=== PATIENT | male | born 1945 | race Caucasian/White ===

== ENCOUNTER 2016-07-26 08:29 | Day surgery (SDC) | payer MEDICARE ==
--- NOTE | 2016-07-25 08:04 | HP ---
DATE OF SURGERY: 07/26/2016 ADMISSION DIAGNOSIS: Screening colonoscopy. ANTICIPATED PROCEDURE: Colonoscopy. HISTORY OF PRESENT ILLNESS: The patient presents for a two year follow up status post resection. He had a partial colectomy open hand assist by Dr. Mathews 07/04/2014. PAST MEDICAL HISTORY: ALLERGIES: NONE. MEDICATIONS: None. PAST SURGICAL HISTORY: 2014. SOCIAL HISTORY: Negative. FAMILY HISTORY: Negative. REVIEW OF SYSTEMS: Negative. PHYSICAL EXAMINATION: VITAL SIGNS: Normal. CHEST: Clear. COR: Regular. ABDOMEN: Well healed incision. IMPRESSION: Follow up. PLAN: Colonoscopy.
[~2016-07-26 08:29] MED LIST: DEMEROL 50 MG IV ONE; VERSED 5 MG/5 ML IV ONE
[2016-07-26] MEDS ORDERED: Sodium Chloride 0.9% 1000 ML 1,000 ML IV SCH (08:45)
[2016-07-26] MEDS ORDERED: Sodium Chloride 0.9% 1000 ML 1,000 ML ONE (12:49)
[2016-07-26 15:12] VITALS: BP 108/48; PULSE 56; O2SAT 97
--- NOTE | 2016-07-26 15:13 | OP ---
SURGERY DATE: 07/26/16 SURGERY TIME: 1245 PREOPERATIVE DIAGNOSIS: 1. TWO YEAR FOLLOW-UP OF COLON RESECTION FOR TUMOR. POSTOPERATIVE DIAGNOSIS: 1. 1 POLYP, 8 MM IN MID TRANSVERSE COLON. PROCEDURE: 1. Colonoscopic examination complete with hot polypectomy X 1. SURGEON: Gokul Reyes M.D. ANESTHESIA: IV sedation. COMPLICATIONS: None. CONDITION: Stable. INDICATION: 71 y/o requiring follow-up. OPERATIVE PROCEDURE: Taken to endoscopy. Left lateral decubitus position. Anal digital examination satisfactory. Scope introduced. Scope advanced to the ileum. On circumferential withdrawal, residual ileocolonic area satisfactory. Transverse colon satisfactory. In the splenic flexure portion of the left transverse colon an 8 mm polyp was picked up and taken to extinction. Hepatic flexure satisfactory. Descending satisfactory. Sigmoid slightly tortuous. Rectum and anus satisfactory. IMPRESSION: 1. COMPLETE EXAM. 2. HOT POLYPECTOMY X 1. FOLLOW-UP: 2 years.
== END 2016-07-26 14:45 | disposition home or self-care (01) ==
LOC: SDC 08:29
PROVIDERS: ATTEND Surgery
PROC: 0DJD8ZZ Inspection of Lower Intestinal Tract, Via Natural or Artificial Opening Endoscopic (ICD-10-PCS; principal; 2016-07-26)
DX: Z12.11 Encounter for screening for malignant neoplasm of colon (principal); Z85.038 Personal history of other malignant neoplasm of large intestine; Z90.49 Acquired absence of other specified parts of digestive tract
CPT/HCPCS: G0105 ×2; 36415; J2175; J2250

== ENCOUNTER 2019-01-05 12:48 | Day surgery (SDC) | payer MEDICARE ==
--- NOTE | 2019-01-05 08:44 | HP ---
DATE OF SURGERY: 01/05/2019 HISTORY OF PRESENT ILLNESS: The patient is a 73 year-old who has a cyst on his head increasing in size in need of excision at this point. PAST MEDICAL HISTORY: Hypertension, hypothyroidism. He is a little bit overweight. He had prostate cancer in the past. PAST SURGICAL HISTORY: Back surgery. Hip arthroplasty in the past. Colonoscopy with polyps in the past. Laparotomy partial colectomy for benign polyp in the past. He had prostate surgery in the past. MEDICATIONS: Lisinopril. ALLERGIES: NKDA. FAMILY HISTORY: Negative in regards to this problem. SOCIAL HISTORY: No smoking. He drinks some alcohol denies abuse. REVIEW OF SYSTEMS: Fourteen systems reviewed. No chest pain or palpitations other systems negative or noncontributory as above and per preadmission questionnaire. PHYSICAL EXAMINATION: GENERAL: No acute distress. HEENT: Sclerae nonicteric. Enlarging cyst or nodule on his scalp. NECK: No JVD. CHEST: Equal excursion, nonlabored breathing. CVS: Regular rate and rhythm. ABDOMEN: Soft. EXTREMITIES: No significant edema. NEURO: Alert, oriented, moving extremities symmetrically. No gross motor deficits noted. IMPRESSION: He has enlarging cyst or nodule on his scalp. I feel he will benefit from excision and biopsy. Risks and benefits explained in detail including but not limited to bleeding or infection, risk of wound dehiscence possibly requiring healing by secondary intent or packing, general risk of aches, pains, burning or numbness possibly termite control technician or chronic in nature, general risk of anesthesia. He also understands there is possibility what we excise will not return but he could get a similar cyst or nodule adjacent to or elsewhere on his scalp or body. He understands and agrees to the planned procedure, will proceed with outpatient excisional biopsy scalp cyst or nodule.
[~2019-01-05 12:48] MED LIST changes: +CEFAZOLIN 2 GM-D5W BAG** 2 GM/50 ML ML IV SCH; -DEMEROL 50 MG IV ONE; +Lactated Ringers 0 ML IV ONE; +Lactated Ringers 1,000 ML IV ONE; +Lactated Ringers 1,000 ML IV SCH; +Sensorcaine 0.25% 10 ML ONE; -VERSED 5 MG/5 ML IV ONE; +XYLOCAINE 1% HCL 20 ML MDV ONE
[2019-01-05] MEDS ORDERED: DIPRIVAN 200 MG/20 ML IV ONE (14:28)
[2019-01-05] MEDS ORDERED: SUBLIMAZE 100 MCG/2 ML ONE ×2 (14:28→14:42)
[2019-01-05] MEDS ORDERED: Versed 2 MG/2 ML Injection ONE (14:29)
[2019-01-05 15:44] VITALS: O2SAT 95
[2019-01-05] MEDS ORDERED: Zestril 20 MG PO ONE (16:13)
[2019-01-05 16:27] VITALS: PULSE 70
[2019-01-05 16:51] VITALS: BP 150/84
--- NOTE | 2019-01-06 10:24 | OP ---
SURGERY DATE/TIME: 01/05/2019 1427 PREOPERATIVE DIAGNOSIS: Enlarging scalp cyst or nodule. POSTOPERATIVE DIAGNOSIS: Enlarging scalp cyst or nodule. PROCEDURE: Excisional biopsy scalp cyst approximately 1.3 cm with intermediate closure. SURGEON: Dr. Juan Mathews. ANESTHESIA: General. ESTIMATED BLOOD LOSS: Minimal. INDICATIONS: As noted above. Risks and benefits explained in detail and not limited to and consent obtained. DESCRIPTION OF PROCEDURE AND FINDINGS: The patient is taken to the operating room. General anesthesia induced. The scalp prepped and draped in usual sterile fashion. After official time out and no disagreement with planned procedure, incision made directly overlying the presumed cyst. Dissection carried down circumferentially around what appeared to be a cyst and carefully passed off. It measured about 1.3 cm with margins, passed off for pathology. The wound is irrigated out. Good hemostasis noted. It was then closed in layers with deep and superficial subcu closed with 3-0 Vicryl. Skin closed with combination of interrupted and vertical mattress 3-0 Prolene. Sterile dressing applied. Patient tolerated the procedure well. There were no immediate complications. Findings discussed with the family out in the waiting. He was transferred to recovery room in stable condition.
== END 2019-01-05 16:45 | disposition home or self-care (01) ==
LOC: SDC 12:48
PROVIDERS: ATTEND Surgery
DX: L72.11 Pilar cyst (principal)
CPT/HCPCS: 99100; J0690; J2250; J2704; J3010; A9270-GY

== ENCOUNTER 2020-02-15 08:54 | Day surgery (SDC) | payer MEDICARE ==
--- NOTE | 2020-02-15 08:27 | HP ---
DATE OF SURGERY: 02/15/2020 HISTORY OF PRESENT ILLNESS: The patient is a 74 year old with no bloody stools, no pain, and no change in bowel movements. He had history of polyps in the past. He is in need of follow up colonoscopy. PAST MEDICAL HISTORY: Hypertension. Diabetes with polyneuropathy. 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 Endoscopy in the past. PAST SURGICAL HISTORY: Ventral hernia repair. Laparoscopic assisted partial colectomy right colon in the past and re-anastomosis. MEDICATIONS: He takes some blood pressure medication the name of he does not know. ALLERGIES: NKDA. FAMILY HISTORY: Negative in regards to this problem. SOCIAL HISTORY: Denies smoking. Does drink some alcohol denies abuse. REVIEW OF SYSTEMS: Fourteen systems reviewed. No chest pain or palpitations. Other systems negative or noncontributory as above and per preadmission questionnaire. PHYSICAL EXAMINATION: GENERAL: No acute distress. HEENT: Sclerae nonicteric. NECK: No JVD. CHEST: Equal excursion, nonlabored breathing. CVS: Regular rate and rhythm. ABDOMEN: Soft. No peritoneal signs. EXTREMITIES: No significant edema. NEURO: Alert, oriented, moving extremities symmetrically. No gross motor deficits noted. RECTAL: Deferred timed to endoscopy exam. PSYCH: Appropriate mood and affect. IMPRESSION: History of tubulovillous adenoma in the past. He is in need of follow up colonoscopic evaluation. General risk of bleeding or infection, risk of bowel injury or perforation possibly requiring open procedure, risk of missed or nondiagnosis or incomplete exam possibly requiring barium enema, other studies or procedures, general risk of anesthesia or sedation, risk of bowel prep but not limited to. He understands and agrees to the planned procedure, will proceed with outpatient colonoscopy.
[~2020-02-15 08:54] MED LIST changes: -CEFAZOLIN 2 GM-D5W BAG** 2 GM/50 ML ML IV SCH; +DIPRIVAN 200 MG/20 ML IV ONE; +Ketamine HCl 50 MG/ML ONE; -Lactated Ringers 0 ML IV ONE; -Lactated Ringers 1,000 ML IV ONE; -Lactated Ringers 1,000 ML IV SCH; -Sensorcaine 0.25% 10 ML ONE; -XYLOCAINE 1% HCL 20 ML MDV ONE
[2020-02-15] MEDS ORDERED: Lactated Ringers 1,000 ML IV SCH (09:30)
[2020-02-15 12:02] VITALS: PULSE 55
[2020-02-15 12:15] VITALS: BP 150/99; O2SAT 99
--- NOTE | 2020-02-15 15:43 | OP ---
SURGERY DATE/TIME: 02/15/2020 1057 PREOPERATIVE DIAGNOSES: 1) History of tubulovillous adenoma. 2) History of right colectomy in the past, need follow up colonoscopy. POSTOPERATIVE DIAGNOSES: 1) Small colon polyp. 2) Mild diverticulosis. 3) Fair but slightly limited bowel prep. 4) Small internal hemorrhoids. PROCEDURES: 1) Colonoscopy to terminal ileum/ileocolic anastomotic site. 2) Hot snare polypectomy small descending colon polyp. 3) Hot biopsy removal of small early polyp versus hyperplastic lesion in the rectum x2. SURGEON: Dr. Juan Mathews. CLERICAL SECRETARY: Floresita Luke, Medical Student III. ANESTHESIA: MAC. ESTIMATED BLOOD LOSS: Minimal. INDICATIONS: As noted above. Risks and benefits explained in detail but not limited to and consent obtained. DESCRIPTION OF PROCEDURE AND FINDINGS: The patient is taken to the operating room. MAC anesthesia introduced. After official time out and no disagreement with planned procedure, digital rectal exam did not reveal any rectal masses. He did have some small internal hemorrhoids. Video colonoscope inserted and passed up the slightly tortuous sigmoid, descending and transverse colon around to the ileocolic anastomotic site at the very proximal part of the terminal ileum, this was grossly unremarkable. Anastomosis widely patent. No evidence of any polyps. Prep overall was fair. Large amount of foamy, liquidy semi-stool suctioned irrigated as clear as possible but slightly warranted exam for very small lesions. Scope slowly and carefully withdrawn over the next ten minutes. Again, taking extra time to suction irrigate the stool out of the colon. There was a small polyp about 4 mm in size in the descending colon removed with hot snare polypectomy with brief bursts of cautery. Good hemostasis noted. The staff said it was retrieved. The scope slowly and carefully withdrawn. Mild diverticula. Otherwise back in the rectum had some small internal and external hemorrhoids. There were two very tiny 1.5 mm to 2 mm early polyps versus hyperplastic lesion that were removed with the hot biopsy forceps with brief bursts of cautery. Good hemostasis noted. The patient tolerated the procedure well. There was no family available here to discuss the findings with.
== END 2020-02-15 12:15 | disposition home or self-care (01) ==
LOC: SDC 08:54
PROVIDERS: ATTEND Surgery
DX: Z09 Encounter for follow-up examination after completed treatment for conditions other than malignant neoplasm (principal); D12.4 Benign neoplasm of descending colon; K64.8 Other hemorrhoids; K57.30 Diverticulosis of large intestine without perforation or abscess without bleeding; K64.4 Residual hemorrhoidal skin tags; K62.1 Rectal polyp; I10 Essential (primary) hypertension; E11.9 Type 2 diabetes mellitus without complications
CPT/HCPCS: 99100; J2704

== ENCOUNTER 2021-10-23 08:27 | Emergency (ER) | payer MEDICARE ==
--- NOTE | 2021-10-23 08:36 | ERPHSYRPT ---
- History of Present Illness Time Seen by Provider: 10/23/21 08:36 Source: patient, family Exam Limitations: no limitations Physician History: This is a 76-year-old white male patient of nurse practitioner Michele who presents with 2-day history of worsening sore throat, cough and chest congestion. He has had diarrhea as well. He has not had any vomiting. He denies chest pain. He has no known exposures to individuals with similar symptoms or with flu diagnoses. Patient drove himself into the hospital. He has not had a fever. He does not have significant shortness of breath. Timing/Duration: day(s) (2) Cough Quality/Degree: mild Possible Cause: occasional episodes Modifying Factors: Improves With: activity, coughing Associated Symptoms: cough, sore throat, No fever, No chills, No chest pain/soreness, No shortness of breath Allergies/Adverse Reactions: No Known Drug Allergies Allergy (Verified 10/23/21 08:50) Home Medications: Lisinopril 10 mg [Zestril 10 MG] 10 mg PO DAILY 07/26/16 [History] Hx Influenza Vaccination/Date Given: No Hx Pneumococcal Vaccination/Date Given: No Travel Risk - International Travel Have you traveled outside of the country in past 3 weeks: No - Coronavirus Screening Are you exhibiting any of the following symptoms?: Yes Symptoms: Cough: New Onset, Vomiting/Diarrhea Close contact with a COVID-19 positive Pt in past 14-21 Days: No - Review of Systems Constitutional: No Symptoms Eyes: No Symptoms Ears, Nose, & Throat: No Symptoms Respiratory: Cough Cardiac: No Symptoms Abdominal/Gastrointestinal: Diarrhea, No Abdominal Pain, No Nausea, No Vomiting Genitourinary Symptoms: No Symptoms Musculoskeletal: No Symptoms Skin: No Symptoms Neurological: No Symptoms Psychological: No Symptoms Endocrine: No Symptoms Hematologic/Lymphatic: No Symptoms Immunological/Allergic: No Symptoms All Other Systems: Reviewed and Negative - Past Medical History Pertinent Past Medical History: Yes Neurological History: No Pertinent History ENT History: No Pertinent History Cardiac History: Hypertension Respiratory History: No Pertinent History Endocrine Medical History: No Pertinent History Musculoskeletal History: Degenerative Disk Disease, Osteoarthritis GI Medical History: Hernia History: Other Psycho-Social History: No Pertinent History Male Reproductive Disorders: Prostate Cancer, Prostate Problems Other Medical History: prostate cancer,colon polyps removed 3,hernia times 4 repaired,back surgery - Past Surgical History Past Surgical History: Yes Neuro Surgical History: No Pertinent History Cardiac: No Pertinent History Respiratory: No Pertinent History Gastrointestinal: Hernia Repair Genitourinary: No Pertinent History Musculoskeletal: Orthopedic Surgery Male Surgical History: Prostate Surgery Other Surgical History: colonoscopy polyps removed,back,hernia times 4, 2 hip replacements, back surgery - Social History Smoking Status: Former smoker Exposure to second hand smoke: No Drug Use: none - Nursing Vital Signs Nursing Vital Signs: Initial Vital Signs Temperature 98.4 F 10/23/21 08:35 Pulse Rate 74 10/23/21 08:35 Respiratory Rate 31 H 10/23/21 08:35 Blood Pressure 135/93 10/23/21 08:35 O2 Sat by Pulse Oximetry 96 10/23/21 08:35 Pain Scale Pain Intensity 0 - Physical Exam General Appearance: no apparent distress, alert, anxiety, obese Eye Exam: PERRL/EOMI, eyes nml inspection Ears, Nose, Throat Exam: normal ENT inspection, moist mucous membranes Neck Exam: normal inspection, non-tender, supple, full range of motion Respiratory Exam: normal breath sounds, lungs clear, airway intact, No chest tenderness, No respiratory distress Cardiovascular Exam: regular rate/rhythm, normal heart sounds, normal peripheral pulses Gastrointestinal/Abdomen Exam: soft, normal bowel sounds, No tenderness Rectal Exam: not done Back Exam: normal inspection, normal range of motion, No CVA tenderness, No vertebral tenderness Extremity Exam: normal inspection, normal range of motion, pelvis stable Neurologic Exam: alert, oriented x 3, cooperative, 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, normal mood/affect, nml cerebellar function, nml station & gait, sensation nml Skin Exam: normal color, warm, dry Lymphatic Exam: No adenopathy SpO2 Interpretation: normal O2 Delivery: Room Air - Course Nursing assessment & vital signs reviewed: Yes EKG Interpreted by Me: RATE (76), Sinus Rhythm, NORMAL AXIS, NORMAL INTERVALS, NORMAL QRS, NORMAL ST-T, Other (No acute ischemic changes on today's EKG.) Ordered Tests: Active Orders 24 hr Category Date Time Status Baler Operator STAT Care 10/23/21 08:55 Active EKG-ER Only STAT Care 10/23/21 08:55 Active IV Insertion STAT Care 10/23/21 08:55 Active Pulse Oximetry (ED) STAT Care 10/23/21 08:55 Active CHEST 1 VIEW (PORTABLE) Stat Exams 10/23/21 08:55 Completed BLOOD CULTURE Stat Lab 10/23/21 09:37 Received CBC W DIFF Stat Lab 10/23/21 09:00 Completed CMP Stat Lab 10/23/21 09:31 Received [place] Screen Stat Lab 10/23/21 09:00 Completed NT PRO BNP Stat Lab 10/23/21 09:31 Received TROPONIN Q3H Lab 10/23/21 09:00 Completed TROPONIN Q3H Lab 10/23/21 12:00 Ordered TROPONIN Q3H Lab 10/23/21 15:00 Ordered TROPONIN Q3H Lab 10/23/21 18:00 Ordered TROPONIN Q3H Lab 10/23/21 21:00 Ordered UA W/RFX CULTURE Stat Lab 10/23/21 09:06 Results Medication Summary Discontinued Medications Generic Name Dose Route Start Last Admin Trade Name Freq PRN Reason Stop Dose Admin Sodium Chloride 1,000 mls @ 999 mls/hr 10/23/21 09:13 10/23/21 10:29 Sodium Chloride 0.9% 1000 Ml IV 10/23/21 10:13 Infused .Q1H1M STA Infusion Sodium Chloride Confirm 10/23/21 09:21 Sodium Chloride 0.9% 1000 Ml Administered 10/23/21 09:22 Dose 1,000 mls @ ud .ROUTE .STK-MED ONE Ceftriaxone Sodium/Dextrose 1 g in 50 mls @ 100 mls/hr 10/23/21 09:47 10/23/21 10:55 Rocephin 1 Gm-D5w 50 Ml Bag IV 10/23/21 10:16 Infused STAT STA Infusion Ceftriaxone Sodium/Dextrose Confirm 10/23/21 10:19 Rocephin 1 Gm-D5w 50 Ml Bag Administered 10/23/21 10:20 Dose 1 g in 50 mls @ ud IV .STK-MED ONE Lab/Rad Data: Laboratory Result Diagrams 10/23/21 09:00 Laboratory Results 10/23/21 10/23/21 10/23/21 Range/Units 09:38 09:38 09:06 WBC (4.0-10.5) x10^3/uL RBC (4.1-5.6) x10^6/uL Hgb (12.5-18.0) g/dL Hct (42-50) % MCV (78-100) fL MCH (26-32) pg MCHC (32-36) g/dL RDW (11.5-14.0) % Plt Count (150-450) x10^3/uL MPV (7.5-11.0) fL Gran % (36.0-66.0) % Immature Gran % (Auto) (0.00-0.4) % Nucleat RBC Rel Count (0.00-0.1) % Eos # (Auto) (0-0.5) x10^3/uL Immature Gran # (Auto) (0.00-0.03) x10^3u/L Absolute Lymphs (auto) (1.0-4.6) x10^3/uL Absolute Monos (auto) (0.0-1.3) x10^3/uL Absolute Nucleated RBC (0.00-0.01) x10^3u/L Lymphocytes % (24.0-44.0) % Monocytes % (0.0-12.0) % Eosinophils % (0.00-5.0) % Basophils % (0.0-0.4) % Absolute Granulocytes (1.4-6.9) x10^3/uL Basophils # (0-0.4) x10^3/uL Troponin I (0.000-0.034) ng/mL Urinalys Dipstick Clnc Pending Urine Color LT.YELLOW (YELLOW) Urine Appearance CLEAR (CLEAR) Urine pH 5.5 (5-6) Ur Specific [place] 1.010 (1.005-1.025) POC Urine Protein Conf NEGATIVE (Negative) Urine Ketones NEGATIVE (NEGATIVE) Urine Nitrite NEGATIVE (NEGATIVE) Urine Bilirubin NEGATIVE (NEGATIVE) Urine Urobilinogen 0.2 (0-1) mg/dL Urine Leukocytes NEGATIVE (NEGATIVE) Urine WBC (Auto) 0-2 (0-5) /HPF Urine RBC (Auto) 0-2 (0-2) /HPF U Epithel Cells (Auto) OCCASIONAL (FEW) /HPF Urine Bacteria (Auto) NONE SEEN (NEGATIVE) /HPF Urine RBC TRACE NON-HEM (0-5) Marciano/ul Ur Culture Indicated? Pending Urine Glucose NEGATIVE (NEGATIVE) mg/dL Monoscreen (Negative) Influenza Type A Ag NEGATIVE (NEGATIVE) Influenza Type B Ag NEGATIVE (NEGATIVE) RSV (PCR) NEGATIVE (Negative) SARS-CoV-2 (PCR) NEGATIVE (NEGATIVE) Group A Strep Antibody NOT DETECTED (NEGATIVE) 10/23/21 10/23/21 10/23/21 Range/Units 09:00 09:00 09:00 WBC 4.9 (4.0-10.5) x10^3/uL RBC 4.10 (4.1-5.6) x10^6/uL Hgb 13.5 (12.5-18.0) g/dL Hct 39.5 L (42-50) % MCV 96.3 (78-100) fL MCH 32.9 H (26-32) pg MCHC 34.2 (32-36) g/dL RDW 12.9 (11.5-14.0) % Plt Count 147 L (150-450) x10^3/uL MPV 11.8 H (7.5-11.0) fL Gran % 74.9 H (36.0-66.0) % Immature Gran % (Auto) 0.6 H (0.00-0.4) % Nucleat RBC Rel Count 0.0 (0.00-0.1) % Eos # (Auto) 0.03 (0-0.5) x10^3/uL Immature Gran # (Auto) 0.03 (0.00-0.03) x10^3u/L Absolute Lymphs (auto) 0.64 L (1.0-4.6) x10^3/uL Absolute Monos (auto) 0.50 (0.0-1.3) x10^3/uL Absolute Nucleated RBC 0.00 (0.00-0.01) x10^3u/L Lymphocytes % 13.2 L (24.0-44.0) % Monocytes % 10.3 (0.0-12.0) % Eosinophils % 0.6 (0.00-5.0) % Basophils % 0.4 (0.0-0.4) % Absolute Granulocytes 3.63 (1.4-6.9) x10^3/uL Basophils # 0.02 (0-0.4) x10^3/uL Troponin I 0.013 (0.000-0.034) ng/mL Urinalys Dipstick Clnc Urine Color (YELLOW) Urine Appearance (CLEAR) Urine pH (5-6) Ur Specific [place] (1.005-1.025) POC Urine Protein Conf (Negative) Urine Ketones (NEGATIVE) Urine Nitrite (NEGATIVE) Urine Bilirubin (NEGATIVE) Urine Urobilinogen (0-1) mg/dL Urine Leukocytes (NEGATIVE) Urine WBC (Auto) (0-5) /HPF Urine RBC (Auto) (0-2) /HPF U Epithel Cells (Auto) (FEW) /HPF Urine Bacteria (Auto) (NEGATIVE) /HPF Urine RBC (0-5) Marciano/ul Ur Culture Indicated? Urine Glucose (NEGATIVE) mg/dL Monoscreen NEGATIVE (Negative) Influenza Type A Ag (NEGATIVE) Influenza Type B Ag (NEGATIVE) RSV (PCR) (Negative) SARS-CoV-2 (PCR) (NEGATIVE) Group A Strep Antibody (NEGATIVE) - Progress Progress: improved, re-examined Progress Note: 10/23/21 09:46 Chest x-ray shows subtle, patchy right midlung interstitial alveolar opacity without consolidation or large effusion. Blood Culture(s) Obtained: Yes Antibiotics given: Yes Counseled pt/family regarding: lab results, diagnosis, need for follow-up, rad results - Departure Departure Disposition: Home Clinical Impression: Right pulmonary infiltrate on CXR Condition: Stable Critical Care Time: No Referrals: ADRIAN FLOWERS NP [Primary Care Provider] - Follow up/PCP as directed Additional Instructions: Drink plenty fluids. Take your medication as prescribed. Follow-up with your primary care physician for further evaluation and management. Prescriptions: Hydrocodone/Acetaminophen [Hydrocodone-Acetamn 7.5-325/15] 10 ml PO Q8H PRN PRN #120 ml MDD 30 ml PRN Reason: Cough Cefdinir 300 mg PO BID #14 cap Prednisone 10 mg [Deltasone 10 mg] 10 mg PO TID #12 tablet
[2021-10-23] MEDS ORDERED: Sodium Chloride 0.9% 1000 ML 1,000 ML IV STA (09:13)
[2021-10-23] MEDS ORDERED: Sodium Chloride 0.9% 1000 ML 1,000 ML ONE (09:21)
[2021-10-23 09:27] LABS: Absolute Neutrophil Ct (ANC) 3.63 x10^3/uL (1.4-6.9); Basophil (Absolute #) 0.02 x10^3/uL (0-0.4); Eosinophil % 0.6 % (0.00-5.0); Eosinophil (Absolute #) 0.03 x10^3/uL (0-0.5); Hematocrit 39.5 % (42-50); Hemoglobin 13.5 g/dL (12.5-18.0); Lymphocyte (Absolute #) 0.64 x10^3/uL (1.0-4.6); Lymphocytes % 13.2 % (24.0-44.0); Mean Cell Volume 96.3 fL (78-100); Mean Corpuscular Hemoglobin 32.9 pg (26-32); Mean Corpuscular Hgb Concent. 34.2 g/dL (32-36); Mean Platelet Volume 11.8 fL (7.5-11.0); Monocytes % 10.3 % (0.0-12.0); Neutrophil % 74.9 % (36.0-66.0); Platelet Count 147 x10^3/uL (150-450); Red Cell Distribution Width 12.9 % (11.5-14.0); White Blood Count 4.9 x10^3/uL (4.0-10.5)
--- NOTE | 2021-10-23 09:40 | XRAY ---
Indication: Cough and congestion. Comparison: None Portable chest demonstrates subtle patchy right midlung interstitial alveolar opacity without consolidation/large effusion. Heart not enlarged. Bony thorax intact with mild degenerative changes.
[2021-10-23 09:44] LABS: RBC 0-2 /HPF (0-2); WBC 0-2 /HPF (0-5)
[2021-10-23] MEDS ORDERED: ROCEPHIN 1 Gm-D5w 50 ml Bag** 1 G/50 ML IVPB IV STA (09:47)
[2021-10-23 09:50] LABS: Appearance CLEAR (CLEAR)
[2021-10-23 09:51] LABS: Bilirubin NEGATIVE (NEGATIVE); Glucose NEGATIVE (NEGATIVE); Ketones NEGATIVE (NEGATIVE); Ph 5.5 (5-6); Protein,Urine Dip NEGATIVE (Negative); RBC TRACE NON-HEM Ery/ul (0-5)
[2021-10-23 09:52] LABS: Bacteria NONE SEEN /HPF (NEGATIVE); Epithelial Cells OCCASIONAL /HPF (FEW); Nitrite NEGATIVE (NEGATIVE); Urobilinogen 0.2 mg/dL (0-1)
[2021-10-23] MEDS ORDERED: ROCEPHIN 1 Gm-D5w 50 ml Bag** 1 G/50 ML IVPB IV ONE (10:19)
[2021-10-23 10:24] LABS: INFLUENZA A NEGATIVE (NEGATIVE); INFLUENZA B NEGATIVE (NEGATIVE); RESPIRATORY SYNCTIAL VIRUS NEGATIVE (Negative); SARS-CoV-2 Xpert Express NEGATIVE (NEGATIVE)
[2021-10-23 11:09] LABS: Dipstick done @ ? MAIN LAB; Urine Cultured Indicated? NO
[2021-10-23 11:23] VITALS: BP 131/81; PULSE 71; O2SAT 97
[2021-10-23 11:56] LABS: ALBUMIN 4.1 g/dL (3.5-5.0); ALKALINE PHOSPHATASE 79 U/L (38-126); BLOOD UREA NITROGEN 13 mg/dL (9-20); CHLORIDE 98 mmol/L (98-107); Calcium 8.7 mg/dL (8.4-10.2); Carbon Dioxide 22 mmol/L (22-30); EST GLOMERULAR FILTRATION RATE > 60.0 ML/MIN; Glucose 106 mg/dL (74-106); NT PRO BNP 1380 pg/mL (0-1800); Potassium 4.1 mmol/L (3.5-5.1); SGOT/AST 36 U/L (17-59); SGPT/ALT 19 U/L (0-50); SODIUM 130 mmol/L (137-145)
== END 2021-10-23 11:25 | disposition home or self-care (01) ==
LOC: ED 08:27
DX: R91.8 Other nonspecific abnormal finding of lung field (principal); J02.9 Acute pharyngitis, unspecified; R05.1 Acute cough; R09.81 Nasal congestion; R19.7 Diarrhea, unspecified; I10 Essential (primary) hypertension; Z79.891 Long term (current) use of opiate analgesic; Z79.52 Long term (current) use of systemic steroids; Z79.899 Other long term (current) drug therapy
CPT/HCPCS: 0241U; 36000; 36415; 71045; 80053; 81015; 83880; 84484; 85025; 86308; 87040; 87651; 93005; 93041; 94760; 96360; 96365; 99284; J0696

== ENCOUNTER 2022-01-17 09:03 | Emergency (ER) | payer MEDICARE ==
--- NOTE | 2022-01-17 09:18 | ERPHSYRPT ---
- History of Present Illness Time Seen by Provider: 01/17/22 09:18 Source: patient Exam Limitations: no limitations Patient Subjective Stated Complaint: pt here for right foot pain no injury, pain started yesterday Triage Nursing Assessment: pt unable to bear full weight on right foot, alert, resp easy, face mask in place, has slight swelling, warms and redness to top of foot , strong pedal pulse Physician History: This is a 76-year-old obese white male with history of hypertension and is also on Coumadin per his report and presents with sudden onset of right toe pain, redness and swelling that began yesterday and worsened throughout the evening. He denies any specific injury to the area. He has no history of gouty arthritis that has been diagnosed. He denies shortness of breath and he denies chest pain. Method of Injury: other Occurred: yesterday (No injury) Quality: aching, burning Severity of Pain-Max: moderate Severity of Pain-Current: moderate Modifying Factors: Improves With: movement Associated Symptoms: other (Hurts to bear weight) Allergies/Adverse Reactions: No Known Drug Allergies Allergy (Verified 01/17/22 09:13) Home Medications: Lisinopril 10 mg [Zestril 10 MG] 10 mg PO DAILY 07/26/16 [History] Hx Influenza Vaccination/Date Given: Yes Hx Pneumococcal Vaccination/Date Given: Yes Immunizations Up to Date: Yes Travel Risk - International Travel Have you traveled outside of the country in past 3 weeks: No - Coronavirus Screening Are you exhibiting any of the following symptoms?: No Close contact with a COVID-19 positive Pt in past 14-21 Days: No - Vaccine Status Have you recieved a Covid-19 vaccination: Yes Chronometer Tester: Moderna - Vaccination Dates Date of 2cond Vaccination (if applicable): unknown - Review of Systems Constitutional: No Symptoms Eyes: No Symptoms Ears, Nose, & Throat: No Symptoms Respiratory: No Symptoms Cardiac: No Symptoms Abdominal/Gastrointestinal: No Symptoms Genitourinary Symptoms: No Symptoms Musculoskeletal: No Symptoms Skin: Other (Redness swelling and tenderness dorsal aspect right foot in the area of the right first toe.) Psychological: No Symptoms Endocrine: No Symptoms Hematologic/Lymphatic: No Symptoms Immunological/Allergic: No Symptoms All Other Systems: Reviewed and Negative - Past Medical History Pertinent Past Medical History: Yes Neurological History: No Pertinent History ENT History: No Pertinent History Cardiac History: Hypertension Respiratory History: No Pertinent History Endocrine Medical History: No Pertinent History Musculoskeletal History: Degenerative Disk Disease, Osteoarthritis GI Medical History: Hernia History: Other Psycho-Social History: No Pertinent History Male Reproductive Disorders: Prostate Cancer, Prostate Problems Other Medical History: prostate cancer,colon polyps removed 3,hernia times 4 repaired,back surgery - Past Surgical History Past Surgical History: Yes Neuro Surgical History: No Pertinent History Cardiac: No Pertinent History Respiratory: No Pertinent History Gastrointestinal: Hernia Repair Genitourinary: No Pertinent History Musculoskeletal: Orthopedic Surgery Male Surgical History: Prostate Surgery Other Surgical History: colonoscopy polyps removed,back,hernia times 4, 2 hip replacements, back surgery - Social History Smoking Status: Former smoker Exposure to second hand smoke: No Drug Use: none Patient Lives Alone: No - Nursing Vital Signs Nursing Vital Signs: Initial Vital Signs Temperature 96.9 F 01/17/22 09:08 Pulse Rate 64 01/17/22 09:08 Respiratory Rate 18 01/17/22 09:08 Blood Pressure 142/85 01/17/22 09:08 O2 Sat by Pulse Oximetry 97 01/17/22 09:08 Pain Scale Pain Intensity 10 - Physical Exam General Appearance: no apparent distress, alert, anxiety Eyes, Ears, Nose, Throat Exam: normal ENT inspection, moist mucous membranes Neck Exam: normal inspection, non-tender, supple, full range of motion Cardiovascular/Respiratory Exam: chest non-tender, no respiratory distress Gastrointestinal/Abdominal Exam: non-tender Back Exam: normal inspection, normal range of motion, No CVA tenderness, No vertebral tenderness Hips Exam: bilateral: non-tender, normal inspection, normal range of motion, no evidence of injury Legs Exam: bilateral leg: non-tender, normal inspection, normal range of motion, no evidence of injury Knees Exam: bilateral knee: non-tender, normal inspection, normal range of motion, no evidence of injury Ankle Exam: bilateral ankle: non-tender, normal inspection, normal range of motion, no evidence of injury Foot Exam: right foot: soft tissue tenderness, swelling, other (Redness in the distribution of the right first toe and proximal dorsal aspect in the same area), left foot: non-tender, normal inspection, bilateral foot: normal range of motion, no evidence of injury Neuro/Tendon Exam: normal sensation, normal motor functions, normal tendon functions, responds to pain, no evidence tendon injury Mental Status Exam: alert, oriented x 3, cooperative Skin Exam: other (See above) SpO2 Interpretation: normal SpO2: 97 O2 Delivery: Room Air Ordered Tests: Active Orders 24 hr Category Date Time Status FOOT (MINIMUM 3 VIEWS) Stat Exams 01/17/22 09:19 Completed Uric Acid Stat Lab 01/17/22 09:55 Completed Lab/Rad Data: Laboratory Results 01/17/22 Range/Units 09:55 Uric Acid 8.5 H (3.5-7.2) mg/dL - Progress Progress: unchanged Progress Note: 01/17/22 09:48 X-ray right foot shows no acute fracture or dislocation. There are degenerative changes. - Departure Departure Disposition: Home Clinical Impression: Gout attack Condition: Stable Critical Care Time: No Referrals: ADRIAN FLOWERS NP [Primary Care Provider] - Follow up/PCP as directed Additional Instructions: Take your medication as prescribed. Follow-up with your prescribing provider today by phone to make a follow-up appointment for further evaluation management. Prescriptions: Oxycodone HCl/Acetaminophen [Percocet 5-325 mg Tablet] 1 each PO Q8H PRN PRN #6 tablet MDD 3 PRN Reason: Moderate To Severe Pain Prednisone 10 mg [Deltasone 10 mg] 10 mg PO TID #12 tablet
--- NOTE | 2022-01-17 09:40 | XRAY ---
Indication: Pain and swelling. 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 Comparison: None 3 nonweightbearing views right foot demonstrates osteopenia, mild 1st IP degenerative changes with medial soft tissue swelling, tiny heel spurs, and tiny cuboid accessory ossicle. No other bony, articular, or soft tissue abnormalities.
[2022-01-17 10:32] VITALS: BP 145/80; PULSE 62; O2SAT 99
== END 2022-01-17 10:37 | disposition home or self-care (01) ==
LOC: ED 09:03
DX: M10.9 Gout, unspecified (principal); M79.674 Pain in right toe(s); I10 Essential (primary) hypertension; Z79.01 Long term (current) use of anticoagulants; Z79.891 Long term (current) use of opiate analgesic; Z79.52 Long term (current) use of systemic steroids
CPT/HCPCS: 36415; 73630; 84550; 99283

== ENCOUNTER 2022-01-23 10:50 | Inpatient (IN) | payer MEDICARE ==
[2022-01-23] MEDS ORDERED: Sodium Chloride 0.9% 1000 ML 1,000 ML IV SCH (11:15)
[2022-01-23] MEDS ORDERED: TORAdol 30 mg Injection IV ONE (11:29)
--- NOTE | 2022-01-23 11:30 | ERPHSYRPT ---
- History of Present Illness Time Seen by Provider: 01/23/22 11:10 Source: patient Exam Limitations: no limitations Patient Subjective Stated Complaint: pt here for pain to right foot, he states pain radiates up to knee, no injury, wal treated for gout 2 weeks ago and pain is getting worse again Triage Nursing Assessment: pt alert, arrived per wc, unable to bear wt on foot, right foot swollen, has pedal pulse. slight redness to big toe Physician History: Patient is a 76-year-old male presents to emergency department for evaluation of pain to his right foot. Patient states he has been experiencing pain for the past 2 weeks. Patient was in our ED for the same. Patient was diagnosed with gout. Patient states got medication improve his pain but then not completely resolve his pain. Patient ran through his got medication states his pain is recurred. Pain described as an ache has localized to the toe. There is a swelling to the IP joint of the right great toe. The foot is swollen. There is swelling of the right leg as well. No trauma. No fever. Pain worse with weightbearing pain improved with rest. No nausea vomiting or diaphoresis. Symptoms are mild to moderate in intensity. Palpation reproduces symptoms. Pain improved with rest. Patient voices no other complaints or concerns at this time. Portions of this note were created with voice recognition technology. There may be grammatical, spelling, punctuation or sound alike errors Timing/Duration: other (Pain significantly worse over the past couple days.) Severity: moderate Modifying Factors: Improves With: nothing Associated Symptoms: denies symptoms Allergies/Adverse Reactions: No Known Drug Allergies Allergy (Verified 01/23/22 11:14) Home Medications: Lisinopril 10 mg [Zestril 10 MG] 10 mg PO DAILY 07/26/16 [History] Hx Influenza Vaccination/Date Given: Yes Hx Pneumococcal Vaccination/Date Given: Yes Immunizations Up to Date: Yes Travel Risk - International Travel Have you traveled outside of the country in past 3 weeks: No - Coronavirus Screening Are you exhibiting any of the following symptoms?: No Close contact with a COVID-19 positive Pt in past 14-21 Days: No - Vaccine Status Have you recieved a Covid-19 vaccination: Yes Commissary Clerk: Moderna - Vaccination Dates Date of 2cond Vaccination (if applicable): unknown - Review of Systems Constitutional: No Symptoms, No Fever, No Chills Eyes: No Symptoms Ears, Nose, & Throat: No Symptoms Respiratory: No Symptoms, No Cough, No Dyspnea Cardiac: No Symptoms, No Chest Pain, No Edema, No Syncope Abdominal/Gastrointestinal: No Symptoms, No Abdominal Pain, No Nausea, No Vomiting, No Diarrhea Genitourinary Symptoms: No Symptoms, No Dysuria Musculoskeletal: No Symptoms, No Back Pain, No Neck Pain Skin: No Symptoms, No Rash Neurological: No Symptoms, No Dizziness, No Focal Weakness, No Sensory Changes Psychological: No Symptoms Endocrine: No Symptoms Hematologic/Lymphatic: No Symptoms Immunological/Allergic: No Symptoms All Other Systems: Reviewed and Negative - Past Medical History Pertinent Past Medical History: Yes Neurological History: No Pertinent History ENT History: No Pertinent History Cardiac History: Hypertension Respiratory History: No Pertinent History Endocrine Medical History: No Pertinent History Musculoskeletal History: Degenerative Disk Disease, Osteoarthritis GI Medical History: Hernia History: Other Psycho-Social History: No Pertinent History Male Reproductive Disorders: Prostate Cancer, Prostate Problems Other Medical History: prostate cancer,colon polyps removed 3,hernia times 4 repaired,back surgery - Past Surgical History Past Surgical History: Yes Neuro Surgical History: No Pertinent History Cardiac: No Pertinent History Respiratory: No Pertinent History Gastrointestinal: Hernia Repair Genitourinary: No Pertinent History Musculoskeletal: Orthopedic Surgery Male Surgical History: Prostate Surgery Other Surgical History: colonoscopy polyps removed,back,hernia times 4, 2 hip replacements, back surgery - Social History Smoking Status: Former smoker Exposure to second hand smoke: No Drug Use: none Patient Lives Alone: No - Nursing Vital Signs Nursing Vital Signs: Initial Vital Signs Temperature 98.5 F 01/23/22 11:03 Pulse Rate 67 01/23/22 11:03 Respiratory Rate 18 01/23/22 11:03 Blood Pressure 172/85 01/23/22 11:03 O2 Sat by Pulse Oximetry 96 01/23/22 11:03 Pain Scale Pain Intensity 8 - Physical Exam General Appearance: no apparent distress, alert Eye Exam: PERRL/EOMI, eyes nml inspection Ears, Nose, Throat Exam: normal ENT inspection, TMs normal, pharynx normal, moist mucous membranes Neck Exam: normal inspection, non-tender, supple, full range of motion Respiratory Exam: normal breath sounds, lungs clear, airway intact, No respiratory distress Cardiovascular Exam: regular rate/rhythm, normal heart sounds, normal peripheral pulses Gastrointestinal/Abdomen Exam: soft, normal bowel sounds, No tenderness, No mass Back Exam: normal inspection, normal range of motion, No CVA tenderness, No vertebral tenderness Extremity Exam: normal inspection, normal range of motion, pelvis stable, other (Right foot is swollen and edematous. There is an area of cellulitis to the right lateral aspect of patient's right foot. Patient also has onychomycosis of the right great toe.) Neurologic Exam: alert, oriented x 3, cooperative, normal mood/affect, nml cerebellar function, nml station & gait, sensation nml, No motor deficits Skin Exam: normal color, warm, dry, No rash Lymphatic Exam: No adenopathy SpO2 Interpretation: normal SpO2: 96 O2 Delivery: Room Air - Course Nursing assessment & vital signs reviewed: Yes EKG Interpreted by Me: RATE (65), Sinus Rhythm, NORMAL AXIS, NORMAL INTERVALS - Radiology Exams Foot X-ray Interpretation: Teleradiologist Report (Osteopenia first MTP degenerative changes with soft tissue swelling. Heel spur) - Radiology Ultrasound Exam Venous Lower Extremity Ultrasound: tele radiology report (Right lower extremity negative for DVT.) Ordered Tests: Active Orders 24 hr Category Date Time Status Semiconductor Manufacturing Technician STAT Care 01/23/22 11:15 Active EKG-ER Only STAT Care 01/23/22 11:14 Active IV Insertion STAT Care 01/23/22 11:14 Active Pulse Oximetry (ED) STAT Care 01/23/22 11:14 Active FOOT (MINIMUM 3 VIEWS) Stat Exams 01/23/22 11:16 Completed VENOUS UNILAT/LIMITED EXTREMIT [US] Stat Exams 01/23/22 11:18 Completed BLOOD CULTURE Stat Lab 01/23/22 11:50 Received CBC W DIFF Stat Lab 01/23/22 11:14 Completed CMP Stat Lab 01/23/22 11:50 Completed Lactic Acid Stat Lab 01/23/22 11:53 Completed UA W/RFX CULTURE Stat Lab 01/23/22 12:34 Completed Medication Summary Generic Name Dose Route Start Last Admin Trade Name Freq PRN Reason Stop Dose Admin Sodium Chloride 1,000 mls @ 100 mls/hr 01/23/22 11:15 01/23/22 11:57 Sodium Chloride 0.9% 1000 Ml IV 02/22/22 11:14 100 mls/hr .Q10H EROS Administration Vancomycin HCl 2 gm in 400 mls @ 133.333 mls/hr 01/23/22 13:39 Vancomycin 2 Gram/400 Ml Bag IV 01/23/22 16:38 STAT ONE Piperacillin Sod/Tazobactam 100 mls @ 200 mls/hr 01/23/22 13:39 Sod 3.375 gm/ Sodium Chloride IV 01/23/22 14:08 STAT ONE Discontinued Medications Generic Name Dose Route Start Last Admin Trade Name Jonel PRN Reason Stop Dose Admin Ketorolac Tromethamine 30 mg 01/23/22 11:29 01/23/22 11:58 Ketorolac Tromethamine 30 Mg/Ml Inj IV 01/23/22 11:30 30 mg STAT ONE Administration Ketorolac Tromethamine Confirm 01/23/22 11:54 Ketorolac Tromethamine 30 Mg/Ml Inj Administered 01/23/22 11:55 Dose 30 mg .ROUTE .[email or web address] ONE Lab/Rad Data: Laboratory Result Diagrams 01/23/22 11:14 01/23/22 11:50 Laboratory Results 01/23/22 01/23/22 01/23/22 Range/Units Unknown 12:34 11:53 WBC (4.0-10.5) x10^3/uL RBC (4.1-5.6) x10^6/uL Hgb (12.5-18.0) g/dL Hct (42-50) % MCV (78-100) fL MCH (26-32) pg MCHC (32-36) g/dL RDW (11.5-14.0) % Plt Count (150-450) x10^3/uL MPV (7.5-11.0) fL Gran % (36.0-66.0) % Immature Gran % (Auto) (0.00-0.4) % Nucleat RBC Rel Count (0.00-0.1) % Eos # (Auto) (0-0.5) x10^3/uL Immature Gran # (Auto) (0.00-0.03) x10^3u/L Absolute Lymphs (auto) (1.0-4.6) x10^3/uL Absolute Monos (auto) (0.0-1.3) x10^3/uL Absolute Nucleated RBC (0.00-0.01) x10^3u/L Lymphocytes % (24.0-44.0) % Monocytes % (0.0-12.0) % Eosinophils % (0.00-5.0) % Basophils % (0.0-0.4) % Absolute Granulocytes (1.4-6.9) x10^3/uL Basophils # (0-0.4) x10^3/uL Sodium (137-145) mmol/L Potassium (3.5-5.1) mmol/L Chloride (98-107) mmol/L Carbon Dioxide (22-30) mmol/L Anion Gap (5-15) MEQ/L BUN (9-20) mg/dL Creatinine (0.66-1.25) mg/dL Estimated GFR ML/MIN Glucose (74-106) mg/dL Lactic Acid 0.8 (0.4-2.0) Calcium (8.4-10.2) mg/dL Total Bilirubin (0.2-1.3) mg/dL AST (17-59) U/L ALT (0-50) U/L Alkaline Phosphatase (38-126) U/L Serum Total Protein (6.3-8.2) g/dL Albumin (3.5-5.0) g/dL Urinalys Dipstick Clnc MAIN LAB Urine Color YELLOW (YELLOW) Urine Appearance CLEAR (CLEAR) Urine pH 5.5 (5-6) Ur Specific [place] 1.020 (1.005-1.025) POC Urine Protein Conf NEGATIVE (Negative) Urine Ketones NEGATIVE (NEGATIVE) Urine Nitrite NEGATIVE (NEGATIVE) Urine Bilirubin NEGATIVE (NEGATIVE) Urine Urobilinogen 1 (0-1) mg/dL Urine Leukocytes NEGATIVE (NEGATIVE) Urine WBC (Auto) 3-5 (0-5) /HPF Urine RBC (Auto) NONE (0-2) /HPF U Epithel Cells (Auto) NONE (FEW) /HPF Urine Bacteria (Auto) NONE (NEGATIVE) /HPF Urine RBC NEGATIVE (0-5) Marciano/ul Urine Mucus (Auto) SLIGHT (NEGATIVE) /HPF Ur Culture Indicated? NO Urine Glucose NEGATIVE (NEGATIVE) mg/dL Influenza Type A Ag NEGATIVE (NEGATIVE) Influenza Type B Ag NEGATIVE (NEGATIVE) RSV (PCR) NEGATIVE (Negative) SARS-CoV-2 (PCR) NEGATIVE (NEGATIVE) 01/23/22 01/23/22 Range/Units 11:50 11:14 WBC 9.3 (4.0-10.5) x10^3/uL RBC 3.84 L (4.1-5.6) x10^6/uL Hgb 13.1 (12.5-18.0) g/dL Hct 39.6 L (42-50) % MCV 103.1 H (78-100) fL MCH 34.1 H (26-32) pg MCHC 33.1 (32-36) g/dL RDW 13.6 (11.5-14.0) % Plt Count 248 (150-450) x10^3/uL MPV 10.8 (7.5-11.0) fL Gran % 71.2 H (36.0-66.0) % Immature Gran % (Auto) 1.1 H (0.00-0.4) % Nucleat RBC Rel Count 0.0 (0.00-0.1) % Eos # (Auto) 0.06 (0-0.5) x10^3/uL Immature Gran # (Auto) 0.10 H (0.00-0.03) x10^3u/L Absolute Lymphs (auto) 1.47 (1.0-4.6) x10^3/uL Absolute Monos (auto) 1.04 (0.0-1.3) x10^3/uL Absolute Nucleated RBC 0.00 (0.00-0.01) x10^3u/L Lymphocytes % 15.7 L (24.0-44.0) % Monocytes % 11.1 (0.0-12.0) % Eosinophils % 0.6 (0.00-5.0) % Basophils % 0.3 (0.0-0.4) % Absolute Granulocytes 6.64 (1.4-6.9) x10^3/uL Basophils # 0.03 (0-0.4) x10^3/uL Sodium 138 (137-145) mmol/L Potassium 3.9 (3.5-5.1) mmol/L Chloride 104 (98-107) mmol/L Carbon Dioxide 30 (22-30) mmol/L Anion Gap 7.9 (5-15) MEQ/L BUN 10 (9-20) mg/dL Creatinine 0.80 (0.66-1.25) mg/dL Estimated GFR > 60.0 ML/MIN Glucose 111 H (74-106) mg/dL Lactic Acid (0.4-2.0) Calcium 8.6 (8.4-10.2) mg/dL Total Bilirubin 0.90 (0.2-1.3) mg/dL AST 22 (17-59) U/L ALT 17 (0-50) U/L Alkaline Phosphatase 80 (38-126) U/L Serum Total Protein 6.5 (6.3-8.2) g/dL Albumin 3.9 (3.5-5.0) g/dL Urinalys Dipstick Clnc Urine Color (YELLOW) Urine Appearance (CLEAR) Urine pH (5-6) Ur Specific [place] (1.005-1.025) POC Urine Protein Conf (Negative) Urine Ketones (NEGATIVE) Urine Nitrite (NEGATIVE) Urine Bilirubin (NEGATIVE) Urine Urobilinogen (0-1) mg/dL Urine Leukocytes (NEGATIVE) Urine WBC (Auto) (0-5) /HPF Urine RBC (Auto) (0-2) /HPF U Epithel Cells (Auto) (FEW) /HPF Urine Bacteria (Auto) (NEGATIVE) /HPF Urine RBC (0-5) Marciano/ul Urine Mucus (Auto) (NEGATIVE) /HPF Ur Culture Indicated? Urine Glucose (NEGATIVE) mg/dL Influenza Type A Ag (NEGATIVE) Influenza Type B Ag (NEGATIVE) RSV (PCR) (Negative) SARS-CoV-2 (PCR) (NEGATIVE) - Progress Progress: improved Progress Note: Patient reassessed. Pain improved. Work-up is essentially nonremarkable. No leukocytosis. Vital stable. X-ray foot negative. Patient appears to have a cellulitis on the lateral aspect of the right foot. He is unable to ambulate due to pain. Right lower extremity ultrasound negative for DVT. After lengthy discussion with daughter and patient they decided to be admitted for further evaluation and treatment. Daughter concerned that this is patient's second visit for foot pain. Symptoms are progressive. Patient unable to ambulate. They agree to admission [facility] for further evaluati on and treatment. Case discussed with Dr. Guerra who accepts admission to observation. COVID test negative. 01/23/22 13:[address] Catarina Will see patient in: hospital (observation) Counseled pt/family regarding: lab results, diagnosis, rad results - Departure Departure Disposition: Observation Clinical Impression: Cellulitis, Foot pain, right, Onychomycosis Condition: Stable Critical Care Time: No Referrals: ADRIAN FLOWERS NP [Primary Care Provider] - Follow up/PCP as directed
--- NOTE | 2022-01-23 11:39 | XRAY ---
Indication: Swelling. Comparison: January 17, 2022 3 nonweightbearing views right foot unchanged again demonstrating osteopenia, mild 1st MTP degenerative changes with medial great toe soft tissue swelling, tiny heel spurs, and cuboid accessory ossicle. No new/acute findings.
[2022-01-23] MEDS ORDERED: Sodium Chloride 0.9% 1000 ML 1,000 ML ONE ×2 (11:54→21:40)
[2022-01-23] MEDS ORDERED: TORAdol 30 mg Injection ONE (11:54)
--- NOTE | 2022-01-23 11:55 | XRAY ---
Indication: Right leg pain and swelling. Two-dimensional sonogram and color Doppler imaging of the major venous vessels of the right leg performed. Comparison: None No thrombus seen in the examined deep venous vessels of the right leg including greater saphenous vein. Veins demonstrate normal compressibility. Venous waveforms are normal with and without augmentation. Impression: Right leg negative for DVT.
[2022-01-23 12:04] LABS: Absolute Neutrophil Ct (ANC) 6.64 x10^3/uL (1.4-6.9); Basophil (Absolute #) 0.03 x10^3/uL (0-0.4); Eosinophil % 0.6 % (0.00-5.0); Eosinophil (Absolute #) 0.06 x10^3/uL (0-0.5); Hematocrit 39.6 % (42-50); Hemoglobin 13.1 g/dL (12.5-18.0); Lymphocyte (Absolute #) 1.47 x10^3/uL (1.0-4.6); Lymphocytes % 15.7 % (24.0-44.0); Mean Cell Volume 103.1 fL (78-100); Mean Corpuscular Hemoglobin 34.1 pg (26-32); Mean Corpuscular Hgb Concent. 33.1 g/dL (32-36); Mean Platelet Volume 10.8 fL (7.5-11.0); Monocyte (Absolute #) 1.04 x10^3/uL (0.0-1.3); Monocytes % 11.1 % (0.0-12.0); Neutrophil % 71.2 % (36.0-66.0); Platelet Count 248 x10^3/uL (150-450); Red Blood Count 3.84 x10^6/uL (4.1-5.6); Red Cell Distribution Width 13.6 % (11.5-14.0); White Blood Count 9.3 x10^3/uL (4.0-10.5)
[2022-01-23 12:18] LABS: ALBUMIN 3.9 g/dL (3.5-5.0); ALKALINE PHOSPHATASE 80 U/L (38-126); ANION GAP 7.9 MEQ/L (5-15); BLOOD UREA NITROGEN 10 mg/dL (9-20); CHLORIDE 104 mmol/L (98-107); Calcium 8.6 mg/dL (8.4-10.2); Carbon Dioxide 30 mmol/L (22-30); EST GLOMERULAR FILTRATION RATE > 60.0 ML/MIN; Glucose 111 mg/dL (74-106); Potassium 3.9 mmol/L (3.5-5.1); SGOT/AST 22 U/L (17-59); SGPT/ALT 17 U/L (0-50); SODIUM 138 mmol/L (137-145); Total Protein 6.5 g/dL (6.3-8.2)
[2022-01-23 12:43] LABS: INFLUENZA A NEGATIVE (NEGATIVE); INFLUENZA B NEGATIVE (NEGATIVE); RESPIRATORY SYNCTIAL VIRUS NEGATIVE (Negative); SARS-CoV-2 Xpert Express NEGATIVE (NEGATIVE)
[2022-01-23 13:38] LABS: Appearance CLEAR (CLEAR); Bilirubin NEGATIVE (NEGATIVE); Dipstick done @ ? MAIN LAB; Glucose NEGATIVE (NEGATIVE); Ketones NEGATIVE (NEGATIVE); Mucus SLIGHT /HPF (NEGATIVE); Nitrite NEGATIVE (NEGATIVE); Ph 5.5 (5-6); Protein,Urine Dip NEGATIVE (Negative); RBC NEGATIVE Ery/ul (0-5); Urobilinogen 1 mg/dL (0-1)
[2022-01-23 13:39] LABS: Urine Cultured Indicated? NO
[2022-01-23] MEDS ORDERED: PIPERACILLIN/TAZOBACTAM 3.375 GM in Sodium Chloride 100ML MINI-BAG PLUS 100 ML IV ONE (13:39)
[2022-01-23] MEDS ORDERED: VANCOMYCIN 2 GRAM/400 ML BAG 2 GM/400 ML PIGGYBACK IV ONE ×2 (13:39→15:42)
[2022-01-23] MEDS ORDERED: PIPERACILLIN/TAZOBACTAM IV ONE ×2 (13:51→13:52)
[2022-01-23] MEDS ORDERED: Sodium Chloride 100ML MINI-BAG PLUS 100 ML IV ONE (13:52)
[2022-01-23] MEDS ORDERED: VANCOMYCIN 1 GRAM/200 ML BAG 1 GM/200 ML PIGGYBACK IV ONE ×2 (14:32→14:33)
[2022-01-23] MEDS ORDERED: Zofran 4 MG/2 ML VIAL IV PRN (15:42)
[2022-01-23] MEDS ORDERED: FLUZONE HIGH-DOSE QUAD 2022-23 IM ONE (15:47)
[2022-01-23] MEDS: PIPERACILLIN/TAZOBACTAM 3.375 GM in Sodium Chloride 100ML MINI-BAG PLUS 100 ML IV SCH ×2 (17:25→23:36)
[2022-01-24] MEDS: VANCOMYCIN 1 GRAM/200 ML BAG 1 GM/200 ML PIGGYBACK IV SCH ×3 (00:09→21:03)
[2022-01-24] MEDS: PIPERACILLIN/TAZOBACTAM 3.375 GM in Sodium Chloride 100ML MINI-BAG PLUS 100 ML IV SCH ×4 (04:59→23:06)
[2022-01-24 05:12] LABS: Absolute Neutrophil Ct (ANC) 4.76 x10^3/uL (1.4-6.9); Basophil (Absolute #) 0.02 x10^3/uL (0-0.4); Eosinophil % 1.3 % (0.00-5.0); Eosinophil (Absolute #) 0.09 x10^3/uL (0-0.5); Hematocrit 35.7 % (42-50); Hemoglobin 11.6 g/dL (12.5-18.0); Lymphocyte (Absolute #) 1.46 x10^3/uL (1.0-4.6); Lymphocytes % 20.3 % (24.0-44.0); Mean Cell Volume 105.3 fL (78-100); Mean Corpuscular Hemoglobin 34.2 pg (26-32); Mean Corpuscular Hgb Concent. 32.5 g/dL (32-36); Mean Platelet Volume 11.4 fL (7.5-11.0); Monocyte (Absolute #) 0.82 x10^3/uL (0.0-1.3); Monocytes % 11.4 % (0.0-12.0); Platelet Count 229 x10^3/uL (150-450); Red Blood Count 3.39 x10^6/uL (4.1-5.6); Red Cell Distribution Width 13.7 % (11.5-14.0); White Blood Count 7.2 x10^3/uL (4.0-10.5)
[2022-01-24 05:38] LABS: ALKALINE PHOSPHATASE 62 U/L (38-126); ANION GAP 7.3 MEQ/L (5-15); BLOOD UREA NITROGEN 13 mg/dL (9-20); CHLORIDE 105 mmol/L (98-107); Calcium 7.7 mg/dL (8.4-10.2); Carbon Dioxide 29 mmol/L (22-30); Creatinine 1 0.84 mg/dL (0.66-1.25); EST GLOMERULAR FILTRATION RATE > 60.0 ML/MIN; Glucose 113 mg/dL (74-106); Potassium 3.6 mmol/L (3.5-5.1); SGOT/AST 17 U/L (17-59); SGPT/ALT 13 U/L (0-50); SODIUM 138 mmol/L (137-145); Total Protein 5.5 g/dL (6.3-8.2)
[2022-01-24] MEDS: TORAdol 30 mg Injection IV PRN ×2 (08:10→23:40)
--- NOTE | 2022-01-24 08:30 | PCM.HP ---
History of Present Illness - Chief Complaint Chief Complaint: cellulitis History of Present Illness: is a 76 year old male pt of Janet Bautista with PMHx OA, DJD, hx prostate ca, hernia repair, and back surgery who was admitted through ER with cellulitis of the R foot. He had been having toe and foot pain for the past 2 weeks; seen in ER and dx with gout 2 wks ago. Colchecine without much improvement. The pain returned; denied N/V/diaphoresis. Was worse with weight bearing, better with rest. In ER, XR foot nonacute. U/s neg for DVT of RLE. Was started on zosyn and vancomycin and this morning the foot is much better, less red, less swollen, and less painful. Pt has been ronnie po well. Not a smoker. Drinks EtOH, hard liquor, 3 mixed drinks every other night. no drug hx. Thinks he's had a heart murmur since , but doesn't remember having had an echo. - Review of Systems Constitutional: Fever (slight, subjective) Musculoskeletal: Other (foot pain) Skin: Cellulitis Psychological: Other (alcohol use ) All Other Systems: Reviewed and Negative Medications & Allergies Home Medications: Home Medication List Lisinopril 10 mg [Zestril 10 MG] 10 mg PO DAILY 07/26/16 [History Confirmed 01/23/22] Allergies/Adverse Reactions: Allergies Allergy/AdvReac Type Severity Reaction Status Date / Time No Known Drug Allergies Allergy Verified 01/23/22 15:46 - Past Medical History Past Medical History: Yes Neurological History: No Pertinent History ENT History: No Pertinent History Cardiac History: Hypertension Respiratory History: No Pertinent History Endocrine Medical History: No Pertinent History Musculoskelatal History: Degenerative Disk Disease, Osteoarthritis GI Medical History: Hernia History: Other Pyscho-Social History: No Pertinent History Male Reproductive Disorders: Prostate Cancer, Prostate Problems Comment: prostate cancer,colon polyps removed 3,hernia times 4 repaired,back surgery - Past Surgical History Past Surgical History: Yes Neuro Surgical History: No Pertinent History Cardiac History: No Pertinent History Respiratory Surgery: No Pertinent History GI Surgical History: Hernia Repair Genitourinary Surgical Hx: No Pertinent History Musculskeletal Surgical Hx: Orthopedic Surgery Male Surgical History: Prostate Surgery Other Surgical History: colonoscopy polyps removed,back,hernia times 4, 2 hip replacements, back surgery - Social History Smoking Status: Never smoker Exposure to second hand smoke: No Alcohol: Daily Drug Use: none - Physical Exam Vital Signs: Vital Signs - 24 hr Temp Pulse Resp BP Pulse Ox 01/24/22 08:00 97.5 F 58 L 16 128/62 97 01/24/22 04:00 97.9 F 51 L 18 101/53 96 01/23/22 23:57 97.9 F 60 16 128/68 98 01/23/22 20:00 97.8 F 65 18 95/54 96 01/23/22 15:51 97.7 F 54 L 16 125/59 99 01/23/22 15:42 99 01/23/22 14:05 54 L 14 165/84 99 01/23/22 13:53 96 01/23/22 13:45 56 L 18 135/77 97 01/23/22 12:42 68 16 149/87 99 01/23/22 11:51 99 01/23/22 11:03 98.5 F 67 18 172/85 96 General Appearance: no apparent distress, alert Neurologic Exam: oriented x 3, cooperative, normal mood/affect Eye Exam: eyes nml inspection Ears, Nose, Throat Exam: pharynx normal, moist mucous membranes Neck Exam: normal inspection, non-tender, No lymphadenopathy, No thyromegaly Respiratory Exam: normal breath sounds, lungs clear, No crackles/rales, No rhonchi, No wheezing Cardiovascular Exam: regular rate/rhythm, normal heart sounds, No murmur Gastrointestinal/Abdomen Exam: soft, normal bowel sounds, No tenderness, No distention, No mass, No guarding, No rebound Back Exam: normal inspection, No CVA tenderness, No rash Extremity Exam: pedal edema (2+ pitting edema R foot; trace pitting edema to proximal to the knee on the R.), other (foot is nttp. there is an enlargement medial great toe which pt says is longstanding.) Skin Exam: warm, dry, other (mild erythema dorsum of R foot.), No rash Wound Assessment: Skin/Wound Assessment Wound/Incision Assessment Start: 01/23/22 20:00 Text: Status: Active Freq: Q6H Protocol: Document 01/24/22 02:00 TC (Rec: 01/24/22 02:34 TC [id number]) Wound Photo Photo Taken No Results - Labs Lab/Micro Results: Lab Results-Last 24 Hours 01/23/22 01/23/22 01/23/22 Range/Units 11:14 11:50 11:53 WBC 9.3 (4.0-10.5) x10^3/uL RBC 3.84 L (4.1-5.6) x10^6/uL Hgb 13.1 (12.5-18.0) g/dL Hct 39.6 L (42-50) % MCV 103.1 H (78-100) fL MCH 34.1 H (26-32) pg MCHC 33.1 (32-36) g/dL RDW 13.6 (11.5-14.0) % Plt Count 248 (150-450) x10^3/uL MPV 10.8 (7.5-11.0) fL Gran % 71.2 H (36.0-66.0) % Immature Gran % (Auto) 1.1 H (0.00-0.4) % Nucleat RBC Rel Count 0.0 (0.00-0.1) % Eos # (Auto) 0.06 (0-0.5) x10^3/uL Immature Gran # (Auto) 0.10 H (0.00-0.03) x10^3u/L Absolute Lymphs (auto) 1.47 (1.0-4.6) x10^3/uL Absolute Monos (auto) 1.04 (0.0-1.3) x10^3/uL Absolute Nucleated RBC 0.00 (0.00-0.01) x10^3u/L Lymphocytes % 15.7 L (24.0-44.0) % Monocytes % 11.1 (0.0-12.0) % Eosinophils % 0.6 (0.00-5.0) % Basophils % 0.3 (0.0-0.4) % Absolute Granulocytes 6.64 (1.4-6.9) x10^3/uL Basophils # 0.03 (0-0.4) x10^3/uL Sodium 138 (137-145) mmol/L Potassium 3.9 (3.5-5.1) mmol/L Chloride 104 (98-107) mmol/L Carbon Dioxide 30 (22-30) mmol/L Anion Gap 7.9 (5-15) MEQ/L BUN 10 (9-20) mg/dL Creatinine 0.80 (0.66-1.25) mg/dL Estimated GFR > 60.0 ML/MIN Glucose 111 H (74-106) mg/dL Lactic Acid 0.8 (0.4-2.0) Calcium 8.6 (8.4-10.2) mg/dL Total Bilirubin 0.90 (0.2-1.3) mg/dL AST 22 (17-59) U/L ALT 17 (0-50) U/L Alkaline Phosphatase 80 (38-126) U/L Serum Total Protein 6.5 (6.3-8.2) g/dL Albumin 3.9 (3.5-5.0) g/dL Procalcitonin (0.030-0.080) ng/mL Urinalys Dipstick Clnc Urine Color (YELLOW) Urine Appearance (CLEAR) Urine pH (5-6) Ur Specific [place] (1.005-1.025) POC Urine Protein Conf (Negative) Urine Ketones (NEGATIVE) Urine Nitrite (NEGATIVE) Urine Bilirubin (NEGATIVE) Urine Urobilinogen (0-1) mg/dL Urine Leukocytes (NEGATIVE) Urine WBC (Auto) (0-5) /HPF Urine RBC (Auto) (0-2) /HPF U Epithel Cells (Auto) (FEW) /HPF Urine Bacteria (Auto) (NEGATIVE) /HPF Urine RBC (0-5) Marciano/ul Urine Mucus (Auto) (NEGATIVE) /HPF Ur Culture Indicated? Urine Glucose (NEGATIVE) mg/dL Influenza Type A Ag (NEGATIVE) Influenza Type B Ag (NEGATIVE) RSV (PCR) (Negative) SARS-CoV-2 (PCR) (NEGATIVE) 01/23/22 01/23/22 01/23/22 Range/Units 12:34 Unknown Unknown WBC (4.0-10.5) x10^3/uL RBC (4.1-5.6) x10^6/uL Hgb (12.5-18.0) g/dL Hct (42-50) % MCV (78-100) fL MCH (26-32) pg MCHC (32-36) g/dL RDW (11.5-14.0) % Plt Count (150-450) x10^3/uL MPV (7.5-11.0) fL Gran % (36.0-66.0) % Immature Gran % (Auto) (0.00-0.4) % Nucleat RBC Rel Count (0.00-0.1) % Eos # (Auto) (0-0.5) x10^3/uL Immature Gran # (Auto) (0.00-0.03) x10^3u/L Absolute Lymphs (auto) (1.0-4.6) x10^3/uL Absolute Monos (auto) (0.0-1.3) x10^3/uL Absolute Nucleated RBC (0.00-0.01) x10^3u/L Lymphocytes % (24.0-44.0) % Monocytes % (0.0-12.0) % Eosinophils % (0.00-5.0) % Basophils % (0.0-0.4) % Absolute Granulocytes (1.4-6.9) x10^3/uL Basophils # (0-0.4) x10^3/uL Sodium (137-145) mmol/L Potassium (3.5-5.1) mmol/L Chloride (98-107) mmol/L Carbon Dioxide (22-30) mmol/L Anion Gap (5-15) MEQ/L BUN (9-20) mg/dL Creatinine (0.66-1.25) mg/dL Estimated GFR ML/MIN Glucose (74-106) mg/dL Lactic Acid (0.4-2.0) Calcium (8.4-10.2) mg/dL Total Bilirubin (0.2-1.3) mg/dL AST (17-59) U/L ALT (0-50) U/L Alkaline Phosphatase (38-126) U/L Serum Total Protein (6.3-8.2) g/dL Albumin (3.5-5.0) g/dL Procalcitonin 0.046 (0.030-0.080) ng/mL Urinalys Dipstick Clnc MAIN LAB Urine Color YELLOW (YELLOW) Urine Appearance CLEAR (CLEAR) Urine pH 5.5 (5-6) Ur Specific [place] 1.020 (1.005-1.025) POC Urine Protein Conf NEGATIVE (Negative) Urine Ketones NEGATIVE (NEGATIVE) Urine Nitrite NEGATIVE (NEGATIVE) Urine Bilirubin NEGATIVE (NEGATIVE) Urine Urobilinogen 1 (0-1) mg/dL Urine Leukocytes NEGATIVE (NEGATIVE) Urine WBC (Auto) 3-5 (0-5) /HPF Urine RBC (Auto) NONE (0-2) /HPF U Epithel Cells (Auto) NONE (FEW) /HPF Urine Bacteria (Auto) NONE (NEGATIVE) /HPF Urine RBC NEGATIVE (0-5) Marciano/ul Urine Mucus (Auto) SLIGHT (NEGATIVE) /HPF Ur Culture Indicated? NO Urine Glucose NEGATIVE (NEGATIVE) mg/dL Influenza Type A Ag NEGATIVE (NEGATIVE) Influenza Type B Ag NEGATIVE (NEGATIVE) RSV (PCR) NEGATIVE (Negative) SARS-CoV-2 (PCR) NEGATIVE (NEGATIVE) 01/24/22 01/24/22 Range/Units 05:08 05:08 WBC 7.2 (4.0-10.5) x10^3/uL RBC 3.39 L (4.1-5.6) x10^6/uL Hgb 11.6 L (12.5-18.0) g/dL Hct 35.7 L (42-50) % MCV 105.3 H (78-100) fL MCH 34.2 H (26-32) pg MCHC 32.5 (32-36) g/dL RDW 13.7 (11.5-14.0) % Plt Count 229 (150-450) x10^3/uL MPV 11.4 H (7.5-11.0) fL Gran % 66.0 (36.0-66.0) % Immature Gran % (Auto) 0.7 H (0.00-0.4) % Nucleat RBC Rel Count 0.0 (0.00-0.1) % Eos # (Auto) 0.09 (0-0.5) x10^3/uL Immature Gran # (Auto) 0.05 H (0.00-0.03) x10^3u/L Absolute Lymphs (auto) 1.46 (1.0-4.6) x10^3/uL Absolute Monos (auto) 0.82 (0.0-1.3) x10^3/uL Absolute Nucleated RBC 0.00 (0.00-0.01) x10^3u/L Lymphocytes % 20.3 L (24.0-44.0) % Monocytes % 11.4 (0.0-12.0) % Eosinophils % 1.3 (0.00-5.0) % Basophils % 0.3 (0.0-0.4) % Absolute Granulocytes 4.76 (1.4-6.9) x10^3/uL Basophils # 0.02 (0-0.4) x10^3/uL Sodium 138 (137-145) mmol/L Potassium 3.6 (3.5-5.1) mmol/L Chloride 105 (98-107) mmol/L Carbon Dioxide 29 (22-30) mmol/L Anion Gap 7.3 (5-15) MEQ/L BUN 13 (9-20) mg/dL Creatinine 0.84 (0.66-1.25) mg/dL Estimated GFR > 60.0 ML/MIN Glucose 113 H (74-106) mg/dL Lactic Acid (0.4-2.0) Calcium 7.7 L (8.4-10.2) mg/dL Total Bilirubin 0.70 (0.2-1.3) mg/dL AST 17 (17-59) U/L ALT 13 (0-50) U/L Alkaline Phosphatase 62 (38-126) U/L Serum Total Protein 5.5 L (6.3-8.2) g/dL Albumin 3.0 L (3.5-5.0) g/dL Procalcitonin (0.030-0.080) ng/mL Urinalys Dipstick Clnc Urine Color (YELLOW) Urine Appearance (CLEAR) Urine pH (5-6) Ur Specific [place] (1.005-1.025) POC Urine Protein Conf (Negative) Urine Ketones (NEGATIVE) Urine Nitrite (NEGATIVE) Urine Bilirubin (NEGATIVE) Urine Urobilinogen (0-1) mg/dL Urine Leukocytes (NEGATIVE) Urine WBC (Auto) (0-5) /HPF Urine RBC (Auto) (0-2) /HPF U Epithel Cells (Auto) (FEW) /HPF Urine Bacteria (Auto) (NEGATIVE) /HPF Urine RBC (0-5) Marciano/ul Urine Mucus (Auto) (NEGATIVE) /HPF Ur Culture Indicated? Urine Glucose (NEGATIVE) mg/dL Influenza Type A Ag (NEGATIVE) Influenza Type B Ag (NEGATIVE) RSV (PCR) (Negative) SARS-CoV-2 (PCR) (NEGATIVE) - Radiology Impressions Radiology Exams & Impressions: Radiology Procedures Category Date Time Status ECHO W/2D AND DOPPLER [US] Routine Exams 01/25/22 Ordered FOOT (MINIMUM 3 VIEWS) Stat Exams 01/23/22 11:16 Completed VENOUS UNILAT/LIMITED EXTREMIT [US] Stat Exams 01/23/22 11:18 Completed Assessment/Plan (1) Cellulitis Current Visit: Yes Status: Acute Qualifiers: Site of cellulitis: extremity Site of cellulitis of extremity: lower extremity Laterality: right Qualified Code(s): L03.115 - Cellulitis of right lower limb Assessment & Plan: On Zosyn and vancomycin day #2, doing great. Would expect him to stay perhaps 2 more days then home on po antibiotics. Code(s): L03.90 - CELLULITIS, UNSPECIFIED (2) Leg edema, right Current Visit: Yes Status: Acute Assessment & Plan: rechecking uric acid. has improved but still marked. Code(s): R60.0 - LOCALIZED EDEMA (3) Hypocalcemia Current Visit: Yes Status: Acute Assessment & Plan: corrected, is 8.5. Code(s): E83.51 - HYPOCALCEMIA (4) Gait abnormality Current Visit: Yes Status: Chronic Assessment & Plan: using a cane, unsure the chronicity. Code(s): R26.9 - UNSPECIFIED ABNORMALITIES OF GAIT AND MOBILITY
[2022-01-24] MEDS ORDERED: FLUZONE HIGH-DOSE QUAD 2022-23 IM ONE ×2 (10:00→23:22)
[2022-01-25] MEDS: PIPERACILLIN/TAZOBACTAM 3.375 GM in Sodium Chloride 100ML MINI-BAG PLUS 100 ML IV SCH ×4 (05:24→23:42)
[2022-01-25 05:38] LABS: Absolute Neutrophil Ct (ANC) 4.31 x10^3/uL (1.4-6.9); Basophil (Absolute #) 0.03 x10^3/uL (0-0.4); Eosinophil % 2.4 % (0.00-5.0); Eosinophil (Absolute #) 0.17 x10^3/uL (0-0.5); Hematocrit 35.6 % (42-50); Hemoglobin 11.5 g/dL (12.5-18.0); Lymphocyte (Absolute #) 1.73 x10^3/uL (1.0-4.6); Lymphocytes % 24.5 % (24.0-44.0); Mean Cell Volume 105.6 fL (78-100); Mean Corpuscular Hemoglobin 34.1 pg (26-32); Mean Corpuscular Hgb Concent. 32.3 g/dL (32-36); Mean Platelet Volume 11.4 fL (7.5-11.0); Monocyte (Absolute #) 0.76 x10^3/uL (0.0-1.3); Monocytes % 10.7 % (0.0-12.0); Platelet Count 226 x10^3/uL (150-450); Red Blood Count 3.37 x10^6/uL (4.1-5.6); Red Cell Distribution Width 13.6 % (11.5-14.0); White Blood Count 7.1 x10^3/uL (4.0-10.5)
[2022-01-25 06:08] LABS: ANION GAP 7.4 MEQ/L (5-15); BLOOD UREA NITROGEN 15 mg/dL (9-20); CHLORIDE 105 mmol/L (98-107); Carbon Dioxide 30 mmol/L (22-30); Creatinine 1 0.89 mg/dL (0.66-1.25); EST GLOMERULAR FILTRATION RATE > 60.0 ML/MIN; Glucose 116 mg/dL (74-106); Potassium 3.7 mmol/L (3.5-5.1); SODIUM 138 mmol/L (137-145)
[2022-01-25] MEDS: VANCOMYCIN 1 GRAM/200 ML BAG 1 GM/200 ML PIGGYBACK IV SCH ×2 (07:35→10:08)
--- NOTE | 2022-01-25 09:00 | PCM.NOTE ---
Date and Time: 01/25/22854 Subjective Assessment: Was up walking in [place] yesterday with PT. Last toradol was last night and this morning he is having no pain in the foot. Persistent edema. Silas po well. - Review of Systems Constitutional: No Fever Abdominal/Gastrointestinal: No Vomiting Objective Exam General Appearance: no apparent distress, alert Neurologic Exam: oriented x 3, cooperative Skin Exam: warm, dry, No rash Eye Exam: eyes nml inspection Neck Exam: normal inspection Respiratory Exam: normal breath sounds, lungs clear, No crackles/rales, No rhonchi, No wheezing Cardiovascular Exam: regular rate/rhythm, normal heart sounds, No murmur Extremity Exam: other (R foot with 1+ edema. very mild erythema on dorsum. R great toe misshapen (chronic per pt)) OBJECTIVE DATA Vital Signs: Vital Signs - 24 hr Temp Pulse Resp BP Pulse Ox 01/25/22 07:11 97.1 F 61 16 147/81 94 L 01/25/22 04:00 97.9 F 80 20 144/85 96 01/24/22 23:31 98.0 F 73 18 164/79 98 01/24/22 20:00 97.8 F 71 20 140/69 96 01/24/22 16:00 97.1 F 63 16 124/68 98 01/24/22 12:00 97.1 F 71 16 117/60 98 Pain Assessment - Last Documented Pain Intensity 0 Pain Scale Used 0-10 Pain Scale Intake and Output: Intake & Output 01/22/22 01/23/22 01/24/22 01/25/22 11:59 11:59 11:59 11:59 Intake Total 1889 2902 Output Total 675 1200 Balance 1214 1702 Weight 105.5 kg 106.3 kg Lab Results: Lab Results-Last 24 Hours 01/24/22 01/25/22 01/25/22 Range/Units 05:08 04:45 04:45 WBC 7.1 (4.0-10.5) x10^3/uL RBC 3.37 L (4.1-5.6) x10^6/uL Hgb 11.5 L (12.5-18.0) g/dL Hct 35.6 L (42-50) % MCV 105.6 H (78-100) fL MCH 34.1 H (26-32) pg MCHC 32.3 (32-36) g/dL RDW 13.6 (11.5-14.0) % Plt Count 226 (150-450) x10^3/uL MPV 11.4 H (7.5-11.0) fL Gran % 61.0 (36.0-66.0) % Immature Gran % (Auto) 1.0 H (0.00-0.4) % Nucleat RBC Rel Count 0.0 (0.00-0.1) % Eos # (Auto) 0.17 (0-0.5) x10^3/uL Immature Gran # (Auto) 0.07 H (0.00-0.03) x10^3u/L Absolute Lymphs (auto) 1.73 (1.0-4.6) x10^3/uL Absolute Monos (auto) 0.76 (0.0-1.3) x10^3/uL Absolute Nucleated RBC 0.00 (0.00-0.01) x10^3u/L Lymphocytes % 24.5 (24.0-44.0) % Monocytes % 10.7 (0.0-12.0) % Eosinophils % 2.4 (0.00-5.0) % Basophils % 0.4 (0.0-0.4) % Absolute Granulocytes 4.31 (1.4-6.9) x10^3/uL Basophils # 0.03 (0-0.4) x10^3/uL Sodium 138 (137-145) mmol/L Potassium 3.7 (3.5-5.1) mmol/L Chloride 105 (98-107) mmol/L Carbon Dioxide 30 (22-30) mmol/L Anion Gap 7.4 (5-15) MEQ/L BUN 15 (9-20) mg/dL Creatinine 0.89 (0.66-1.25) mg/dL Estimated GFR > 60.0 ML/MIN Glucose 116 H (74-106) mg/dL Uric Acid 5.2 (3.5-7.2) mg/dL Calcium 8.0 L (8.4-10.2) mg/dL Radiology Exams: Radiology Procedures Category Date Time Status ECHO W/2D AND DOPPLER [US] Routine Exams 01/25/22 Ordered FOOT (MINIMUM 3 VIEWS) Stat Exams 01/23/22 11:16 Completed VENOUS UNILAT/LIMITED EXTREMIT [US] Stat Exams 01/23/22 11:18 Completed Assessment/Plan (1) Cellulitis Current Visit: Yes Status: Acute Qualifiers: Site of cellulitis: extremity Site of cellulitis of extremity: lower extremity Laterality: right Qualified Code(s): L03.115 - Cellulitis of right lower limb Assessment & Plan: Much improved, on day #3 zosyn and vancomycin. Would plan to send home tomorrow on po augmentin. Uric acid is nl, although he has a hx of gout. He does have a misshapen great toe, and I think would benefit from outpatient podiatry follow up at some point. Code(s): L03.90 - CELLULITIS, UNSPECIFIED (2) Leg edema, right Current Visit: Yes Status: Acute Assessment & Plan: improved. Code(s): R60.0 - LOCALIZED EDEMA (3) Hypocalcemia Current Visit: Yes Status: Resolved Assessment & Plan: When corrected for hypoalbuminemia, Ca is 8.0. Will check PTH and give TUMs. Code(s): E83.51 - HYPOCALCEMIA (4) Gait abnormality Current Visit: Yes Status: Chronic Assessment & Plan: Did well with walker and cane. Code(s): R26.9 - UNSPECIFIED ABNORMALITIES OF GAIT AND MOBILITY
[2022-01-25] MEDS ORDERED: TROUGH DRUG LEVELS IJ ONE (09:30)
[2022-01-25] MEDS: VANCOMYCIN 1.25 GM/250 ML BAG 1.25 GM/250 ML PIGGYBACK IV SCH (21:30)
[2022-01-26 06:03] LABS: Absolute Neutrophil Ct (ANC) 3.35 x10^3/uL (1.4-6.9); Basophil (Absolute #) 0.03 x10^3/uL (0-0.4); Eosinophil % 4.6 % (0.00-5.0); Eosinophil (Absolute #) 0.27 x10^3/uL (0-0.5); Hemoglobin 11.6 g/dL (12.5-18.0); Lymphocyte (Absolute #) 1.57 x10^3/uL (1.0-4.6); Lymphocytes % 26.8 % (24.0-44.0); Mean Cell Volume 103.2 fL (78-100); Mean Corpuscular Hemoglobin 34.2 pg (26-32); Mean Corpuscular Hgb Concent. 33.1 g/dL (32-36); Mean Platelet Volume 11.3 fL (7.5-11.0); Monocyte (Absolute #) 0.57 x10^3/uL (0.0-1.3); Monocytes % 9.7 % (0.0-12.0); Neutrophil % 57.4 % (36.0-66.0); Platelet Count 243 x10^3/uL (150-450); Red Blood Count 3.39 x10^6/uL (4.1-5.6); Red Cell Distribution Width 13.6 % (11.5-14.0); White Blood Count 5.9 x10^3/uL (4.0-10.5)
[2022-01-26] MEDS: PIPERACILLIN/TAZOBACTAM 3.375 GM in Sodium Chloride 100ML MINI-BAG PLUS 100 ML IV SCH (06:07)
[2022-01-26 06:40] LABS: ALKALINE PHOSPHATASE 60 U/L (38-126); ANION GAP 5.8 MEQ/L (5-15); BLOOD UREA NITROGEN 11 mg/dL (9-20); CHLORIDE 106 mmol/L (98-107); Calcium 7.8 mg/dL (8.4-10.2); Carbon Dioxide 30 mmol/L (22-30); Creatinine 1 0.83 mg/dL (0.66-1.25); EST GLOMERULAR FILTRATION RATE > 60.0 ML/MIN; Glucose 103 mg/dL (74-106); Potassium 3.9 mmol/L (3.5-5.1); SGOT/AST 17 U/L (17-59); SGPT/ALT 14 U/L (0-50); SODIUM 138 mmol/L (137-145); Total Protein 5.6 g/dL (6.3-8.2)
[2022-01-26] MEDS: VANCOMYCIN 1.25 GM/250 ML BAG 1.25 GM/250 ML PIGGYBACK IV SCH (08:04)
[2022-01-26 08:10] VITALS: BP 164/79; PULSE 57; O2SAT 94
--- NOTE | 2022-01-26 08:54 | PCM.DS ---
Discharge Summary Date of Admission: 01/24/22 08:25 Admitting Physician: JAYASHREE OSORIO Primary Care Provider: ADRIAN FLOWERS Allergies Allergies No Known Drug Allergies Allergy (Verified 01/23/22 15:46) Hospital Summary - Hospital Course Hospital Course: patient was admitted with lower extremity cellulitis, treated with vanc and zosyn, has had excellent improvement. he is ambulating and doesn't have much pain at all per his report this am - Vitals & Intake/Output Vital Signs: Vital Signs Temperature 97.1 F 01/26/22 08:00 Pulse Rate 57 L 01/26/22 08:00 Respiratory Rate 20 01/26/22 08:00 Blood Pressure 164/79 01/26/22 08:00 O2 Sat by Pulse Oximetry 94 L 01/26/22 08:00 Intake & Output: Intake & Output 01/23/22 01/24/22 01/25/22 01/26/22 11:59 11:59 11:59 11:59 Intake Total 1889 3142 2181 Output Total 675 1200 2400 Balance 1214 1942 -219 Weight 105.5 kg 106.3 kg - Lab Result Diagrams: 01/26/22 04:40 01/26/22 04:40 Lab Results-Last 24 Hrs: Lab Results-Last 24 Hours 01/25/22 01/26/22 01/26/22 Range/Units 09:49 04:40 04:40 WBC 5.9 (4.0-10.5) x10^3/uL RBC 3.39 L (4.1-5.6) x10^6/uL Hgb 11.6 L (12.5-18.0) g/dL Hct 35.0 L (42-50) % MCV 103.2 H (78-100) fL MCH 34.2 H (26-32) pg MCHC 33.1 (32-36) g/dL RDW 13.6 (11.5-14.0) % Plt Count 243 (150-450) x10^3/uL MPV 11.3 H (7.5-11.0) fL Gran % 57.4 (36.0-66.0) % Immature Gran % (Auto) 1.0 H (0.00-0.4) % Nucleat RBC Rel Count 0.0 (0.00-0.1) % Eos # (Auto) 0.27 (0-0.5) x10^3/uL Immature Gran # (Auto) 0.06 H (0.00-0.03) x10^3u/L Absolute Lymphs (auto) 1.57 (1.0-4.6) x10^3/uL Absolute Monos (auto) 0.57 (0.0-1.3) x10^3/uL Absolute Nucleated RBC 0.00 (0.00-0.01) x10^3u/L Lymphocytes % 26.8 (24.0-44.0) % Monocytes % 9.7 (0.0-12.0) % Eosinophils % 4.6 (0.00-5.0) % Basophils % 0.5 (0.0-0.4) % Absolute Granulocytes 3.35 (1.4-6.9) x10^3/uL Basophils # 0.03 (0-0.4) x10^3/uL Sodium 138 (137-145) mmol/L Potassium 3.9 (3.5-5.1) mmol/L Chloride 106 (98-107) mmol/L Carbon Dioxide 30 (22-30) mmol/L Anion Gap 5.8 (5-15) MEQ/L BUN 11 (9-20) mg/dL Creatinine 0.83 (0.66-1.25) mg/dL Estimated GFR > 60.0 ML/MIN Glucose 103 (74-106) mg/dL Calcium 7.8 L (8.4-10.2) mg/dL Total Bilirubin 0.30 (0.2-1.3) mg/dL AST 17 (17-59) U/L ALT 14 (0-50) U/L Alkaline Phosphatase 60 (38-126) U/L Serum Total Protein 5.6 L (6.3-8.2) g/dL Albumin 3.0 L (3.5-5.0) g/dL Vancomycin Trough 9.08 L (10-20) ug/mL Micro Results-Entire Visit: Microbiology 01/23/22 11:55 Blood Culture - Preliminary Blood NO GROWTH TO DATE 01/23/22 11:50 Blood Culture - Preliminary Blood NO GROWTH TO DATE - Radiology Exams Ordered Rad Exams-Entire Visit: Radiology Procedures Category Date Time Status ECHO W/2D AND DOPPLER [US] Routine Exams 01/25/22 09:38 Taken - Procedures and Test Procedures and Tests throughout Hospitalization: Therapy Orders & Screens 01/23/22 16:07 OT Screen per Nursing Assess ONCE Comment: Protocol Order Physician Instructions: Greater than 3 points order OT Admission Screening Reason For Exam: Triggered on Admission Diagnosis: cellulitis Open Wound/Cellutlitis/Pressure Ulcers: Yes Acute Fx/ORIF/Change in wt bearing status: Yes Severe MUSCULOSKELETAL pain: Yes ADL Dysfunction: No Acute CVA w/Hemiparesis/Hemiplegia: No Decreased Functional Mobility/Strength: Yes Sprain/Strain: No Acute Post-op Mobility Dysfunction: No Total Points: 16 PT Screen per Nursing Assess ONCE Comment: Protocol Order Physician Instructions: Greater than 3 points order PT Admission Screenin Reason For Exam: Triggered on Admission Diagnosis: cellulitis Open Wound/Cellutlitis/Pressure Ulcers: Yes Acute Fx/ORIF/Change in wt bearing status: Yes Severe MUSCULOSKELETAL pain: Yes ADL Dysfunction: No Acute CVA w/Hemiparesis/Hemiplegia: No Decreased Functional Mobility/Strength: Yes Sprain/Strain: No Acute Post-op Mobility Dysfunction: No Total Points: 16 01/24/22 08:31 PT Eval & Treat (MD Order) ONCE Reason for Eval:: gait abnormity Diagnosis: cellulitis 01/25/22 08:54 EKG ROUTINE Comment: Bradycardia Diagnosis: CELLULITIS, LEG EDEMA, GAIT ABNORMALITY Discharge Exam General Appearance: no apparent distress, alert Neurologic Exam: alert, oriented x 3 Respiratory Exam: normal breath sounds, lungs clear, No respiratory distress Cardiovascular Exam: regular rate/rhythm, normal heart sounds Gastrointestinal/Abdomen Exam: soft, No tenderness, No mass Extremity Exam: other (mild swelling of right foot, no obvious erythema or warmth on exam this am. dramatically improved from review of admission notes) Final Diagnosis/Problem List - Final Discharge Diagnosis/Problem (1) Cellulitis Current Visit: Yes Status: Acute Assessment & Plan: home on po augmentin. will see podiatry on outpatient followup Code(s): L03.90 - CELLULITIS, UNSPECIFIED (2) Leg edema, right Current Visit: Yes Status: Acute Code(s): R60.0 - LOCALIZED EDEMA - Discharge Disposition: Home, Self-Care Condition: Stable Prescriptions: New Amox Tr/Potass Clav. 500 mg [Augmentin 500-125 Tablet] 500 mg PO BID #20 tablet Continue Lisinopril 10 mg [Zestril 10 MG] 10 mg PO DAILY Instructions: Preventing Falls in Older Adults, Cellulitis (Skin Infection), Adult (DC) Follow up with: JESSICA LEI DPM [ACTIVE STAFF] - JAYASHREE OSORIO [ACTIVE STAFF] - 1 Week
--- NOTE | 2022-01-26 15:38 | ECHO ---
Transthoracic echocardiographic examination and color Doppler was done on 01/25/2022. INDICATION: Heart murmur. IMPRESSION: 1) NO REGIONAL WALL MOTION ABNORMALITY. ESTIMATED GLOBAL LEFT VENTRICULAR EJECTION FRACTION OF 60%. 2) SEVERE CALCIFIC AORTIC STENOSIS WITH PEAK TRANSAORTIC GRADIENT OF 86 MM OF MERCURY AND A MEAN GRADIENT OF 62 MM OF MERCURY WITH A VR RATIO OF 0.23. 3) TRACE MITRAL REGURGITATION. 4) LEFT VENTRICLE DIASTOLIC DYSFUNCTION. 5) MILD TRICUSPID REGURGITATION WITH A RIGHT VENTRICULAR SYSTOLIC PRESSURE OF 52 MM OF MERCURY. 6) TRACE PERICARDIAL EFFUSION. The left ventricle is visualized and demonstrated adequate motion of all the segments. Estimated global left ventricular ejection fraction 60%. There is concentric left ventricular hypertrophy. The mitral valve is seen and this opens adequately. There is trace mitral regurgitation. Left atrium is normal. The tissue Doppler study of the lateral mitral annulus suggested of diastolic dysfunction. The aortic valve is heavily calcified with limited opening. The peak transaortic gradient is 86 mm of Mercury with a mean gradient of 62 mm of Mercury. The VR ratio is 0.23 and this is suggestive of severe aortic stenosis. The right side chambers are normal. There is mild tricuspid regurgitation with the right ventricular systolic pressure of 52 mm of Mercury suggestive of moderate pulmonary hypertension.
[2022-01-27] MEDS ORDERED: TROUGH DRUG LEVELS IJ ONE (09:30)
== END 2022-01-26 11:10 | disposition home or self-care (01) | DRG 603 ==
LOC: ED 10:50 → MED SURG 15:32 → OBSVTOIN 01-24 08:25
PROVIDERS: ADMIT Family Medicine; ATTEND Family Medicine
DX: L03.115 Cellulitis of right lower limb (principal); R60.0 Localized edema; I10 Essential (primary) hypertension; E83.51 Hypocalcemia; R26.9 Unspecified abnormalities of gait and mobility; R00.1 Bradycardia, unspecified; Z85.46 Personal history of malignant neoplasm of prostate; Z79.899 Other long term (current) drug therapy; Z20.828 Contact with and (suspected) exposure to other viral communicable diseases
CPT/HCPCS: 0241U; 36000; 36415; 73630; 80048; 80053; 80202; 81015; 83605; 83970; 84145; 84550; 85025; 87040; 93005; 93041; 93268; 93306; 93971; 94760; 96365; 96367; 96374; 97161; 99285; G0008; G0378; 90662; J1885; J3370

== ENCOUNTER 2022-01-31 10:19 | Inpatient (IN) | payer MEDICARE ==
[2022-01-31 12:22] LABS: Basophil (Absolute #) 0.02 x10^3/uL (0-0.4); Eosinophil % 0.9 % (0.00-5.0); Eosinophil (Absolute #) 0.08 x10^3/uL (0-0.5); Hematocrit 35.9 % (42-50); Hemoglobin 12.1 g/dL (12.5-18.0); Lymphocyte (Absolute #) 1.08 x10^3/uL (1.0-4.6); Lymphocytes % 11.9 % (24.0-44.0); Mean Cell Volume 102.3 fL (78-100); Mean Corpuscular Hemoglobin 34.5 pg (26-32); Mean Corpuscular Hgb Concent. 33.7 g/dL (32-36); Mean Platelet Volume 11.3 fL (7.5-11.0); Monocyte (Absolute #) 0.87 x10^3/uL (0.0-1.3); Monocytes % 9.6 % (0.0-12.0); Platelet Count 248 x10^3/uL (150-450); Red Blood Count 3.51 x10^6/uL (4.1-5.6); Red Cell Distribution Width 13.1 % (11.5-14.0); White Blood Count 9.1 x10^3/uL (4.0-10.5)
[2022-01-31 12:56] LABS: ALBUMIN 3.9 g/dL (3.5-5.0); ALKALINE PHOSPHATASE 81 U/L (38-126); ANION GAP 10.4 MEQ/L (5-15); BLOOD UREA NITROGEN 11 mg/dL (9-20); CHLORIDE 101 mmol/L (98-107); Calcium 8.6 mg/dL (8.4-10.2); Carbon Dioxide 27 mmol/L (22-30); Creatinine 1 0.73 mg/dL (0.66-1.25); EST GLOMERULAR FILTRATION RATE > 60.0 ML/MIN; Glucose 102 mg/dL (74-106); NT PRO BNP 4090 pg/mL (0-1800); Potassium 3.9 mmol/L (3.5-5.1); SGOT/AST 20 U/L (17-59); SGPT/ALT 12 U/L (0-50); SODIUM 135 mmol/L (137-145); Total Protein 6.7 g/dL (6.3-8.2)
--- NOTE | 2022-01-31 13:05 | ERPHSYRPT ---
- History of Present Illness Source: patient Exam Limitations: no limitations Patient Subjective Stated Complaint: C/O swelling to RLE. Patient states he had cellulitis on 01/23/22 and was admitted to the hospital. Patient states he was discharged on with oral antibiotics for cellulitis. Edema returned yesterdayl. Triage Nursing Assessment: Patient brought back to ED in a w/c. He is alert and oriented. Pitting edema noted to RLE. RLE is tight, red, warm to touch. Pedal pulse present and strong. Physician History: 73 yo wm released from [facility] on 01/25/22 for RLE cellulitis presents w increasing RLE edema/erythema/pain. Pain worse w weight bearing but states that it is currently a 10. He denies chest pain/dyspnea/fever/injury/N/V/D. States that edema was improved upon discharge but much worse over the last 2-3 days. Method of Injury: unknown Occurred: other (10 days) Quality: constant Severity of Pain-Max: severe Severity of Pain-Current: severe Lower Extremities Pain: foot: right, ankle: right Modifying Factors: Improves With: movement Associated Symptoms: unable to bear weight Allergies/Adverse Reactions: No Known Drug Allergies Allergy (Verified 01/31/22 11:10) Home Medications: Lisinopril 10 mg [Zestril 10 MG] 10 mg PO DAILY 07/26/16 [History] Hx Tetanus, Diphtheria Vaccination/Date Given: Yes Hx Influenza Vaccination/Date Given: Yes Hx Pneumococcal Vaccination/Date Given: Yes Immunizations Up to Date: Yes Travel Risk - International Travel Have you traveled outside of the country in past 3 weeks: No - Coronavirus Screening Are you exhibiting any of the following symptoms?: No Close contact with a COVID-19 positive Pt in past 14-21 Days: No - Vaccine Status Have you recieved a Covid-19 vaccination: Yes 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 - Review of Systems Constitutional: No Symptoms Eyes: No Symptoms Ears, Nose, & Throat: No Symptoms Respiratory: No Symptoms Cardiac: No Symptoms Abdominal/Gastrointestinal: No Symptoms Genitourinary Symptoms: No Symptoms Musculoskeletal: No Symptoms, Arthralgias Skin: No Symptoms, Cellulitis Neurological: No Symptoms Psychological: No Symptoms Endocrine: No Symptoms Hematologic/Lymphatic: No Symptoms Immunological/Allergic: No Symptoms - Past Medical History Pertinent Past Medical History: Yes Neurological History: No Pertinent History ENT History: No Pertinent History Cardiac History: Hypertension Respiratory History: No Pertinent History Endocrine Medical History: No Pertinent History Musculoskeletal History: Degenerative Disk Disease, Osteoarthritis GI Medical History: Hernia History: Other Psycho-Social History: No Pertinent History Male Reproductive Disorders: Prostate Cancer, Prostate Problems Other Medical History: prostate cancer, RLE cellulitis - Past Surgical History Past Surgical History: Yes Neuro Surgical History: No Pertinent History Cardiac: No Pertinent History Respiratory: No Pertinent History Gastrointestinal: Hernia Repair Genitourinary: No Pertinent History Musculoskeletal: Orthopedic Surgery Male Surgical History: Prostate Surgery Other Surgical History: colonoscopy polyps removed, back, 2 hip replacements, back surgery - Social History Smoking Status: Never smoker Exposure to second hand smoke: No Drug Use: none Patient Lives Alone: No Significant Family History: no pertinent family hx - Nursing Vital Signs Nursing Vital Signs: Initial Vital Signs Temperature 98.1 F 01/31/22 11:11 Pulse Rate 71 01/31/22 11:11 Respiratory Rate 17 01/31/22 11:11 Blood Pressure 145/93 01/31/22 11:11 O2 Sat by Pulse Oximetry 98 01/31/22 11:11 Pain Scale Pain Intensity 0 Hypertyensive - Physical Exam General Appearance: no apparent distress Eyes, Ears, Nose, Throat Exam: normal ENT inspection, TMs normal, pharynx normal, moist mucous membranes Neck Exam: normal inspection, non-tender, supple, full range of motion, No Brudzinski, No Kernig's, No meningismus, No lymphadenopathy (R) Cardiovascular/Respiratory Exam: normal breath sounds, regular rate/rhythm, murmur (3/6 JUAN) Gastrointestinal/Abdominal Exam: non-tender, soft, no organomegaly Back Exam: normal inspection, normal range of motion, No CVA tenderness Hips Exam: bilateral: non-tender, normal inspection, normal range of motion, no evidence of injury Ankle Exam: right ankle: swelling (R ankle/R foot edema, erythema, and TTP/Good pedal pulse, distal sensation, and capillary return) Neuro/Tendon Exam: normal sensation, normal motor functions, normal tendon functions, responds to pain, no evidence tendon injury, No motor deficit, No sensory deficit Mental Status Exam: alert, oriented x 3, cooperative Skin Exam: warm, dry SpO2 Interpretation: normal SpO2: 98 O2 Delivery: Room Air - Course Nursing assessment & vital signs reviewed: Yes EKG Interpreted by Me: RATE (NSR/Rate65/Prolonged QT-QTc/No acute ST segment changes) - Radiology Exams Chest X-ray Interpretation: Discussed w/ radiologist (Nothing acute) - Radiology Ultrasound Exam Venous Lower Extremity Ultrasound: discussed w/radiologist (No DVT) Ordered Tests: Active Orders 24 hr Category Date Time Status Bedrest with BRP/BSC ROUTINE Activity 01/31/22 14:50 Ordered Code Status Order ROUTINE Care 01/31/22 14:49 Ordered EKG-ER Only STAT Care 01/31/22 13:09 Active IV Care Q6H Care 01/31/22 14:49 Ordered IV Insertion STAT Care 01/31/22 11:[address] in Observation ROUTINE Care 01/31/22 14:49 Ordered Vital Signs Q4H Care 01/31/22 14:49 Ordered Heart-Healthy Diet Diet 01/31/22 Dinner Ordered CHEST 1 VIEW (PORTABLE) Stat Exams 01/31/22 13:09 Completed FOOT (MINIMUM 3 VIEWS) Stat Exams 01/31/22 12:24 Completed VENOUS UNILAT/LIMITED EXTREMIT [US] Stat Exams 01/31/22 11:55 Completed BLOOD CULTURE Stat Lab 01/31/22 Ordered CBC W DIFF AM.LAB Lab 02/01/22 04:00 Ordered CBC W DIFF Stat Lab 01/31/22 12:12 Completed CMP AM.LAB Lab 02/01/22 04:00 Ordered CMP Stat Lab 01/31/22 12:12 Completed Lactic Acid Stat Lab 01/31/22 12:10 Completed NT PRO BNP Stat Lab 01/31/22 12:12 Completed TROPONIN Q4H Lab 01/31/22 12:12 Completed TROPONIN Q4H Lab 01/31/22 16:00 Ordered TROPONIN Q4H Lab 01/31/22 20:00 Ordered Uric Acid Stat Lab 01/31/22 12:12 Completed Transfer Order Routine Transfer 01/31/22 Ordered Medication Summary Generic Name Dose Route Start Last Admin Trade Name Freq PRN Reason Stop Dose Admin Enoxaparin Sodium 40 mg 02/01/22 10:00 Enoxaparin Sodium 40 Mg/0.4 Ml Syringe SQ 03/03/22 09:59 DAILY EROS Ondansetron HCl 4 mg 01/31/22 14:49 Ondansetron Hcl 4 Mg/2 Ml Vial IV 03/02/22 14:48 Q6H PRN PRN NAUSEA/VOMITING Pantoprazole Sodium 40 mg 02/01/22 10:00 Pantoprazole 40 Mg Vial IV 03/03/22 09:59 Q24H10 EROS Discontinued Medications Generic Name Dose Route Start Last Admin Trade Name Freq PRN Reason Stop Dose Admin Furosemide 40 mg 01/31/22 14:33 01/31/22 14:35 Furosemide 40 Mg/4 Ml Vial IV 01/31/22 14:34 40 mg STAT ONE Administration Furosemide Confirm 01/31/22 14:34 Furosemide 40 Mg/4 Ml Vial Administered 01/31/22 14:35 Dose 40 mg .ROUTE .Publish2-MED ONE Lab/Rad Data: Laboratory Result Diagrams 01/31/22 12:12 01/31/22 12:12 Laboratory Results 01/31/22 01/31/22 01/31/22 Range/Units 13:24 12:12 12:12 WBC (4.0-10.5) x10^3/uL RBC (4.1-5.6) x10^6/uL Hgb (12.5-18.0) g/dL Hct (42-50) % MCV (78-100) fL MCH (26-32) pg MCHC (32-36) g/dL RDW (11.5-14.0) % Plt Count (150-450) x10^3/uL MPV (7.5-11.0) fL Gran % (36.0-66.0) % Immature Gran % (Auto) (0.00-0.4) % Nucleat RBC Rel Count (0.00-0.1) % Eos # (Auto) (0-0.5) x10^3/uL Immature Gran # (Auto) (0.00-0.03) x10^3u/L Absolute Lymphs (auto) (1.0-4.6) x10^3/uL Absolute Monos (auto) (0.0-1.3) x10^3/uL Absolute Nucleated RBC (0.00-0.01) x10^3u/L Lymphocytes % (24.0-44.0) % Monocytes % (0.0-12.0) % Eosinophils % (0.00-5.0) % Basophils % (0.0-0.4) % Absolute Granulocytes (1.4-6.9) x10^3/uL Basophils # (0-0.4) x10^3/uL Sodium (137-145) mmol/L Potassium (3.5-5.1) mmol/L Chloride (98-107) mmol/L Carbon Dioxide (22-30) mmol/L Anion Gap (5-15) MEQ/L BUN (9-20) mg/dL Creatinine (0.66-1.25) mg/dL Estimated GFR ML/MIN Glucose (74-106) mg/dL Lactic Acid (0.4-2.0) Uric Acid 6.7 (3.5-7.2) mg/dL Calcium (8.4-10.2) mg/dL Total Bilirubin (0.2-1.3) mg/dL AST (17-59) U/L ALT (0-50) U/L Alkaline Phosphatase (38-126) U/L Troponin I 0.012 (0.000-0.034) ng/mL NT-Pro-B Natriuret Pep (0-1800) pg/mL Serum Total Protein (6.3-8.2) g/dL Albumin (3.5-5.0) g/dL Influenza Type A Ag NEGATIVE (NEGATIVE) Influenza Type B Ag NEGATIVE (NEGATIVE) RSV (PCR) NEGATIVE (Negative) SARS-CoV-2 (PCR) NEGATIVE (NEGATIVE) 01/31/22 01/31/22 01/31/22 Range/Units 12:12 12:12 12:10 WBC 9.1 (4.0-10.5) x10^3/uL RBC 3.51 L (4.1-5.6) x10^6/uL Hgb 12.1 L (12.5-18.0) g/dL Hct 35.9 L (42-50) % MCV 102.3 H (78-100) fL MCH 34.5 H (26-32) pg MCHC 33.7 (32-36) g/dL RDW 13.1 (11.5-14.0) % Plt Count 248 (150-450) x10^3/uL MPV 11.3 H (7.5-11.0) fL Gran % 77.0 H (36.0-66.0) % Immature Gran % (Auto) 0.4 (0.00-0.4) % Nucleat RBC Rel Count 0.0 (0.00-0.1) % Eos # (Auto) 0.08 (0-0.5) x10^3/uL Immature Gran # (Auto) 0.04 H (0.00-0.03) x10^3u/L Absolute Lymphs (auto) 1.08 (1.0-4.6) x10^3/uL Absolute Monos (auto) 0.87 (0.0-1.3) x10^3/uL Absolute Nucleated RBC 0.00 (0.00-0.01) x10^3u/L Lymphocytes % 11.9 L (24.0-44.0) % Monocytes % 9.6 (0.0-12.0) % Eosinophils % 0.9 (0.00-5.0) % Basophils % 0.2 (0.0-0.4) % Absolute Granulocytes 7.00 H (1.4-6.9) x10^3/uL Basophils # 0.02 (0-0.4) x10^3/uL Sodium 135 L (137-145) mmol/L Potassium 3.9 (3.5-5.1) mmol/L Chloride 101 (98-107) mmol/L Carbon Dioxide 27 (22-30) mmol/L Anion Gap 10.4 (5-15) MEQ/L BUN 11 (9-20) mg/dL Creatinine 0.73 (0.66-1.25) mg/dL Estimated GFR > 60.0 ML/MIN Glucose 102 (74-106) mg/dL Lactic Acid 1.1 (0.4-2.0) Uric Acid (3.5-7.2) mg/dL Calcium 8.6 (8.4-10.2) mg/dL Total Bilirubin 0.90 (0.2-1.3) mg/dL AST 20 (17-59) U/L ALT 12 (0-50) U/L Alkaline Phosphatase 81 (38-126) U/L Troponin I (0.000-0.034) ng/mL NT-Pro-B Natriuret Pep 4090 H (0-1800) pg/mL Serum Total Protein 6.7 (6.3-8.2) g/dL Albumin 3.9 (3.5-5.0) g/dL Influenza Type A Ag (NEGATIVE) Influenza Type B Ag (NEGATIVE) RSV (PCR) (Negative) SARS-CoV-2 (PCR) (NEGATIVE) - Progress Progress: improved Progress Note: 01/31/22 14:53 40mg IV Lasix Observation per Dr. Huerta Discussed with : Sarah Counseled pt/family regarding: lab results, diagnosis, need for follow-up, rad results - Departure Departure Disposition: Observation Clinical Impression: Cellulitis Condition: Stable Critical Care Time: No Referrals: ADRIAN FLOWERS NP [Primary Care Provider] - Follow up/PCP as directed
--- NOTE | 2022-01-31 13:09 | XRAY ---
Exam: Duplex Doppler Ultrasound of the right lower extremity. Comparison: Right lower extremity duplex Doppler ultrasound exam from 01/23/2022. Indication: 76-year-old male with edema/pain. Findings: The examination of the right lower extremity was carried out in the usual manner imaging indirect sales representative sections of the common femoral vein through the popliteal vein. The posterior tibial veins were also evaluated. Normal color flow was seen throughout. Normal spontaneous and phasic flow was seen at all indirect sales representative sections. There was normal transducer compression and doppler signal augmentation at all levels. The greater saphenous vein demonstrated normal transducer compression, color blood flow, and Doppler signal. Incidentally, a morphologically normal lymph node measuring 1.3 cm x 0.8 cm x 1.4 cm is seen within the proximal right thigh. Minimal arteriosclerotic vascular calcification is seen at the posterior margin of the right common femoral artery. Impression: 1. No evidence of deep venous thrombosis within the right lower extremity. This is unchanged from 01/23/2022.
--- NOTE | 2022-01-31 13:23 | XRAY ---
Exam: 3 views of the right foot from 01/31/2022. Comparison: 3 views the right foot from 01/23/2022. Indication: 76-year-old male with pain and swelling; no known injury. Findings: AP, oblique, and lateral radiographs of the right foot were obtained. The bones are mildly demineralized. There appears to be moderate soft tissue swelling overlying the dorsal aspect of the right foot on the lateral radiograph. This is about the same or slightly more pronounced as compared to 01/23/2022. No radiopaque soft tissue foreign body is seen. No acute fracture or dislocation is seen. There is a tiny plantar right calcaneal spur. Minimal ossification is seen adjacent to the posterior margin of the calcaneus. These findings are unchanged. I see moderate focal soft tissue swelling overlying the dorsal medial aspect of the interphalangeal joint of the right great toe. This is perhaps slightly less pronounced as compared to 01/23/2022. Mild degenerative changes are seen involving the interphalangeal joint of the right great toe, no change. No other significant bone or joint abnormality is seen. Impression: 1. No acute fracture or dislocation of the right foot is seen, no change from 01/23/2022. 2. There appears to be moderate soft tissue swelling overlying the dorsum of the right foot. This is about the same or slightly more pronounced as compared to 01/23/2022. 3. Moderate focal soft tissue swelling overlies the dorsal medial aspect of the interphalangeal joint of the right great toe. I believe this is slightly less pronounced as compared to 01/23/2022. Some adjacent mild degenerative changes of the interphalangeal joint of the right great toe are seen.
[2022-01-31 14:05] LABS: INFLUENZA A NEGATIVE (NEGATIVE); INFLUENZA B NEGATIVE (NEGATIVE); RESPIRATORY SYNCTIAL VIRUS NEGATIVE (Negative); SARS-CoV-2 Xpert Express NEGATIVE (NEGATIVE)
--- NOTE | 2022-01-31 14:07 | XRAY ---
Exam: AP upright portable chest film from 01/31/2022. Comparison: AP portable chest film from 10/23/2021. Indication: 76-year-old male with edema in right lower extremity. Findings: The patient is rotated mildly toward the right. A repeat image was obtained. Prior subtle alveolar/interstitial opacity within the right midlung field on 10/23/2021 is no longer seen. There appears to be some minimal linear atelectasis/scarring at the lateral left lung base adjacent to the hemidiaphragmatic surface. I don't believe this is significant. Both nipples are seen overlying the lower chest on the second image. The heart size appears within normal limits. Calcified, moderately tortuous thoracic aorta is seen. The mitesh and mediastinal structures appear intact. No other evidence of airspace infiltrate, vascular congestion, pneumothorax, or pleural fluid is seen. There is a tiny calcified granuloma within the peripheral left upper lung field representing no change. Mild lateral osteophyte formation is seen within the lower thoracic spine. Impression: 1. Minimal linear scarring/atelectasis at the lateral left lung base near the hemidiaphragmatic surface. This is nonspecific. 2. Otherwise, no acute cardiopulmonary disease is seen.
[2022-01-31] MEDS ORDERED: Lasix 40 MG/4 ML IV ONE (14:33)
[2022-01-31] MEDS ORDERED: Lasix 40 MG/4 ML ONE (14:34)
[2022-01-31] MEDS ORDERED: Zofran 4 MG/2 ML VIAL IV PRN (14:49)
[2022-01-31] MEDS ORDERED: VANCOMYCIN 1 GRAM/200 ML BAG 1 GM/200 ML PIGGYBACK IV SCH (15:00)
[2022-01-31] MEDS: ENOXAPARIN SODIUM SQ SCH (19:12)
[2022-01-31] MEDS: PROTONIX 40 MG IV IV SCH (19:12)
[2022-01-31] MEDS: VANCOMYCIN 1.25 GM/250 ML BAG 1.25 GM/250 ML PIGGYBACK IV SCH (21:28)
[2022-01-31] MEDS ORDERED: VANCOMYCIN 1.25 GM/250 ML BAG 1.25 GM/250 ML PIGGYBACK IV SCH (22:00)
[2022-02-01 04:59] LABS: Absolute Neutrophil Ct (ANC) 4.07 x10^3/uL (1.4-6.9); Basophil (Absolute #) 0.03 x10^3/uL (0-0.4); Eosinophil % 2.8 % (0.00-5.0); Eosinophil (Absolute #) 0.19 x10^3/uL (0-0.5); Hematocrit 36.2 % (42-50); Hemoglobin 12.1 g/dL (12.5-18.0); Lymphocyte (Absolute #) 1.57 x10^3/uL (1.0-4.6); Lymphocytes % 23.5 % (24.0-44.0); Mean Cell Volume 100.3 fL (78-100); Mean Corpuscular Hemoglobin 33.5 pg (26-32); Mean Corpuscular Hgb Concent. 33.4 g/dL (32-36); Monocyte (Absolute #) 0.77 x10^3/uL (0.0-1.3); Monocytes % 11.5 % (0.0-12.0); Neutrophil % 60.9 % (36.0-66.0); Platelet Count 239 x10^3/uL (150-450); Red Blood Count 3.61 x10^6/uL (4.1-5.6); White Blood Count 6.7 x10^3/uL (4.0-10.5)
[2022-02-01 05:39] LABS: ALBUMIN 3.4 g/dL (3.5-5.0); ALKALINE PHOSPHATASE 68 U/L (38-126); ANION GAP 8.9 MEQ/L (5-15); BLOOD UREA NITROGEN 12 mg/dL (9-20); CHLORIDE 99 mmol/L (98-107); Calcium 8.2 mg/dL (8.4-10.2); Carbon Dioxide 31 mmol/L (22-30); Creatinine 1 0.87 mg/dL (0.66-1.25); EST GLOMERULAR FILTRATION RATE > 60.0 ML/MIN; Glucose 99 mg/dL (74-106); Potassium 3.6 mmol/L (3.5-5.1); SGOT/AST 19 U/L (17-59); SGPT/ALT 13 U/L (0-50); SODIUM 135 mmol/L (137-145); Total Protein 6.3 g/dL (6.3-8.2)
--- NOTE | 2022-02-01 09:08 | PCM.HP ---
History of Present Illness - Chief Complaint Chief Complaint: cellulitis right lower extremity, Elevated BNP History of Present Illness: is a 76 year old male who was recently admitted with RLE cellulitis, was treated with IV vanc and rapidly improved, has worsened in the last few days in spite of discharge with po augmentin. he has no local physician. - Review of Systems Constitutional: No Fever, No Chills Respiratory: No Cough, No Short Of Breath Cardiac: No Chest Pain, No Edema, No Syncope Abdominal/Gastrointestinal: No Abdominal Pain, No Nausea, No Vomiting, No Diarrhea Skin: Cellulitis All Other Systems: Reviewed and Negative Medications & Allergies Home Medications: Home Medication List Lisinopril 10 mg [Zestril 10 MG] 10 mg PO DAILY 07/26/16 [History Confirmed 01/31/22] Allergies/Adverse Reactions: Allergies Allergy/AdvReac Type Severity Reaction Status Date / Time No Known Drug Allergies Allergy Verified 01/31/22 11:10 - Past Medical History Past Medical History: Yes Neurological History: No Pertinent History ENT History: No Pertinent History Cardiac History: Hypertension Respiratory History: No Pertinent History Endocrine Medical History: No Pertinent History Musculoskelatal History: Degenerative Disk Disease, Osteoarthritis GI Medical History: Hernia History: Other Pyscho-Social History: No Pertinent History Male Reproductive Disorders: Prostate Cancer, Prostate Problems Comment: prostate cancer, RLE cellulitis - Past Surgical History Past Surgical History: Yes Neuro Surgical History: No Pertinent History Cardiac History: No Pertinent History Respiratory Surgery: No Pertinent History GI Surgical History: Hernia Repair Genitourinary Surgical Hx: No Pertinent History Musculskeletal Surgical Hx: Orthopedic Surgery Male Surgical History: Prostate Surgery Other Surgical History: colonoscopy polyps removed, back, 2 hip replacements, back surgery - Social History Smoking Status: Never smoker Exposure to second hand smoke: No Alcohol: None, Daily Drug Use: none Significant Family History: no pertinent family hx - Physical Exam Vital Signs: Vital Signs - 24 hr Temp Pulse Resp BP Pulse Ox 02/01/22 07:56 97.1 F 67 19 132/81 92 L 02/01/22 04:00 98.0 F 57 L 20 120/65 95 01/31/22 23:44 99.3 F 69 18 116/66 95 01/31/22 19:48 97.6 F 74 20 108/57 92 L 01/31/22 15:27 98.3 F 70 18 171/85 98 01/31/22 15:00 68 18 160/96 97 01/31/22 14:54 98 01/31/22 14:00 72 16 152/84 96 01/31/22 13:18 76 18 146/85 98 01/31/22 12:10 66 17 145/86 98 01/31/22 11:11 98.1 F 71 17 145/93 98 General Appearance: no apparent distress Neurologic Exam: alert, oriented x 3 Respiratory Exam: normal breath sounds Cardiovascular Exam: regular rate/rhythm, normal heart sounds, normal peripheral pulses Gastrointestinal/Abdomen Exam: soft, normal bowel sounds, No tenderness, No mass Extremity Exam: pedal edema, swelling, other (mild erythema to dorsal surface of right foot, 1+ edema) Wound Assessment: Skin/Wound Assessment Wound/Incision Assessment Start: 01/31/22 20:51 Text: Status: Active Freq: Q6H Protocol: Document 02/01/22 07:34 DAVID (Rec: 02/01/22 07:37 DAVID [id number]) Wound/Incision Assessment Right Lower Foot Wound Assessment Shift Assessment Wound Type CELLULITIS Wound Stage Non Pressure Wound Drainage Amount None Comment MODERATE EDEMA NOTED WITH SLIGHT REDNESS NOTED TO RIGHT FOOT Wound Photo Photo Taken No Results - Labs Lab/Micro Results: Lab Results-Last 24 Hours 01/31/22 01/31/22 01/31/22 Range/Units 12:10 12:12 12:12 WBC 9.1 (4.0-10.5) x10^3/uL RBC 3.51 L (4.1-5.6) x10^6/uL Hgb 12.1 L (12.5-18.0) g/dL Hct 35.9 L (42-50) % MCV 102.3 H (78-100) fL MCH 34.5 H (26-32) pg MCHC 33.7 (32-36) g/dL RDW 13.1 (11.5-14.0) % Plt Count 248 (150-450) x10^3/uL MPV 11.3 H (7.5-11.0) fL Gran % 77.0 H (36.0-66.0) % Immature Gran % (Auto) 0.4 (0.00-0.4) % Nucleat RBC Rel Count 0.0 (0.00-0.1) % Eos # (Auto) 0.08 (0-0.5) x10^3/uL Immature Gran # (Auto) 0.04 H (0.00-0.03) x10^3u/L Absolute Lymphs (auto) 1.08 (1.0-4.6) x10^3/uL Absolute Monos (auto) 0.87 (0.0-1.3) x10^3/uL Absolute Nucleated RBC 0.00 (0.00-0.01) x10^3u/L Lymphocytes % 11.9 L (24.0-44.0) % Monocytes % 9.6 (0.0-12.0) % Eosinophils % 0.9 (0.00-5.0) % Basophils % 0.2 (0.0-0.4) % Absolute Granulocytes 7.00 H (1.4-6.9) x10^3/uL Basophils # 0.02 (0-0.4) x10^3/uL Sodium 135 L (137-145) mmol/L Potassium 3.9 (3.5-5.1) mmol/L Chloride 101 (98-107) mmol/L Carbon Dioxide 27 (22-30) mmol/L Anion Gap 10.4 (5-15) MEQ/L BUN 11 (9-20) mg/dL Creatinine 0.73 (0.66-1.25) mg/dL Estimated GFR > 60.0 ML/MIN Glucose 102 (74-106) mg/dL Lactic Acid 1.1 (0.4-2.0) Uric Acid (3.5-7.2) mg/dL Calcium 8.6 (8.4-10.2) mg/dL Total Bilirubin 0.90 (0.2-1.3) mg/dL AST 20 (17-59) U/L ALT 12 (0-50) U/L Alkaline Phosphatase 81 (38-126) U/L Troponin I (0.000-0.034) ng/mL NT-Pro-B Natriuret Pep 4090 H (0-1800) pg/mL Serum Total Protein 6.7 (6.3-8.2) g/dL Albumin 3.9 (3.5-5.0) g/dL Influenza Type A Ag (NEGATIVE) Influenza Type B Ag (NEGATIVE) RSV (PCR) (Negative) SARS-CoV-2 (PCR) (NEGATIVE) 01/31/22 01/31/22 01/31/22 Range/Units 12:12 12:12 13:24 WBC (4.0-10.5) x10^3/uL RBC (4.1-5.6) x10^6/uL Hgb (12.5-18.0) g/dL Hct (42-50) % MCV (78-100) fL MCH (26-32) pg MCHC (32-36) g/dL RDW (11.5-14.0) % Plt Count (150-450) x10^3/uL MPV (7.5-11.0) fL Gran % (36.0-66.0) % Immature Gran % (Auto) (0.00-0.4) % Nucleat RBC Rel Count (0.00-0.1) % Eos # (Auto) (0-0.5) x10^3/uL Immature Gran # (Auto) (0.00-0.03) x10^3u/L Absolute Lymphs (auto) (1.0-4.6) x10^3/uL Absolute Monos (auto) (0.0-1.3) x10^3/uL Absolute Nucleated RBC (0.00-0.01) x10^3u/L Lymphocytes % (24.0-44.0) % Monocytes % (0.0-12.0) % Eosinophils % (0.00-5.0) % Basophils % (0.0-0.4) % Absolute Granulocytes (1.4-6.9) x10^3/uL Basophils # (0-0.4) x10^3/uL Sodium (137-145) mmol/L Potassium (3.5-5.1) mmol/L Chloride (98-107) mmol/L Carbon Dioxide (22-30) mmol/L Anion Gap (5-15) MEQ/L BUN (9-20) mg/dL Creatinine (0.66-1.25) mg/dL Estimated GFR ML/MIN Glucose (74-106) mg/dL Lactic Acid (0.4-2.0) Uric Acid 6.7 (3.5-7.2) mg/dL Calcium (8.4-10.2) mg/dL Total Bilirubin (0.2-1.3) mg/dL AST (17-59) U/L ALT (0-50) U/L Alkaline Phosphatase (38-126) U/L Troponin I 0.012 (0.000-0.034) ng/mL NT-Pro-B Natriuret Pep (0-1800) pg/mL Serum Total Protein (6.3-8.2) g/dL Albumin (3.5-5.0) g/dL Influenza Type A Ag NEGATIVE (NEGATIVE) Influenza Type B Ag NEGATIVE (NEGATIVE) RSV (PCR) NEGATIVE (Negative) SARS-CoV-2 (PCR) NEGATIVE (NEGATIVE) 01/31/22 01/31/22 02/01/22 Range/Units 14:16 20:11 04:35 WBC 6.7 (4.0-10.5) x10^3/uL RBC 3.61 L (4.1-5.6) x10^6/uL Hgb 12.1 L (12.5-18.0) g/dL Hct 36.2 L (42-50) % MCV 100.3 H (78-100) fL MCH 33.5 H (26-32) pg MCHC 33.4 (32-36) g/dL RDW 13.0 (11.5-14.0) % Plt Count 239 (150-450) x10^3/uL MPV 11.0 (7.5-11.0) fL Gran % 60.9 (36.0-66.0) % Immature Gran % (Auto) 0.9 H (0.00-0.4) % Nucleat RBC Rel Count 0.0 (0.00-0.1) % Eos # (Auto) 0.19 (0-0.5) x10^3/uL Immature Gran # (Auto) 0.06 H (0.00-0.03) x10^3u/L Absolute Lymphs (auto) 1.57 (1.0-4.6) x10^3/uL Absolute Monos (auto) 0.77 (0.0-1.3) x10^3/uL Absolute Nucleated RBC 0.00 (0.00-0.01) x10^3u/L Lymphocytes % 23.5 L (24.0-44.0) % Monocytes % 11.5 (0.0-12.0) % Eosinophils % 2.8 (0.00-5.0) % Basophils % 0.4 (0.0-0.4) % Absolute Granulocytes 4.07 (1.4-6.9) x10^3/uL Basophils # 0.03 (0-0.4) x10^3/uL Sodium (137-145) mmol/L Potassium (3.5-5.1) mmol/L Chloride (98-107) mmol/L Carbon Dioxide (22-30) mmol/L Anion Gap (5-15) MEQ/L BUN (9-20) mg/dL Creatinine (0.66-1.25) mg/dL Estimated GFR ML/MIN Glucose (74-106) mg/dL Lactic Acid (0.4-2.0) Uric Acid (3.5-7.2) mg/dL Calcium (8.4-10.2) mg/dL Total Bilirubin (0.2-1.3) mg/dL AST (17-59) U/L ALT (0-50) U/L Alkaline Phosphatase (38-126) U/L Troponin I < 0.012 0.013 (0.000-0.034) ng/mL NT-Pro-B Natriuret Pep (0-1800) pg/mL Serum Total Protein (6.3-8.2) g/dL Albumin (3.5-5.0) g/dL Influenza Type A Ag (NEGATIVE) Influenza Type B Ag (NEGATIVE) RSV (PCR) (Negative) SARS-CoV-2 (PCR) (NEGATIVE) 02/01/22 Range/Units 04:35 WBC (4.0-10.5) x10^3/uL RBC (4.1-5.6) x10^6/uL Hgb (12.5-18.0) g/dL Hct (42-50) % MCV (78-100) fL MCH (26-32) pg MCHC (32-36) g/dL RDW (11.5-14.0) % Plt Count (150-450) x10^3/uL MPV (7.5-11.0) fL Gran % (36.0-66.0) % Immature Gran % (Auto) (0.00-0.4) % Nucleat RBC Rel Count (0.00-0.1) % Eos # (Auto) (0-0.5) x10^3/uL Immature Gran # (Auto) (0.00-0.03) x10^3u/L Absolute Lymphs (auto) (1.0-4.6) x10^3/uL Absolute Monos (auto) (0.0-1.3) x10^3/uL Absolute Nucleated RBC (0.00-0.01) x10^3u/L Lymphocytes % (24.0-44.0) % Monocytes % (0.0-12.0) % Eosinophils % (0.00-5.0) % Basophils % (0.0-0.4) % Absolute Granulocytes (1.4-6.9) x10^3/uL Basophils # (0-0.4) x10^3/uL Sodium 135 L (137-145) mmol/L Potassium 3.6 (3.5-5.1) mmol/L Chloride 99 (98-107) mmol/L Carbon Dioxide 31 H (22-30) mmol/L Anion Gap 8.9 (5-15) MEQ/L BUN 12 (9-20) mg/dL Creatinine 0.87 (0.66-1.25) mg/dL Estimated GFR > 60.0 ML/MIN Glucose 99 (74-106) mg/dL Lactic Acid (0.4-2.0) Uric Acid (3.5-7.2) mg/dL Calcium 8.2 L (8.4-10.2) mg/dL Total Bilirubin 0.50 (0.2-1.3) mg/dL AST 19 (17-59) U/L ALT 13 (0-50) U/L Alkaline Phosphatase 68 (38-126) U/L Troponin I (0.000-0.034) ng/mL NT-Pro-B Natriuret Pep (0-1800) pg/mL Serum Total Protein 6.3 (6.3-8.2) g/dL Albumin 3.4 L (3.5-5.0) g/dL Influenza Type A Ag (NEGATIVE) Influenza Type B Ag (NEGATIVE) RSV (PCR) (Negative) SARS-CoV-2 (PCR) (NEGATIVE) - Radiology Impressions Radiology Exams & Impressions: Radiology Procedures Category Date Time Status CHEST 1 VIEW (PORTABLE) Stat Exams 01/31/22 13:09 Completed FOOT (MINIMUM 3 VIEWS) Stat Exams 01/31/22 12:24 Completed VENOUS UNILAT/LIMITED EXTREMIT [US] Stat Exams 01/31/22 11:55 Completed Assessment/Plan (1) Cellulitis Current Visit: Yes Status: Acute Qualifiers: Assessment & Plan: continue IV vanc, rapidly improving once again with IV therapy, will likely need at least 10 days of IV vanc on discharge. Code(s): L03.90 - CELLULITIS, UNSPECIFIED (2) Failure of outpatient treatment Current Visit: Yes Status: Acute Assessment & Plan: see above Code(s): Z78.9 - OTHER SPECIFIED HEALTH STATUS (3) Leg edema, right Current Visit: No Status: Acute Assessment & Plan: improved with lasix. echo on 01/25/22 reviewed with EF 60% and no issues otherwise Code(s): R60.0 - LOCALIZED EDEMA
[2022-02-01] MEDS: VANCOMYCIN 1.25 GM/250 ML BAG 1.25 GM/250 ML PIGGYBACK IV SCH ×2 (09:29→21:31)
[2022-02-01] MEDS: ENOXAPARIN SODIUM SQ SCH (09:29)
[2022-02-01] MEDS: PROTONIX 40 MG IV IV SCH (09:30)
[2022-02-01] MEDS: LASIX 20 MG PO SCH (09:35)
[2022-02-01] MEDS: Klor Con PO SCH (09:35)
[2022-02-01] MEDS: Zestril 10 MG PO SCH (10:00)
[2022-02-01] MEDS: NORCO 5/325 MG PO PRN (21:31)
[2022-02-02 05:46] LABS: Absolute Neutrophil Ct (ANC) 3.34 x10^3/uL (1.4-6.9); Basophil (Absolute #) 0.04 x10^3/uL (0-0.4); Eosinophil % 2.9 % (0.00-5.0); Eosinophil (Absolute #) 0.18 x10^3/uL (0-0.5); Hematocrit 37.2 % (42-50); Hemoglobin 12.3 g/dL (12.5-18.0); Lymphocyte (Absolute #) 1.81 x10^3/uL (1.0-4.6); Lymphocytes % 29.2 % (24.0-44.0); Mean Cell Volume 101.9 fL (78-100); Mean Corpuscular Hemoglobin 33.7 pg (26-32); Mean Corpuscular Hgb Concent. 33.1 g/dL (32-36); Mean Platelet Volume 11.3 fL (7.5-11.0); Monocyte (Absolute #) 0.76 x10^3/uL (0.0-1.3); Monocytes % 12.3 % (0.0-12.0); Platelet Count 268 x10^3/uL (150-450); Red Blood Count 3.65 x10^6/uL (4.1-5.6); Red Cell Distribution Width 13.2 % (11.5-14.0); White Blood Count 6.2 x10^3/uL (4.0-10.5)
[2022-02-02 06:55] LABS: ANION GAP 9.1 MEQ/L (5-15); BLOOD UREA NITROGEN 17 mg/dL (9-20); CHLORIDE 101 mmol/L (98-107); Calcium 8.4 mg/dL (8.4-10.2); Carbon Dioxide 31 mmol/L (22-30); Creatinine 1 0.83 mg/dL (0.66-1.25); EST GLOMERULAR FILTRATION RATE > 60.0 ML/MIN; Glucose 106 mg/dL (74-106); MAGNESIUM 2.2 mg/dL (1.6-2.3); NT PRO BNP 1150 pg/mL (0-1800); Potassium 3.6 mmol/L (3.5-5.1); SODIUM 137 mmol/L (137-145)
--- NOTE | 2022-02-02 09:05 | PCM.NOTE ---
Date and Time: 02/02/22903 Subjective Assessment: doing much better, pain and swelling/redness in right foot is greatly improved with IV therapy Objective Exam General Appearance: no apparent distress Neurologic Exam: alert, oriented x 3 Wound Assessment: Skin/Wound Assessment Wound/Incision Assessment Start: 01/31/22 20:51 Text: Status: Active Freq: Q6H Protocol: Document 02/02/22 08:00 AR (Rec: 02/02/22 08:19 AR [id number]) Wound/Incision Assessment Right Lower Foot Wound Assessment Shift Assessment Wound Type CELLULITIS Wound Stage Non Pressure Wound Drainage Amount None Surrounding Tissue [employer] Comment SWOLLEN, WARM TO TOUCH, MILD REDNESS NOTED Wound Photo Photo Taken No Respiratory Exam: normal breath sounds, lungs clear, No respiratory distress Cardiovascular Exam: regular rate/rhythm, normal heart sounds Gastrointestinal/Abdomen Exam: soft, No tenderness, No mass Extremity Exam: other (mild swelling, minimal erythema to right foot) OBJECTIVE DATA Vital Signs: Vital Signs - 24 hr Temp Pulse Resp BP Pulse Ox 02/02/22 07:49 97.5 F 53 L 19 118/60 95 02/02/22 04:00 97.5 F 55 L 18 119/65 99 02/01/22 23:34 97.0 F 67 20 113/64 95 02/01/22 20:00 97.7 F 76 20 142/82 95 02/01/22 16:00 97.8 F 74 23 123/59 91 L 02/01/22 12:00 97.3 F 64 21 120/60 92 L Pain Assessment - Last Documented Pain Intensity 0 Pain Scale Used [facility] Intake and Output: Intake & Output 01/30/22 01/31/22 02/01/22 02/02/22 11:59 11:59 11:59 11:59 Intake Total 1220 640 Output Total 3573 2600 Balance -2355 -1960 Weight 96.615 kg 105.1 kg Lab Results: Lab Results-Last 24 Hours 02/02/22 02/02/22 Range/Units 04:25 04:25 WBC 6.2 (4.0-10.5) x10^3/uL RBC 3.65 L (4.1-5.6) x10^6/uL Hgb 12.3 L (12.5-18.0) g/dL Hct 37.2 L (42-50) % MCV 101.9 H (78-100) fL MCH 33.7 H (26-32) pg MCHC 33.1 (32-36) g/dL RDW 13.2 (11.5-14.0) % Plt Count 268 (150-450) x10^3/uL MPV 11.3 H (7.5-11.0) fL Gran % 54.0 (36.0-66.0) % Immature Gran % (Auto) 1.0 H (0.00-0.4) % Nucleat RBC Rel Count 0.0 (0.00-0.1) % Eos # (Auto) 0.18 (0-0.5) x10^3/uL Immature Gran # (Auto) 0.06 H (0.00-0.03) x10^3u/L Absolute Lymphs (auto) 1.81 (1.0-4.6) x10^3/uL Absolute Monos (auto) 0.76 (0.0-1.3) x10^3/uL Absolute Nucleated RBC 0.00 (0.00-0.01) x10^3u/L Lymphocytes % 29.2 (24.0-44.0) % Monocytes % 12.3 H (0.0-12.0) % Eosinophils % 2.9 (0.00-5.0) % Basophils % 0.6 (0.0-0.4) % Absolute Granulocytes 3.34 (1.4-6.9) x10^3/uL Basophils # 0.04 (0-0.4) x10^3/uL Sodium 137 (137-145) mmol/L Potassium 3.6 (3.5-5.1) mmol/L Chloride 101 (98-107) mmol/L Carbon Dioxide 31 H (22-30) mmol/L Anion Gap 9.1 (5-15) MEQ/L BUN 17 (9-20) mg/dL Creatinine 0.83 (0.66-1.25) mg/dL Estimated GFR > 60.0 ML/MIN Glucose 106 (74-106) mg/dL Calcium 8.4 (8.4-10.2) mg/dL Magnesium 2.2 (1.6-2.3) mg/dL NT-Pro-B Natriuret Pep 1150 (0-1800) pg/mL Radiology Exams: Radiology Procedures Category Date Time Status CHEST 1 VIEW (PORTABLE) Stat Exams 01/31/22 13:09 Completed FOOT (MINIMUM 3 VIEWS) Stat Exams 01/31/22 12:24 Completed VENOUS UNILAT/LIMITED EXTREMIT [US] Stat Exams 01/31/22 11:55 Completed Assessment/Plan (1) Cellulitis Current Visit: Yes Status: Acute Qualifiers: Assessment & Plan: much improved, possible discharge tomorrow with IV vanc for another 7 days after discharge Code(s): L03.90 - CELLULITIS, UNSPECIFIED (2) Failure of outpatient treatment Current Visit: Yes Status: Acute Code(s): Z78.9 - OTHER SPECIFIED HEALTH STATUS (3) Leg edema, right Current Visit: No Status: Acute Code(s): R60.0 - LOCALIZED EDEMA
[2022-02-02] MEDS ORDERED: TROUGH DRUG LEVELS IJ ONE (09:30)
[2022-02-02] MEDS: LASIX 20 MG PO SCH (10:39)
[2022-02-02] MEDS: ENOXAPARIN SODIUM SQ SCH (10:39)
[2022-02-02] MEDS: Klor Con PO SCH (10:39)
[2022-02-02] MEDS: PROTONIX 40 MG IV IV SCH (10:39)
[2022-02-02] MEDS: Zestril 10 MG PO SCH (10:39)
[2022-02-02] MEDS: VANCOMYCIN 1.5 GRAM/300 ML BAG 1.5 GM/300 ML PIGGYBACK IV SCH ×2 (10:44→21:48)
[2022-02-02] MEDS: VANCOMYCIN 1.25 GM/250 ML BAG 1.25 GM/250 ML PIGGYBACK IV SCH (11:06)
[2022-02-02] MEDS: NORCO 5/325 MG PO PRN ×2 (15:58→21:48)
[2022-02-03 05:14] VITALS: O2SAT 98
[2022-02-03] MEDS ORDERED: VANCOMYCIN 1.5 GRAM/300 ML BAG 1.5 GM/300 ML PIGGYBACK IV SCH (06:00)
[2022-02-03 07:37] VITALS: BP 103/66; PULSE 50
--- NOTE | 2022-02-03 08:41 | PCM.NOTE ---
Date and Time: 02/03/22 08 Subjective Assessment: right foot swelling is improved - Review of Systems Constitutional: No Fever, No Chills Eyes: No Symptoms Ears, Nose, & Throat: No Symptoms Respiratory: No Cough, No Short Of Breath Cardiac: No Chest Pain, No Edema, No Syncope Abdominal/Gastrointestinal: No Abdominal Pain, No Nausea, No Vomiting, No Diarrhea Genitourinary Symptoms: No Dysuria Musculoskeletal: No Back Pain, No Neck Pain Skin: Cellulitis (right foot), No Rash Neurological: No Dizziness, No Focal Weakness, No Sensory Changes Psychological: No Symptoms Endocrine: No Symptoms Hematologic/Lymphatic: No Symptoms Immunological/Allergic: No Symptoms Objective Exam General Appearance: no apparent distress, alert Neurologic Exam: alert, oriented x 3, cooperative, normal mood/affect, nml cerebellar function, sensation nml, No motor deficits Skin Exam: normal color, warm, dry Wound Assessment: Skin/Wound Assessment Wound/Incision Assessment Start: 01/31/22 20:51 Text: Status: Active Freq: Q6H Protocol: Document 02/03/22 07:52 SYED (Rec: 02/03/22 08:00 RG [id number]) Wound/Incision Assessment Right Lower Foot Wound Assessment Shift Assessment Wound Type CELLULITIS Wound Stage Non Pressure Wound Drainage Amount None Surrounding Tissue [place] Comment SWOLLEN, WARM TO TOUCH, MILD REDNESS NOTED Wound Photo Photo Taken No Eye Exam: PERRL, EOMI, eyes nml inspection Ears, Nose, Throat Exam: normal ENT inspection, pharynx normal, moist mucous membranes Neck Exam: normal inspection, non-tender, supple, full range of motion Respiratory Exam: normal breath sounds, lungs clear, No respiratory distress Cardiovascular Exam: regular rate/rhythm, normal heart sounds Gastrointestinal/Abdomen Exam: soft, No tenderness, No mass Extremity Exam: normal inspection, normal range of motion, inflammation, swelling (right foot) Back Exam: normal inspection, normal range of motion, No CVA tenderness, No vertebral tenderness Male Genitalia Exam: deferred Rectal Exam: deferred OBJECTIVE DATA Vital Signs: Vital Signs - 24 hr Temp Pulse Resp BP Pulse Ox 02/03/22 07:36 297.3 F 50 L 16 103/66 98 02/03/22 04:00 97.9 F 53 L 16 120/75 98 02/03/22 00:00 97.7 F 73 18 103/55 91 L 02/02/22 20:00 98.2 F 77 18 104/57 93 L 02/02/22 16:00 97.1 F 72 19 148/72 94 L 02/02/22 12:00 97.7 F 58 L 21 116/71 96 Pain Assessment - Last Documented Pain Intensity 0 Pain Scale Used FLACC Intake and Output: Intake & Output 01/31/22 02/01/22 02/02/22 02/03/22 11:59 11:59 11:59 11:59 Intake Total 1220 640 780 Output Total 3575 2600 1550 Balance -5415 -9464 -206 Weight 96.615 kg 105.1 kg Lab Results: Lab Results-Last 24 Hours 02/02/22 Range/Units 09:10 Vancomycin Trough 12.70 (10-20) ug/mL Multi-Disciplinary Progress Notes: Multi-Disciplinary Progress Notes 02/02/22 10:59 Case Management Note by Florinda Bonner S/W PATIENT ABOUT PLANS AT DC. HE REPORTS HE IS ABLE TO AMBULATE TO THE RESTROOM AND WILL BE ABLE TO RETURN TO [facility] FOR INFUSIONS. ( DAILY OR TWICE A DAY - HOWEVER ORDERED IS FINE WITH PATIENT). HE DENIES ANY NEW NEEDS AT TIME OF DC. OTPT TO USE PERIPHERAL IV FOR INFUSIONS, THIS SHOULD BE KEPT IN PLACE AT TIME OF DC Initialized on 02/02/22 10:59 - END OF NOTE 02/02/22 10:53 Case Management Note by Florinda Bonner Addendum entered by Florinda Bonner 02/02/22 10:58: PLACED ON CHART AND GIVEN TO EPIC DIRECTOR FOR WEEKEND USE Original Note: ORDER FOR OTPT VANC INFUSIONS ( PER VO FROM [facility] 02/02) WRITTEN AND TAKEN TO PHARMACY AND OTPT. DAY OF DC- EPIC DIRECTOR WILL NEED TO CALL WENDY GARZA (NAREN) TO NOTIFY HER OF ACTUAL DC DATE AND TO SCHEDULE PATIENT'S FIRST INFUSION. EPIC DIRECTOR WILL ALSO NEED TO ENSURE PHARMACY IS AWARE WELL. PATIENT WILL THEN NEED NOTIFIED OF INFUSION APT. INFO. Initialized on 02/02/22 10:53 - END OF NOTE Assessment/Plan (1) Cellulitis Current Visit: Yes Status: Acute Qualifiers: Site of cellulitis: extremity Site of cellulitis of extremity: lower extremity Laterality: right Qualified Code(s): L03.115 - Cellulitis of right lower limb Assessment & Plan: Chief Complaint Diagnosis CELLULITIS RLE Allergies Allergy/AdvReac Type Severity Reaction Status Date / Time No Known Drug Allergies Allergy Verified 01/31/22 11:10 Vital Signs (Last 24 hours) Temp Pulse Resp BP Pulse Ox 02/03/22 07:36 297.3 F 50 L 16 103/66 98 02/03/22 04:00 97.9 F 53 L 16 120/75 98 02/03/22 00:00 97.7 F 73 18 103/55 91 L 02/02/22 20:00 98.2 F 77 18 104/57 93 L 02/02/22 16:00 97.1 F 72 19 148/72 94 L 02/02/22 12:00 97.7 F 58 L 21 116/71 96 Current Medications Generic Name Dose Route Start Last Admin Trade Name Freq PRN Reason Stop Dose Admin Hydrocodone Bitart/Acetaminophen 2 tab 01/31/22 14:53 02/02/22 21:48 Hydrocodone/Apap 5/325 Mg Tablet PO 02/05/22 14:52 2 tab Q4H PRN PRN Administration PAIN Enoxaparin Sodium 40 mg 01/31/22 16:00 02/02/22 10:39 Enoxaparin Sodium 40 Mg/0.4 Ml Syringe SQ 03/02/22 15:59 40 mg DAILY EROS Administration Furosemide 20 mg 02/01/22 10:00 02/02/22 10:39 Furosemide 20 Mg Tablet PO 03/03/22 09:59 20 mg DAILY EROS Administration Vancomycin HCl 1.5 gm in 300 mls @ 150 mls/hr 02/02/22 11:00 02/02/22 21:48 Vancomycin 1.5 Gram/300 Ml Bag IV 02/03/22 23:30 150 mls/hr Q12HT EROS Administration Vancomycin HCl 1.5 gm in 300 mls @ 150 mls/hr 02/03/22 06:00 02/03/22 05:41 Vancomycin 1.5 Gram/300 Ml Bag IV 03/05/22 05:59 Not Given Q12H EROS Lisinopril 10 mg 02/01/22 10:00 02/02/22 10:39 Lisinopril 10 Mg Tablet PO 03/03/22 09:59 10 mg DAILY EROS Administration Ondansetron HCl 4 mg 01/31/22 14:49 Ondansetron Hcl 4 Mg/2 Ml Vial IV 03/02/22 14:48 Q6H PRN PRN NAUSEA/VOMITING Pantoprazole Sodium 40 mg 01/31/22 16:00 02/02/22 10:39 Pantoprazole 40 Mg Vial IV 03/02/22 15:59 40 mg Q24H10 EROS Administration Potassium Chloride 10 meq 02/01/22 10:00 02/02/22 10:39 Potassium Chloride Tab 10 Meq Tab PO 03/03/22 09:59 10 meq DAILY EROS Administration Discontinued Medications Generic Name Dose Route Start Last Admin Trade Name Nikoq PRN Reason Stop Dose Admin Device 1 02/02/22 09:30 02/02/22 11:05 Therapuetic Drug Level Monitor Each IJ 02/02/22 09:31 1 1XONLY ONE Administration Furosemide 40 mg 01/31/22 14:33 01/31/22 14:35 Furosemide 40 Mg/4 Ml Vial IV 01/31/22 14:34 40 mg STAT ONE Administration Furosemide Confirm 01/31/22 14:34 Furosemide 40 Mg/4 Ml Vial Administered 01/31/22 14:35 Dose 40 mg .ROUTE .STK-MED ONE Vancomycin HCl 1 gm in 200 mls @ 125 mls/hr 01/31/22 15:00 01/31/22 15:09 Vancomycin 1 Gram/200 Ml Bag IV 03/02/22 14:59 125 ml/hr Q12H EROS 125 mls/hr Administration Vancomycin HCl 1.25 gm in 250 mls @ 166.667 mls/hr 01/31/22 22:00 Vancomycin 1.25 Gm/250 Ml Bag IV 02/03/22 21:59 Q12HT EROS Vancomycin HCl 1.25 gm in 250 mls @ 166.667 mls/hr 01/31/22 22:00 02/02/22 11:06 Vancomycin 1.25 Gm/250 Ml Bag IV 02/03/22 21:59 Not Given Q12HT EROS Intake & Output (Last 24 hours) 01/31/22 02/01/22 02/02/22 02/03/22 11:59 11:59 11:59 11:59 Intake Total 1220 640 780 Output Total 1452 4257 4442 Balance -3255 -2015 -995 Weight 96.615 kg 105.1 kg Microbiology Results (Last 24 hours) 01/31/22 11:21 Blood Blood Culture Gram Stain - Pending 01/31/22 11:21 Blood Blood Culture - Preliminary NO GROWTH TO DATE 01/31/22 15:12 Blood Blood Culture Gram Stain - Pending 01/31/22 15:12 Blood Blood Culture - Preliminary NO GROWTH TO DATE Laboratory Results (Last 24 hours) 02/02/22 09:10 Vancomycin Trough 12.70 Orders (Last 24 hours) Category Date Time Status Vancomycin, Trough Urgent Lab 02/02/22 09:10 Completed Therapuetic Drug Level Monitor [Trough Drug Levels] Med 02/02/22 09:30 Discontinued 1 IJ 1XONLY ONE Vancomycin/Water For Inj (Peg) [Vancomycin 1.5 Gram/300 Med 02/03/22 06:00 Active ml Bag] 1.5 gm in 300 ml IV Q12H Vancomycin/Water For Inj (Peg) [Vancomycin 1.5 Gram/300 Med 02/02/22 11:00 Active ml Bag] 1.5 gm in 300 ml IV Q12HT Patient Care Notes (Last 24 hours) 02/02/22 10:59 Case Management Note by Florinda Bonner S/W PATIENT ABOUT PLANS AT DC. HE REPORTS HE IS ABLE TO AMBULATE TO THE [facility] AND WILL BE ABLE TO RETURN TO [facility] FOR INFUSIONS. ( DAILY OR TWICE A DAY - HOWEVER ORDERED IS FINE WITH PATIENT). HE DENIES ANY NEW NEEDS AT TIME OF DC. OTPT TO USE PERIPHERAL IV FOR INFUSIONS, THIS SHOULD BE KEPT IN PLACE AT TIME OF DC Initialized on 02/02/22 10:59 - END OF NOTE 02/02/22 10:53 Case Management Note by Florinda Bonner Addendum entered by Florinda Bonner 02/02/22 10:58: PLACED ON CHART AND GIVEN TO EPIC DIRECTOR FOR WEEKEND USE Original Note: ORDER FOR OTPT VANC INFUSIONS ( PER VO FROM [facility] 02/02) WRITTEN AND TAKEN TO PHARMACY AND OTPT. DAY OF DC- EPIC DIRECTOR WILL NEED TO CALL WENDY GARZA (NAREN) TO NOTIFY HER OF ACTUAL DC DATE AND TO SCHEDULE PATIENT'S FIRST INFUSION. EPIC DIRECTOR WILL ALSO NEED TO ENSURE PHARMACY IS AWARE WELL. PATIENT WILL THEN NEED NOTIFIED OF INFUSION APT. INFO. Initialized on 02/02/22 10:53 - END OF NOTE Code(s): L03.90 - CELLULITIS, UNSPECIFIED (2) Leg edema, right Current Visit: Yes Status: Acute Code(s): R60.0 - LOCALIZED EDEMA
[2022-02-03] MEDS: VANCOMYCIN 1.5 GRAM/300 ML BAG 1.5 GM/300 ML PIGGYBACK IV SCH (08:56)
[2022-02-03] MEDS: PROTONIX 40 MG IV IV SCH (09:03)
[2022-02-03] MEDS: Zestril 10 MG PO SCH (09:05)
[2022-02-03] MEDS: LASIX 20 MG PO SCH (09:05)
[2022-02-03] MEDS: Klor Con PO SCH (09:05)
[2022-02-03] MEDS: ENOXAPARIN SODIUM SQ SCH (09:05)
--- NOTE | 2022-02-03 10:31 | PCM.DS ---
Discharge Summary Date of Admission: 02/01/22 09:05 Admitting Physician: MAGGIE MARADIAGA Primary Care Provider: ADRIAN FLOWERS Allergies Allergies No Known Drug Allergies Allergy (Verified 01/31/22 11:10) Hospital Summary - Hospital Course Hospital Course: Chief Complaint Diagnosis CELLULITIS RLE Allergies Allergy/AdvReac Type Severity Reaction Status Date / Time No Known Drug Allergies Allergy Verified 01/31/22 11:10 Vital Signs (Last 24 hours) Temp Pulse Resp BP Pulse Ox 02/03/22 07:36 97.3 F 50 L 16 103/66 98 02/03/22 04:00 97.9 F 53 L 16 120/75 98 02/03/22 00:00 97.7 F 73 18 103/55 91 L 02/02/22 20:00 98.2 F 77 18 104/57 93 L 02/02/22 16:00 97.1 F 72 19 148/72 94 L 02/02/22 12:00 97.7 F 58 L 21 116/71 96 Current Medications Generic Name Dose Route Start Last Admin Trade Name Freq PRN Reason Stop Dose Admin Hydrocodone Bitart/Acetaminophen 2 tab 01/31/22 14:53 02/02/22 21:48 Hydrocodone/Apap 5/325 Mg Tablet PO 02/05/22 14:52 2 tab Q4H PRN PRN Administration PAIN Enoxaparin Sodium 40 mg 01/31/22 16:00 02/03/22 09:05 Enoxaparin Sodium 40 Mg/0.4 Ml Syringe SQ 03/02/22 15:59 40 mg DAILY EROS Administration Furosemide 20 mg 02/01/22 10:00 02/03/22 09:05 Furosemide 20 Mg Tablet PO 03/03/22 09:59 20 mg DAILY EROS Administration Vancomycin HCl 1.5 gm in 300 mls @ 150 mls/hr 02/03/22 06:00 02/03/22 05:41 Vancomycin 1.5 Gram/300 Ml Bag IV 03/05/22 05:59 Not Given Q12H EROS Lisinopril 10 mg 02/01/22 10:00 02/03/22 09:05 Lisinopril 10 Mg Tablet PO 03/03/22 09:59 10 mg DAILY EROS Administration Ondansetron HCl 4 mg 01/31/22 14:49 Ondansetron Hcl 4 Mg/2 Ml Vial IV 10/14/22 14:48 Q6H PRN PRN NAUSEA/VOMITING Pantoprazole Sodium 40 mg 01/31/22 16:00 02/03/22 09:03 Pantoprazole 40 Mg Vial IV 03/02/22 15:59 40 mg Q24H10 EROS Administration Potassium Chloride 10 meq 02/01/22 10:00 02/03/22 09:05 Potassium Chloride Tab 10 Meq Tab PO 03/03/22 09:59 10 meq DAILY EROS Administration Discontinued Medications Generic Name Dose Route Start Last Admin Trade Name Freq PRN Reason Stop Dose Admin Device 1 02/02/22 09:30 02/02/22 11:05 Therapuetic Drug Level Monitor Each IJ 02/02/22 09:31 1 1XONLY ONE Administration Furosemide 40 mg 01/31/22 14:33 01/31/22 14:35 Furosemide 40 Mg/4 Ml Vial IV 01/31/22 14:34 40 mg STAT ONE Administration Furosemide Confirm 01/31/22 14:34 Furosemide 40 Mg/4 Ml Vial Administered 01/31/22 14:35 Dose 40 mg .ROUTE .STK-MED ONE Vancomycin HCl 1 gm in 200 mls @ 125 mls/hr 01/31/22 15:00 01/31/22 15:09 Vancomycin 1 Gram/200 Ml Bag IV 03/02/22 14:59 125 ml/hr Q12H EROS 125 mls/hr Administration Vancomycin HCl 1.25 gm in 250 mls @ 166.667 mls/hr 01/31/22 22:00 Vancomycin 1.25 Gm/250 Ml Bag IV 02/03/22 21:59 Q12HT EROS Vancomycin HCl 1.25 gm in 250 mls @ 166.667 mls/hr 01/31/22 22:00 02/02/22 11:06 Vancomycin 1.25 Gm/250 Ml Bag IV 02/03/22 21:59 Not Given Q12HT EROS Vancomycin HCl 1.5 gm in 300 mls @ 150 mls/hr 02/02/22 11:00 02/03/22 08:56 Vancomycin 1.5 Gram/300 Ml Bag IV 02/03/22 23:30 150 mls/hr Q12HT EROS Administration Intake & Output (Last 24 hours) 01/31/22 02/01/22 02/02/22 02/03/22 11:59 11:59 11:59 11:59 Intake Total 0111 932 7815 Output Total 1437 3520 1553 Balance -4655 -1960 -530 Weight 96.615 kg 105.1 kg Orders (Last 24 hours) Category Date Time Status Vancomycin/Water For Inj (Peg) [Vancomycin 1.5 Gram/300 Med 02/03/22 06:00 Active ml Bag] 1.5 gm in 300 ml IV Q12H Vancomycin/Water For Inj (Peg) [Vancomycin 1.5 Gram/300 Med 02/02/22 11:00 Discontinued ml Bag] 1.5 gm in 300 ml IV Q12HT Patient Care Notes (Last 24 hours) 02/02/22 10:59 Case Management Note by Florinda Bonner S/W PATIENT ABOUT PLANS AT DC. HE REPORTS HE IS ABLE TO AMBULATE TO THE RESTROOM AND WILL BE ABLE TO RETURN TO [facility] FOR INFUSIONS. ( DAILY OR TWICE A DAY - HOWEVER ORDERED IS FINE WITH PATIENT). HE DENIES ANY NEW NEEDS AT TIME OF DC. OTPT TO USE PERIPHERAL IV FOR INFUSIONS, THIS SHOULD BE KEPT IN PLACE AT TIME OF DC Initialized on 02/02/22 10:59 - END OF NOTE 02/02/22 10:53 Case Management Note by Florinda Bonner Addendum entered by Florinda Bonner 02/02/22 10:58: PLACED ON CHART AND GIVEN TO PACKING INSPECTOR FOR WEEKEND USE Original Note: ORDER FOR OTPT VANC INFUSIONS ( PER VO FROM [facility] 02/02) WRITTEN AND TAKEN TO PHARMACY AND OTPT. DAY OF DC- PACKING INSPECTOR WILL NEED TO CALL WENDY GARZA (OPS) TO NOTIFY HER OF ACTUAL DC DATE AND TO SCHEDULE PATIENT'S FIRST INFUSION. PACKING INSPECTOR WILL ALSO NEED TO ENSURE PHARMACY IS AWARE WELL. PATIENT WILL THEN NEED NOTIFIED OF INFUSION APT. INFO. Initialized on 02/02/22 10:53 - END OF NOTE - Vitals & Intake/Output Vital Signs: Vital Signs Temperature 97.3 F 02/03/22 07:36 Pulse Rate 50 L 02/03/22 07:36 Respiratory Rate 16 02/03/22 07:36 Blood Pressure 103/66 02/03/22 07:36 O2 Sat by Pulse Oximetry 98 02/03/22 07:36 Intake & Output: Intake & Output 01/31/22 02/01/22 02/02/22 02/03/22 11:59 11:59 11:59 11:59 Intake Total 8324 397 1903 Output Total 6495 2600 1550 Balance -1605 -6524 -530 Weight 96.615 kg 105.1 kg - Lab Result Diagrams: 02/02/22 04:25 02/02/22 04:25 Micro Results-Entire Visit: Microbiology 01/31/22 11:21 Blood Culture - Preliminary Blood NO GROWTH TO DATE 01/31/22 15:12 Blood Culture - Preliminary Blood NO GROWTH TO DATE Discharge Exam General Appearance: no apparent distress, alert Neurologic Exam: alert, oriented x 3, cooperative, normal mood/affect, nml cerebellar function, sensation nml, No motor deficits Eye Exam: PERRL, EOMI, eyes nml inspection Ears, Nose, Throat Exam: normal ENT inspection, pharynx normal, moist mucous membranes Neck Exam: normal inspection, non-tender, supple, full range of motion Respiratory Exam: normal breath sounds, lungs clear, No respiratory distress Cardiovascular Exam: regular rate/rhythm, normal heart sounds Gastrointestinal/Abdomen Exam: soft, No tenderness, No mass Male Genitalia Exam: deferred Rectal Exam: deferred Back Exam: normal inspection, normal range of motion, No CVA tenderness, No vertebral tenderness Extremity Exam: normal inspection, normal range of motion Skin Exam: normal color, warm, dry Wound Assessment: Skin/Wound Assessment Wound/Incision Assessment Start: 01/31/22 2 0:51 Text: Status: Active Freq: Q6H Protocol: Document 02/03/22 07:52 SYED (Rec: 02/03/22 08:00 SYED [id number]) Wound/Incision Assessment Right Lower Foot Wound Assessment Shift Assessment Wound Type CELLULITIS Wound Stage Non Pressure Wound Drainage Amount None Surrounding Tissue [place] Comment SWOLLEN, WARM TO TOUCH, MILD REDNESS NOTED Wound Photo Photo Taken No Final Diagnosis/Problem List - Final Discharge Diagnosis/Problem (1) Cellulitis Current Visit: Yes Status: Acute Assessment & Plan: improving Code(s): L03.90 - CELLULITIS, UNSPECIFIED (2) Leg edema, right Current Visit: Yes Status: Resolved Code(s): R60.0 - LOCALIZED EDEMA - Discharge Discharge Date: 02/03/22 Disposition: Home, Self-Care Condition: Stable Prescriptions: No Action Lisinopril 10 mg [Zestril 10 MG] 10 mg PO DAILY Additional Instructions: YOUR FIRST APT. FOR INFUSIONS IS YOU WILL NEED TO GO TO REGISTRATION ON THE FIRST DAY Follow up with: ADRIAN FLOWERS NP [Primary Care Provider] -
== END 2022-02-03 11:39 | disposition home or self-care (01) | DRG 603 ==
LOC: ED 10:19 → MED SURG 15:16 → OBSVTOIN 02-01 09:05
PROVIDERS: ADMIT Family Medicine; ATTEND Family Medicine
DX: L03.115 Cellulitis of right lower limb (principal); R60.0 Localized edema; I10 Essential (primary) hypertension; I11.0 Hypertensive heart disease with heart failure; Z85.46 Personal history of malignant neoplasm of prostate; Z79.899 Other long term (current) drug therapy; Z20.828 Contact with and (suspected) exposure to other viral communicable diseases
CPT/HCPCS: 0241U; 36000; 36415; 71045; 73630; 80048; 80053; 80202; 83605; 83735; 83880; 84484; 84550; 85025; 87040; 93005; 93971; 96374; 99285; G0378; 96365; 96366; 99211; J1650; J1940; A9270-GY; J3370

== ENCOUNTER 2022-02-17 10:53 | Inpatient (IN) | payer MEDICARE ==
[2022-02-17] MEDS: Sodium Chloride 0.9% 1000 ML 1,000 ML IV SCH (11:28)
--- NOTE | 2022-02-17 11:43 | ERPHSYRPT ---
- History of Present Illness Time Seen by Provider: 02/17/22 11:15 Source: patient Exam Limitations: no limitations Patient Subjective Stated Complaint: Swelling to Right foot Triage Nursing Assessment: Patient brought back to ED per w/c and transferred to bed with assist of 1. Patient A+O X 3. Patient's skin pink, warm and dry. Patient's skin pink, warm and dry. Patient complains of waking up with right foot red, swollen and warm. Patient has been dealing with this for over a month. Patient just finished IV vanc last Saturday. Patient complains of pain 02/26 to right foot. Right foot noted to be red, warm and swollen. Physician History: Patient is a 76-year-old male who has a history of recurrent cellulitis of the right foot. He has been admitted a couple of times most recently to Dr. Huerta since he had no local doctor and was discharged on 02/06 that was discharged was followed by infusions of IV vancomycin 1.5 g twice daily until 02/09. On 02/[address] Vega the make ready mechanic and at that time everything looked as if it was progressing nicely. This morning he awoke with the foot swollen red and hot. There is no open areas. Method of Injury: unknown Occurred: this morning Quality: aching, burning Severity of Pain-Max: moderate Severity of Pain-Current: moderate Modifying Factors: Improves With: nothing Associated Symptoms: none Allergies/Adverse Reactions: No Known Drug Allergies Allergy (Verified 02/17/22 11:04) Home Medications: Furosemide 20 mg [Lasix 20 mg] 1 tab PO DAILY 02/17/22 [History] Potassium Chloride [Klor-Con M10] 1 tab PO DAILY 02/17/22 [History] Hx Tetanus, Diphtheria Vaccination/Date Given: Yes Hx Influenza Vaccination/Date Given: No Hx Pneumococcal Vaccination/Date Given: No Immunizations Up to Date: Yes Travel Risk - International Travel Have you traveled outside of the country in past 3 weeks: No - Coronavirus Screening Are you exhibiting any of the following symptoms?: No Close contact with a COVID-19 positive Pt in past 14-21 Days: No - Vaccine Status Have you recieved a Covid-19 vaccination: Yes Engineering Test Specialist: Moderna - Vaccination Dates Date of 2cond Vaccination (if applicable): 2020 - Review of Systems Constitutional: Fever, Chills Eyes: No Symptoms Ears, Nose, & Throat: No Symptoms Respiratory: No Cough, No Dyspnea Cardiac: No Chest Pain, No Edema, No Syncope Abdominal/Gastrointestinal: No Abdominal Pain, No Nausea, No Vomiting, No Diarrhea Genitourinary Symptoms: No Dysuria Musculoskeletal: Joint Redness, Joint Pain, Joint Swelling, No Back Pain, No Neck Pain Skin: No Rash Neurological: No Dizziness, No Focal Weakness, No Sensory Changes Psychological: No Symptoms Endocrine: No Symptoms All Other Systems: Reviewed and Negative - Past Medical History Pertinent Past Medical History: Yes Neurological History: No Pertinent History ENT History: No Pertinent History Cardiac History: Hypertension Respiratory History: No Pertinent History Endocrine Medical History: No Pertinent History Musculoskeletal History: Degenerative Disk Disease, Osteoarthritis GI Medical History: Hernia History: Other Psycho-Social History: No Pertinent History Male Reproductive Disorders: Prostate Cancer, Prostate Problems Other Medical History: prostate cancer, RLE cellulitis - Past Surgical History Past Surgical History: Yes Neuro Surgical History: No Pertinent History Cardiac: No Pertinent History Respiratory: No Pertinent History Gastrointestinal: Hernia Repair Genitourinary: No Pertinent History Musculoskeletal: Orthopedic Surgery Male Surgical History: Prostate Surgery Other Surgical History: colonoscopy polyps removed, back, 2 hip replacements, back surgery - Social History Smoking Status: Never smoker Exposure to second hand smoke: No Drug Use: none Patient Lives Alone: No Significant Family History: no pertinent family hx - Nursing Vital Signs Nursing Vital Signs: Initial Vital Signs Temperature 98.3 F 02/17/22 11:07 Pulse Rate 59 L 02/17/22 11:07 Respiratory Rate 18 02/17/22 11:07 Blood Pressure 141/77 02/17/22 11:07 O2 Sat by Pulse Oximetry 97 02/17/22 11:07 Pain Scale Pain Intensity 10 - Physical Exam General Appearance: mild distress, alert Eyes, Ears, Nose, Throat Exam: moist mucous membranes Neck Exam: non-tender, supple Cardiovascular/Respiratory Exam: chest non-tender, normal breath sounds, regular rate/rhythm, no respiratory distress Gastrointestinal/Abdominal Exam: non-tender, guarding Back Exam: normal inspection, No vertebral tenderness Hips Exam: bilateral: non-tender, normal inspection, normal range of motion Legs Exam: bilateral leg: non-tender, normal inspection, normal range of motion Knees Exam: bilateral knee: non-tender, normal inspection, normal range of motion Ankle Exam: right ankle: limited range of motion, pain, soft tissue tenderness, swelling, left ankle: non-tender, normal inspection, normal range of motion Foot Exam: right foot: infection, limited range of motion, pain, soft tissue tenderness, swelling, left foot: non-tender, normal inspection, normal range of motion Neuro/Tendon Exam: normal sensation, normal motor functions Mental Status Exam: alert, oriented x 3, cooperative Skin Exam: normal color, warm, dry SpO2 Interpretation: normal SpO2: 97 O2 Delivery: Room Air - Course Nursing assessment & vital signs reviewed: Yes Ordered Tests: Active Orders 24 hr Category Date Time Status IV Insertion STAT Care 02/17/22 11:10 Active FOOT (MINIMUM 3 VIEWS) Stat Exams 02/17/22 11:20 Taken BLOOD CULTURE Stat Lab 02/17/22 11:55 Received CBC W DIFF Stat Lab 02/17/22 11:15 Received CMP Stat Lab 02/17/22 11:15 Received Lactic Acid Stat Lab 02/17/22 11:10 Ordered SED RATE [Erythrocyte Sedimentation Rate] Stat Lab 02/17/22 11:15 Received UA W/RFX CULTURE Stat Lab 02/17/22 11:33 Received Medication Summary Generic Name Dose Route Start Last Admin Trade Name Freq PRN Reason Stop Dose Admin Sodium Chloride 1,000 mls @ 50 mls/hr 02/17/22 11:15 02/17/22 11:28 Sodium Chloride 0.9% 1000 Ml IV 03/19/22 11:14 50 mls/hr .Q20H EROS Administration - Progress Progress: unchanged Discussed with Dr.: Kelley - Departure Departure Disposition: Observation Clinical Impression: Cellulitis of right foot Condition: Stable Critical Care Time: No Referrals: ADRIAN FLOWERS NP [Primary Care Provider] - Follow up/PCP as directed
[2022-02-17 11:53] LABS: Absolute Neutrophil Ct (ANC) 7.59 x10^3/uL (1.4-6.9); Basophil (Absolute #) 0.03 x10^3/uL (0-0.4); Eosinophil % 1.5 % (0.00-5.0); Eosinophil (Absolute #) 0.15 x10^3/uL (0-0.5); Hematocrit 36.2 % (42-50); Hemoglobin 11.9 g/dL (12.5-18.0); Lymphocyte (Absolute #) 1.22 x10^3/uL (1.0-4.6); Lymphocytes % 12.5 % (24.0-44.0); Mean Cell Volume 99.5 fL (78-100); Mean Corpuscular Hemoglobin 32.7 pg (26-32); Mean Corpuscular Hgb Concent. 32.9 g/dL (32-36); Mean Platelet Volume 11.3 fL (7.5-11.0); Monocyte (Absolute #) 0.72 x10^3/uL (0.0-1.3); Monocytes % 7.4 % (0.0-12.0); Neutrophil % 77.7 % (36.0-66.0); Platelet Count 281 x10^3/uL (150-450); Red Blood Count 3.64 x10^6/uL (4.1-5.6); Red Cell Distribution Width 12.9 % (11.5-14.0); White Blood Count 9.8 x10^3/uL (4.0-10.5)
[2022-02-17 12:10] LABS: ALBUMIN 3.7 g/dL (3.5-5.0); ALKALINE PHOSPHATASE 88 U/L (38-126); BLOOD UREA NITROGEN 14 mg/dL (9-20); Calcium 8.3 mg/dL (8.4-10.2); Carbon Dioxide 28 mmol/L (22-30); Creatinine 1 0.84 mg/dL (0.66-1.25); EST GLOMERULAR FILTRATION RATE > 60.0 ML/MIN; Glucose 116 mg/dL (74-106); SGOT/AST 30 U/L (17-59); SGPT/ALT 21 U/L (0-50); Total Protein 6.6 g/dL (6.3-8.2)
[2022-02-17 13:30] LABS: ANION GAP 11.5 MEQ/L (5-15); CHLORIDE 105 mmol/L (98-107); Potassium 3.9 mmol/L (3.5-5.1); SODIUM 138 mmol/L (137-145)
[2022-02-17 14:16] LABS: Appearance CLEAR (CLEAR); Bilirubin NEGATIVE (NEGATIVE); Dipstick done @ ? MAIN LAB; Glucose NEGATIVE (NEGATIVE); Ketones NEGATIVE (NEGATIVE); Nitrite NEGATIVE (NEGATIVE); Ph 5.5 (5-6); Protein,Urine Dip NEGATIVE (Negative); RBC NEGATIVE Ery/ul (0-5); Specific Gravity 1.015 (1.005-1.025); Urobilinogen 0.2 mg/dL (0-1)
[2022-02-17 14:27] LABS: INFLUENZA A NEGATIVE (NEGATIVE); INFLUENZA B NEGATIVE (NEGATIVE); RESPIRATORY SYNCTIAL VIRUS NEGATIVE (Negative); SARS-CoV-2 Xpert Express NEGATIVE (NEGATIVE)
[2022-02-17] MEDS: VANCOMYCIN 1.5 GRAM/300 ML BAG 1.5 GM/300 ML PIGGYBACK IV SCH (15:01)
[2022-02-17 17:18] LABS: Urine Cultured Indicated? NO
[2022-02-17] MEDS ORDERED: PIPERACILLIN/TAZOBACTAM IV ONE ×2 (17:56→22:59)
[2022-02-17] MEDS ORDERED: Sodium Chloride 100ML MINI-BAG PLUS 100 ML IV ONE ×2 (17:57→23:00)
[2022-02-17] MEDS: PIPERACILLIN/TAZOBACTAM 3.375 GM in Sodium Chloride 100ML MINI-BAG PLUS 100 ML IV SCH ×2 (18:27→23:33)
--- NOTE | 2022-02-17 19:22 | XRAY ---
Indication: Swelling. Comparison: January 31, 2022 3 nonweightbearing views right foot unchanged again demonstrating mild osteopenia, tiny posterior heel spur, tiny cuboid accessory ossicle, and diffuse soft tissue swelling including great toe. No new/acute abnormalities.
[2022-02-18] MEDS: VANCOMYCIN 1.5 GRAM/300 ML BAG 1.5 GM/300 ML PIGGYBACK IV SCH ×2 (02:06→13:51)
[2022-02-18] MEDS ORDERED: PIPERACILLIN/TAZOBACTAM IV ONE (05:07)
[2022-02-18] MEDS ORDERED: Sodium Chloride 100ML MINI-BAG PLUS 100 ML IV ONE (05:07)
[2022-02-18] MEDS: PIPERACILLIN/TAZOBACTAM 3.375 GM in Sodium Chloride 100ML MINI-BAG PLUS 100 ML IV SCH ×4 (05:32→23:41)
[2022-02-18 07:13] LABS: ALKALINE PHOSPHATASE 73 U/L (38-126); ANION GAP 8.4 MEQ/L (5-15); BLOOD UREA NITROGEN 12 mg/dL (9-20); CHLORIDE 107 mmol/L (98-107); Calcium 7.9 mg/dL (8.4-10.2); Carbon Dioxide 25 mmol/L (22-30); Creatinine 1 0.79 mg/dL (0.66-1.25); EST GLOMERULAR FILTRATION RATE > 60.0 ML/MIN; Glucose 111 mg/dL (74-106); Potassium 3.5 mmol/L (3.5-5.1); SGOT/AST 21 U/L (17-59); SGPT/ALT 17 U/L (0-50); SODIUM 136 mmol/L (137-145); Total Protein 5.9 g/dL (6.3-8.2)
[2022-02-18] MEDS: Sodium Chloride 0.9% 1000 ML 1,000 ML IV SCH (11:20)
[2022-02-18] MEDS: LASIX 20 MG PO SCH (14:36)
[2022-02-18] MEDS: Klor Con PO SCH (14:36)
[2022-02-18] MEDS ORDERED: TORAdol 10 MG TABLET PO PRN (19:47)
[2022-02-19] MEDS ORDERED: TROUGH DRUG LEVELS IJ ONE (01:30)
[2022-02-19 01:54] LABS: Hematocrit 34.6 % (42-50); Hemoglobin 11.1 g/dL (12.5-18.0); Mean Cell Volume 100.6 fL (78-100); Mean Corpuscular Hemoglobin 32.3 pg (26-32); Mean Corpuscular Hgb Concent. 32.1 g/dL (32-36); Mean Platelet Volume 11.4 fL (7.5-11.0); Platelet Count 236 x10^3/uL (150-450); Red Blood Count 3.44 x10^6/uL (4.1-5.6); Red Cell Distribution Width 12.5 % (11.5-14.0); White Blood Count 8.3 x10^3/uL (4.0-10.5)
[2022-02-19 02:05] LABS: ANION GAP 8.8 MEQ/L (5-15); BLOOD UREA NITROGEN 11 mg/dL (9-20); CHLORIDE 104 mmol/L (98-107); Carbon Dioxide 25 mmol/L (22-30); Creatinine 1 0.79 mg/dL (0.66-1.25); EST GLOMERULAR FILTRATION RATE > 60.0 ML/MIN; Glucose 118 mg/dL (74-106); Potassium 3.6 mmol/L (3.5-5.1); SODIUM 134 mmol/L (137-145)
[2022-02-19] MEDS: VANCOMYCIN 1.5 GRAM/300 ML BAG 1.5 GM/300 ML PIGGYBACK IV SCH ×2 (02:17→14:43)
[2022-02-19] MEDS: PIPERACILLIN/TAZOBACTAM 3.375 GM in Sodium Chloride 100ML MINI-BAG PLUS 100 ML IV SCH ×3 (06:08→18:00)
--- NOTE | 2022-02-19 06:36 | PCM.NOTE ---
Date and Time: 02/19/22632 Subjective Assessment: right lower leg redness and warmth improving, still has some swelling. he has been treated with IV antibiotics 3 separate rounds now. improved only for cellulitis to quickly recur. Objective Exam General Appearance: no apparent distress Neurologic Exam: alert, oriented x 3 Wound Assessment: Skin/Wound Assessment Wound/Incision Assessment Start: 02/17/22 15:58 Text: Status: Active Freq: Q6H Protocol: Document 02/19/22 02:00 RN (Rec: 02/19/22 02:07 RN [id number]) Wound/Incision Assessment Right Upper Foot Wound Assessment Shift Assessment Comment right knee-swollen, warm to touch Wound Photo Photo Taken No Respiratory Exam: normal breath sounds, lungs clear, No respiratory distress Cardiovascular Exam: regular rate/rhythm, normal heart sounds Gastrointestinal/Abdomen Exam: soft, No tenderness, No mass Extremity Exam: pedal edema, swelling, other (mild erythme right lateral foot, swelling and warmth present) OBJECTIVE DATA Vital Signs: Vital Signs - 24 hr Temp Pulse Resp BP Pulse Ox 02/19/22 03:49 97.8 F 67 17 129/71 92 L 02/18/22 23:48 98.4 F 78 17 118/67 92 L 02/18/22 19:46 97.7 F 66 18 152/75 95 02/18/22 16:00 98.6 F 67 16 123/56 93 L 02/18/22 12:00 97.9 F 70 16 126/62 98 02/18/22 06:53 98.0 F 66 16 113/60 95 Pain Assessment - Last Documented Pain Intensity 2 Pain Scale Used 0-10 Pain Scale Intake and Output: Intake & Output 02/16/22 02/17/22 02/18/22 02/19/22 11:59 11:59 11:59 11:59 Intake Total 3059 3069 Output Total 1000 1100 Balance 2058 1968 Weight 99.79 kg 103.6 kg Lab Results: Lab Results-Last 24 Hours 02/18/22 02/19/22 02/19/22 Range/Units 06:30 01:49 01:49 WBC 8.3 (4.0-10.5) x10^3/uL RBC 3.44 L (4.1-5.6) x10^6/uL Hgb 11.1 L (12.5-18.0) g/dL Hct 34.6 L (42-50) % MCV 100.6 H (78-100) fL MCH 32.3 H (26-32) pg MCHC 32.1 (32-36) g/dL RDW 12.5 (11.5-14.0) % Plt Count 236 (150-450) x10^3/uL MPV 11.4 H (7.5-11.0) fL Sodium 136 L 134 L (137-145) mmol/L Potassium 3.5 3.6 (3.5-5.1) mmol/L Chloride 107 104 (98-107) mmol/L Carbon Dioxide 25 25 (22-30) mmol/L Anion Gap 8.4 8.8 (5-15) MEQ/L BUN 12 11 (9-20) mg/dL Creatinine 0.79 0.79 (0.66-1.25) mg/dL Estimated GFR > 60.0 > 60.0 ML/MIN Glucose 111 H 118 H (74-106) mg/dL Calcium 7.9 L 8.0 L (8.4-10.2) mg/dL Total Bilirubin 0.40 (0.2-1.3) mg/dL AST 21 (17-59) U/L ALT 17 (0-50) U/L Alkaline Phosphatase 73 (38-126) U/L Serum Total Protein 5.9 L (6.3-8.2) g/dL Albumin 3.0 L (3.5-5.0) g/dL Vancomycin Trough (10-20) ug/mL 02/19/22 Range/Units 01:49 WBC (4.0-10.5) x10^3/uL RBC (4.1-5.6) x10^6/uL Hgb (12.5-18.0) g/dL Hct (42-50) % MCV (78-100) fL MCH (26-32) pg MCHC (32-36) g/dL RDW (11.5-14.0) % Plt Count (150-450) x10^3/uL MPV (7.5-11.0) fL Sodium (137-145) mmol/L Potassium (3.5-5.1) mmol/L Chloride (98-107) mmol/L Carbon Dioxide (22-30) mmol/L Anion Gap (5-15) MEQ/L BUN (9-20) mg/dL Creatinine (0.66-1.25) mg/dL Estimated GFR ML/MIN Glucose (74-106) mg/dL Calcium (8.4-10.2) mg/dL Total Bilirubin (0.2-1.3) mg/dL AST (17-59) U/L ALT (0-50) U/L Alkaline Phosphatase (38-126) U/L Serum Total Protein (6.3-8.2) g/dL Albumin (3.5-5.0) g/dL Vancomycin Trough 13.92 (10-20) ug/mL Radiology Exams: Radiology Procedures Category Date Time Status BONE THREE PHASE [NUCMED] Stat Exams 02/19/22 15:59 Ordered FOOT (MINIMUM 3 VIEWS) Stat Exams 02/17/22 11:20 Completed Assessment/Plan (1) Cellulitis of right foot Current Visit: Yes Status: Acute Assessment & Plan: continue vanc and zosyn, bone scan pending to r/o underlying osteomyelitis. will likely require ID consult with Dr Erazo following discharge due to recurrence of cellulitis Code(s): L03.115 - CELLULITIS OF RIGHT LOWER LIMB (2) Failure of outpatient treatment Current Visit: No Status: Acute Code(s): Z78.9 - OTHER SPECIFIED HEALTH STATUS
[2022-02-19] MEDS ORDERED: TORAdol 10 MG TABLET PO PRN (06:47)
[2022-02-19] MEDS: LASIX 20 MG PO SCH (09:48)
[2022-02-19] MEDS: Klor Con PO SCH (09:48)
--- NOTE | 2022-02-19 17:05 | XRAY ---
Indication: Right foot cellulitis. No known injury. Comparison: None Patient received 29.6 mCi technetium 99 MDP. Immediate anterior planar flow images of both feet. Anterior/posterior blood pool images of both knees and both feet obtained. 3 hour delayed delayed images obtained of the anterior/posterior knees and anterior/posterior/medial/lateral feet. Blood flow images demonstrates increased radiopharmaceutical activity to the right foot. Blood pool images also demonstrates mild increased radiopharmaceutical activity to the right midfoot. Delayed images demonstrates moderate size focus of increased radiopharmaceutical activity involving right midfoot, greatest laterally. Findings favor right mid foot cellulitis with underlying osteomyelitis. Incidental osteo-degenerative activity seen of the right knee, right 1st MTP/IP, right 2nd MTP, and left 5th MTP joints. Impression: 1. Positive 3 phase bone scan. Right midfoot cellulitis/osteomyelitis as detailed above. 2. Incidental osteo-degenerative activity also detailed above.
[2022-02-19] MEDS: Sodium Chloride 0.9% 1000 ML 1,000 ML IV SCH ×2 (21:22→23:21)
[2022-02-20] MEDS: VANCOMYCIN 1.5 GRAM/300 ML BAG 1.5 GM/300 ML PIGGYBACK IV SCH (01:58)
[2022-02-20 04:53] LABS: Absolute Neutrophil Ct (ANC) 4.21 x10^3/uL (1.4-6.9); Basophil (Absolute #) 0.03 x10^3/uL (0-0.4); Eosinophil % 4.9 % (0.00-5.0); Eosinophil (Absolute #) 0.32 x10^3/uL (0-0.5); Hematocrit 34.9 % (42-50); Hemoglobin 11.3 g/dL (12.5-18.0); Lymphocyte (Absolute #) 1.25 x10^3/uL (1.0-4.6); Lymphocytes % 19.1 % (24.0-44.0); Mean Cell Volume 100.9 fL (78-100); Mean Corpuscular Hemoglobin 32.7 pg (26-32); Mean Corpuscular Hgb Concent. 32.4 g/dL (32-36); Monocytes % 10.7 % (0.0-12.0); Neutrophil % 64.3 % (36.0-66.0); Platelet Count 225 x10^3/uL (150-450); Red Blood Count 3.46 x10^6/uL (4.1-5.6); Red Cell Distribution Width 12.7 % (11.5-14.0); White Blood Count 6.5 x10^3/uL (4.0-10.5)
[2022-02-20 05:19] LABS: ANION GAP 9.5 MEQ/L (5-15); BLOOD UREA NITROGEN 9 mg/dL (9-20); CHLORIDE 105 mmol/L (98-107); Carbon Dioxide 25 mmol/L (22-30); Creatinine 1 0.73 mg/dL (0.66-1.25); EST GLOMERULAR FILTRATION RATE > 60.0 ML/MIN; Glucose 98 mg/dL (74-106); Potassium 3.5 mmol/L (3.5-5.1); SODIUM 135 mmol/L (137-145)
[2022-02-20] MEDS: PIPERACILLIN/TAZOBACTAM 3.375 GM in Sodium Chloride 100ML MINI-BAG PLUS 100 ML IV SCH ×3 (06:05)
[2022-02-20 06:48] VITALS: BP 108/67; PULSE 62; O2SAT 94
[2022-02-20] MEDS: LASIX 20 MG PO SCH (09:30)
[2022-02-20] MEDS: Klor Con PO SCH (09:30)
--- NOTE | 2022-02-20 10:04 | PCM.DS ---
Discharge Summary Date of Admission: 02/18/22 09:00 Admitting Physician: C[place] LA Consults: Consults on Case 02/17/22 17:34 Consult Podiatry ONCE Primary Care Provider: ADRIAN FLOWERS Allergies Allergies No Known Drug Allergies Allergy (Verified 02/17/22 11:04) Hospital Summary - Hospital Course Hospital Course: Pt is a 76 yo male pt of Dr. Huerta' with HTN, hypothyroidism, hx prostate ca, hx gout, and anemia admitted with cellulitis R foot. He has had several admissions recently (3) for the same - will seem to improve, goes home (last admission went through infusion for IV vancomycin) then returns with cellulitis. Bone scan was done yesterday and showed R mid foot cellulitis with underlying osteomyelitis. I spoke with pt and the family; pt is interested in transfer to for ID consult and Dr. Huerta had discussed this in his note yesterday. I spoke with pharmacy and his current antibiotic regimen (vancomycin and zosyn) is typically appropriate for osteomyelitis, but with his prolonged courses of antibiotics, would definitely find benefit in Infectious Disease consult. Pt had the following antibiotics: Rocephin x1 on 10/23/21. Zosyn on 01/23/22-01/27/22. Vancomycin 1g from 01/23/22-01/25/22, then 1.25 g from 01/31/22-02/03/22, then 1.5 through 02/17/22. I spoke with the hospitalist, Dr. Dennis, at [facility], who will accept the patient for ID consult. Discussed that our ground support equipment assembler was consulted but is out currently and hasn't seen the patient. - Vitals & Intake/Output Vital Signs: Vital Signs Temperature 98.2 F 02/20/22 06:47 Pulse Rate 62 02/20/22 06:47 Respiratory Rate 17 02/20/22 06:47 Blood Pressure 108/67 02/20/22 06:47 O2 Sat by Pulse Oximetry 94 L 02/20/22 06:47 Intake & Output: Intake & Output 02/17/22 02/18/22 02/19/22 02/20/22 11:59 11:59 11:59 11:59 Intake Total 3059 3649 2197 Output Total 1000 1100 4680 Balance 5882 9800 -4447 Weight 99.79 kg 103.6 kg 103.6 kg - Lab Result Diagrams: 02/20/22 04:48 02/20/22 04:48 Lab Results-Last 24 Hrs: Lab Results-Last 24 Hours 02/17/22 02/20/22 02/20/22 Range/Units 11:15 04:48 04:48 WBC 6.5 (4.0-10.5) x10^3/uL RBC 3.46 L (4.1-5.6) x10^6/uL Hgb 11.3 L (12.5-18.0) g/dL Hct 34.9 L (42-50) % MCV 100.9 H (78-100) fL MCH 32.7 H (26-32) pg MCHC 32.4 (32-36) g/dL RDW 12.7 (11.5-14.0) % Plt Count 225 (150-450) x10^3/uL MPV 11.0 (7.5-11.0) fL Gran % 64.3 (36.0-66.0) % Immature Gran % (Auto) 0.5 H (0.00-0.4) % Nucleat RBC Rel Count 0.0 (0.00-0.1) % Eos # (Auto) 0.32 (0-0.5) x10^3/uL Immature Gran # (Auto) 0.03 (0.00-0.03) x10^3u/L Absolute Lymphs (auto) 1.25 (1.0-4.6) x10^3/uL Absolute Monos (auto) 0.70 (0.0-1.3) x10^3/uL Absolute Nucleated RBC 0.00 (0.00-0.01) x10^3u/L Lymphocytes % 19.1 L (24.0-44.0) % Monocytes % 10.7 (0.0-12.0) % Eosinophils % 4.9 (0.00-5.0) % Basophils % 0.5 (0.0-0.4) % Absolute Granulocytes 4.21 (1.4-6.9) x10^3/uL Basophils # 0.03 (0-0.4) x10^3/uL Sodium 135 L (137-145) mmol/L Potassium 3.5 (3.5-5.1) mmol/L Chloride 105 (98-107) mmol/L Carbon Dioxide 25 (22-30) mmol/L Anion Gap 9.5 (5-15) MEQ/L BUN 9 (9-20) mg/dL Creatinine 0.73 (0.66-1.25) mg/dL Estimated GFR > 60.0 ML/MIN Glucose 98 (74-106) mg/dL Calcium 8.0 L (8.4-10.2) mg/dL C-Reactive Prot, Quant 11 H (0-10) mg/L Micro Results-Entire Visit: Microbiology 02/17/22 11:55 Blood Culture - Preliminary Blood NO GROWTH TO DATE 02/17/22 11:15 Blood Culture - Preliminary Blood NO GROWTH TO DATE - Radiology Exams Ordered Rad Exams-Entire Visit: Radiology Procedures Category Date Time Status BONE THREE PHASE [NUCMED] Stat Exams 02/19/22 15:59 Completed Discharge Exam General Appearance: no apparent distress, alert, obese Neurologic Exam: oriented x 3, cooperative Eye Exam: eyes nml inspection Ears, Nose, Throat Exam: moist mucous membranes Neck Exam: normal inspection Respiratory Exam: normal breath sounds, lungs clear, No crackles/rales, No rhonchi, No wheezing Cardiovascular Exam: regular rate/rhythm, normal heart sounds, murmur (I/ sys murmur) Gastrointestinal/Abdomen Exam: normal bowel sounds Extremity Exam: other (R great toe enlarged. mild erythema distal foot. mild ttp. 1+ pitting edema R foot.) Final Diagnosis/Problem List - Final Discharge Diagnosis/Problem (1) Osteomyelitis of right foot Current Visit: Yes Status: Acute Code(s): M86.9 - OSTEOMYELITIS, UNSPECIFIED (2) HTN (hypertension) Current Visit: Yes Status: Acute Code(s): I10 - ESSENTIAL (PRIMARY) HYPERTENSION (3) Hypothyroid Current Visit: Yes Status: Acute Code(s): E03.9 - HYPOTHYROIDISM, UNSPECIFIED (4) Anemia Current Visit: Yes Status: Acute Code(s): D64.9 - ANEMIA, UNSPECIFIED - Discharge Disposition: DC TO [facility] Condition: Stable Prescriptions: No Action Potassium Chloride [Klor-Con M10] 1 tab PO DAILY Furosemide 20 mg [Lasix 20 mg] 1 tab PO DAILY Follow up with: JAFFRI,ANWER A [NON-STAFF PHY W/O PRIVILEGES] - (APPOINTMENT NEEDS TO BE MADE UPON DISCHARGE FOR CELLULITIS)
== END 2022-02-20 11:15 | disposition home or self-care (01) | DRG 540 ==
LOC: ED 10:53 → MED SURG 15:55 → OBSVTOIN 02-18 09:00
PROVIDERS: ADMIT Family Medicine; ATTEND Family Medicine
DX: M86.8X7 Other osteomyelitis, ankle and foot (principal); L03.115 Cellulitis of right lower limb; I10 Essential (primary) hypertension; E03.9 Hypothyroidism, unspecified; D64.9 Anemia, unspecified; Z79.899 Other long term (current) drug therapy; Z20.828 Contact with and (suspected) exposure to other viral communicable diseases; Z85.46 Personal history of malignant neoplasm of prostate
CPT/HCPCS: 0241U; 36000; 36415; 73630; 78315; 80048; 80053; 80202; 81015; 83605; 85025; 85027; 85652; 86140; 87040; 96365; 99284; A9503; G0378; A9270-GY; J3370

== ENCOUNTER 2023-06-17 08:26 | Day surgery (SDC) | payer MEDICARE ==
--- NOTE | 2023-06-17 08:13 | HP ---
DATE OF SURGERY: 06/17/2023 HISTORY OF PRESENT ILLNESS: The patient is a 78-year-old with history of polyps. No bloody stools. No change in bowel habits. No new pain. Family history of colon cancer. He is in need of follow up screening colonoscopy. PAST MEDICAL HISTORY: Gout. Hernia. Cataracts in the past. PAST SURGICAL HISTORY: Colonoscopy. Hernia repair. MEDICATIONS: Allopurinol, aspirin, Lasix, potassium chloride, ammonium lactate lotion. ALLERGIES: NKDA. FAMILY HISTORY: Negative in regards to this problem. SOCIAL HISTORY: No smoking or alcohol abuse. REVIEW OF SYSTEMS: Twelve systems reviewed. No chest pain or palpitations. Other systems negative or noncontributory as above and per preadmission questionnaire. PHYSICAL EXAMINATION: Height 5 feet 11 inches. BMI 29. GENERAL: No acute distress. HEENT: Sclerae nonicteric. EOMI. Oral mucous membranes moist. NECK: No JVD. CHEST: Equal excursion, nonlabored breathing. CVS: Regular rate and rhythm. ABDOMEN: Soft. No peritoneal signs. EXTREMITIES: No significant edema. NEURO: Alert, oriented, moving extremities symmetrically. RECTAL: Deferred timed to endoscopy exam. PSYCH: Appropriate mood and affect. SKIN: Dry. IMPRESSION: History of polyps in need of follow up screening colonoscopy. I feel he is a candidate. He was shown the risk sheet, explained the procedure in detail including but not limited to risk of bleeding or infection, risk of bowel injury or perforation, risk of missed or nondiagnosis or incomplete exam possibly requiring barium enema, other studies or procedures, general risk of anesthesia or sedation, risk of bowel prep but not limited to, consent obtained. Will proceed with outpatient screening colonoscopy under MAC anesthesia.
[2023-06-17 08:43] VITALS: RESP 18; O2SAT 95
[2023-06-17] MEDS ORDERED: Lactated Ringers 1,000 ML IV SCH (09:00)
[2023-06-17] MEDS ORDERED: DIPRIVAN 200 MG/20 ML IV ONE ×2 (10:56→11:09)
[2023-06-17] MEDS ORDERED: Versed 2 MG/2 ML Injection ONE (10:57)
[2023-06-17 12:10] VITALS: BP 148/82; PULSE 49; TEMP 97
--- NOTE | 2023-06-18 08:49 | OP ---
SURGERY DATE/TIME: 06/17/2023 1056 PREOPERATIVE DIAGNOSIS: History of polyps needs follow up screening colonoscopy. POSTOPERATIVE DIAGNOSES: 1) ASA Class II. 2) Colon polyps. 3) Limited bowel prep limiting exam for very small lesions. PROCEDURES: 1) Colonoscopy to what seemed to be the cecal area, small bowel dumping into the colon in right lower quadrant. 2) Hot snare polypectomy ascending colon polyp. 3) Hot snare polypectomy transverse colon polyp. SURGEON: Dr. Juan Mathews. ANESTHESIA: MAC. ESTIMATED BLOOD LOSS: Minimal. INDICATIONS: As noted above. Risks and benefits explained in detail but not limited to and consent obtained. DESCRIPTION OF PROCEDURE AND FINDINGS: The patient is taken to the endoscopy room. MAC anesthesia induced. After official time out and no disagreement with planned procedure, digital rectal exam did not reveal any rectal masses. Video colonoscope inserted and passed up through the slightly tortuous sigmoid, descending, transverse, ascending colon around to what seemed to be the appendiceal orifice area. Prep overall was limited. There was a thick coat of liquidy semisolid stool along the colon limiting the exam that required irrigating extensively still limited the exam for very small lesions. There was approximately a 4 mm polyp in the ascending colon removed with hot snare polypectomy with brief bursts of cautery. Good hemostasis noted. The base appeared to be viable. The scope is then carefully withdrawn. In the transverse colon there is another 2.5 mm polyp removed with hot snare polypectomy. There were no other signs of any other large polyps, masses or obstructing lesions but again the prep was limited and withdrawal time was at least 16 to 17 minutes. Findings discussed with the family out in the waiting area.
== END 2023-06-17 12:20 | disposition home or self-care (01) ==
LOC: SDC 08:26
PROVIDERS: ATTEND Surgery
DX: Z12.11 Encounter for screening for malignant neoplasm of colon (principal); Z09 Encounter for follow-up examination after completed treatment for conditions other than malignant neoplasm; Z86.010 Personal history of colon polyps; Z80.0 Family history of malignant neoplasm of digestive organs; D12.2 Benign neoplasm of ascending colon; D12.3 Benign neoplasm of transverse colon
CPT/HCPCS: 99100; J2250; J2704

== ENCOUNTER 2024-01-29 19:43 | Emergency (ER) | payer MEDICARE ==
[2024-01-29 20:32] VITALS: RESP 18; TEMP 97
--- NOTE | 2024-01-29 20:40 | ERPHSYRPT ---
- History of Present Illness Time Seen by Provider: 01/29/24 20:36 Source: patient Exam Limitations: no limitations Patient Subjective Stated Complaint: pt states he was moving a boat trailor and it moved off the legs and hit his foot Triage Nursing Assessment: pt ambulated into the er; pt is axo x4; c/o left foot injury; pt denies pain; pitting edema present to BLE, greater in the left; weak left pedal pulse; bruising present to LLE, left ankle; blacken area to left lower chin; vitals wnl; no respiratory distress present Physician History: 78-year-old male presents to emergency department for evaluation of pain to his left foot and left lower leg. Patient states a boat trailer rolled onto his leg. Injury occurred yesterday. Patient is here because he was encouraged to do so by friends and family. Patient declined pain medication. No active pain at rest. Pain occurs with weightbearing. No other injuries reported. Symptoms are mild in intensity at rest. Pain worse with weightbearing and movement. P atient otherwise feels well he voices no other complaints or concerns at this time. Portions of this note were created with voice recognition technology. There may be grammatical, spelling, punctuation or sound alike errors Method of Injury: direct blow Occurred: yesterday Quality: constant Severity of Pain-Max: moderate Severity of Pain-Current: mild Lower Extremities Pain: leg: left, foot: left, other: left (Left lower leg distal third there is an area of scab formation. The left foot is swollen. However it is well-perfused pink warm cap refill less than 2 seconds. Compartments are soft.) Modifying Factors: Improves With: movement Associated Symptoms: none Allergies/Adverse Reactions: No Known Drug Allergies Allergy (Verified 01/29/24 20:15) Home Medications: No Reportable Medications [No Reported Medications] 01/29/24 [History] Hx Tetanus, Diphtheria Vaccination/Date Given: Yes Hx Influenza Vaccination/Date Given: Yes Hx Pneumococcal Vaccination/Date Given: Yes Immunizations Up to Date: No Travel Risk - International Travel Have you traveled outside of the country in past 3 weeks: No - Emerging Infectious Disease Are you exhibiting symptoms associated with any current EIDs: No - Review of Systems Constitutional: No Symptoms, No Fever, No Chills Eyes: No Symptoms Ears, Nose, & Throat: No Symptoms Respiratory: No Symptoms, No Cough, No Dyspnea Cardiac: No Symptoms, No Chest Pain, No Edema, No Syncope Abdominal/Gastrointestinal: No Symptoms, No Abdominal Pain, No Nausea, No Vomiting, No Diarrhea Genitourinary Symptoms: No Symptoms, No Dysuria Musculoskeletal: No Symptoms, No Back Pain, No Neck Pain Skin: No Symptoms, No Rash Neurological: No Symptoms, No Dizziness, No Focal Weakness, No Sensory Changes Psychological: No Symptoms Endocrine: No Symptoms Hematologic/Lymphatic: No Symptoms Immunological/Allergic: No Symptoms All Other Systems: Reviewed and Negative - Past Medical History Pertinent Past Medical History: Yes Neurological History: No Pertinent History ENT History: No Pertinent History Cardiac History: Hypertension Respiratory History: No Pertinent History Endocrine Medical History: No Pertinent History Musculoskeletal History: Degenerative Disk Disease, Osteoarthritis GI Medical History: Hernia History: Other Psycho-Social History: No Pertinent History Male Reproductive Disorders: Prostate Cancer, Prostate Problems Other Medical History: prostate cancer, RLE cellulitis - Past Surgical History Past Surgical History: Yes Neuro Surgical History: No Pertinent History Cardiac: No Pertinent History Respiratory: No Pertinent History Gastrointestinal: Hernia Repair Genitourinary: No Pertinent History Musculoskeletal: Orthopedic Surgery Male Surgical History: Prostate Surgery Other Surgical History: colonoscopy polyps removed, back, 2 hip replacements, back surgery, finger sx a 2 yrs old Significant Family History: no pertinent family hx - Social History Smoking Status: Never smoker Exposure to second hand smoke: No Drug Use: none Patient Lives Alone: No - Social Determinants of Health Will the patient participate in the screening: Yes Do you worry about a steady place to live?: No Do you have any problems with any of the following?: No known problems In the past 12 months,have you had to go without utilities?: No Transportation Issues: No Has anyone in your support network made you feel unsafe?: No Have you or anyone in your house had to go without enough: No - Nursing Vital Signs Nursing Vital Signs: Initial Vital Signs Temperature 97.0 F 01/29/24 20:16 Pulse Rate 62 01/29/24 20:16 Respiratory Rate 18 01/29/24 20:16 Blood Pressure 137/83 01/29/24 20:16 O2 Sat by Pulse Oximetry 100 01/29/24 20:16 Pain Scale Pain Intensity 0 - Physical Exam General Appearance: alert Eyes, Ears, Nose, Throat Exam: moist mucous membranes Neck Exam: normal inspection, full range of motion Cardiovascular/Respiratory Exam: chest non-tender, normal breath sounds, regular rate/rhythm, no respiratory distress Gastrointestinal/Abdominal Exam: non-tender, guarding, No tenderness Back Exam: normal inspection, normal range of motion, No vertebral tenderness Hips Exam: bilateral: non-tender, normal inspection, normal range of motion, no evidence of injury Legs Exam: left leg: pain, soft tissue tenderness, swelling, other (There is scab formation to the anterior tibia distal third. No draining lesions. Some bruising around the posterior lateral foot) Knees Exam: bilateral knee: non-tender, normal inspection, normal range of motion, no evidence of injury Ankle Exam: bilateral ankle: non-tender, normal inspection, normal range of motion, no evidence of injury Foot Exam: left foot: pain, swelling, other (Pain and swelling to the dorsum of the left foot. Overlying soft tissue intact. No open or draining lesions) Neuro/Tendon Exam: normal sensation, normal motor functions Mental Status Exam: alert, oriented x 3, cooperative Skin Exam: normal color, warm, dry SpO2 Interpretation: normal SpO2: 100 O2 Delivery: Room Air - Course Nursing assessment & vital signs reviewed: Yes - Radiology Exams Foot X-ray Interpretation: Interpreted by me (No fracture or dislocation) Lower Leg X-ray Interpretation: Interpreted by me (No fracture or dislocation) Ordered Tests: Active Orders 24 hr Category Date Time Status FOOT (MINIMUM 3 VIEWS) Stat Exams 01/29/24 20:35 Taken LOWER LEG Stat Exams 01/29/24 20:35 Taken - Progress Progress: improved Progress Note: 78-year-old male presents to our ED for evaluation of pain to his right foot and lower leg status post blunt injury. Physical exam reveals resolving scab left lower leg. The involved extremities neurovascular tact distally compartments are soft cap refill less than 2 seconds. X-ray negative for fracture dislocation. Formal read pending. Patient declined pain medication. Referral to orthopedic clinic completed. Patient to follow- up with orthopedics tomorrow. Complexity problem addressed is moderate acute complicated. No critical care time. Complex of data reviewed and analyzed is moderate. Dr. Darell carmichael reviewed the x-rays of the right foot and leg. Risk of complication and or risk of morbidity/mortality patient management is low. Vital stable. Time spent to discharge patient approximately 15 minutes. Plan of care established for shared decision making. No social determinants of health present impede follow-up. Portions of this note were created with voice recognition technology. There may be grammatical, spelling, punctuation or sound alike errors 01/29/24 21:55 Counseled pt/family regarding: diagnosis, need for follow-up, rad results - Departure Departure Disposition: Home Clinical Impression: Foot contusion, Contusion of leg, left, Foot pain Condition: Stable Critical Care Time: No Referrals: ADRIAN FLOWERS NP [Primary Care Provider] - Follow up/PCP as directed Additional Instructions: Discharge/Care Plan GELY AWAD was seen on 01/29/24 in the Emergency Room. The patient was counseled regarding Diagnosis,Lab results, Imaging studies, need for follow up and when to return to the Emergency Room. Prescriptions given: Discharge Note I have spoken with the patient and/or caregivers. I have explained the patient's condition, diagnosis and treatment plan based on the information available to me at this time. I have answered the patient's and/or caregiver's questions and addressed any concerns. The patient and/or caregivers have as good understanding of the patient's diagnosis, condition and treatment plan as can be expected at this point. The vital signs have been stable. The patient's condition is stable and appropriate for discharge from the emergency department. The patient will pursue further outpatient evaluation with the primary care physician or other designated or consulting physician as outlined in the discharge instructions. The patient and/or caregivers are agreeable to this plan of care and follow-up instructions have been explained in detail. The patient and/or caregivers have received these instruction. The patient/and or caregivers are aware that any significant change in condition or worsening of symptoms shou ld prompt an immediate return to this or the closest emergency department or call 911. Outpatient Orders: Ortho Referral Time Frame: 1 Day, Facility: [facility], Location: ORTHO CLINIC
[2024-01-29 21:36] VITALS: BP 153/72; PULSE 59
[2024-01-29 21:55] VITALS: O2SAT 100
--- NOTE | 2024-01-30 08:53 | XRAY ---
Indication: Pain following injury 2 days ago. Comparison: None 2 view left lower leg demonstrates osteopenia and scattered proximal lower leg vascular calcifications. No other bony, articular, or soft tissue abnormalities.
--- NOTE | 2024-01-30 08:53 | XRAY ---
Indication: Pain following injury 2 days ago. Comparison: None 3 nonweightbearing views left foot demonstrates osteopenia, 2nd-5th hammertoe deformities, and small cuboid accessory ossicles. No other bony, articular, or soft tissue abnormalities.
== END 2024-01-29 22:02 | disposition home or self-care (01) ==
LOC: ED 19:43
DX: S90.32XA Contusion of left foot, initial encounter (principal); S80.12XA Contusion of left lower leg, initial encounter; W20.8XXA Other cause of strike by thrown, projected or falling object, initial encounter; M79.672 Pain in left foot; I10 Essential (primary) hypertension
CPT/HCPCS: 73590; 73630; 99282